=== PATIENT | male | born 1945 | race Caucasian/White ===

== ENCOUNTER → 2017-07-02 12:47 | Outpatient (CLI) | payer MEDICARE, OTHER, SELFPAY ==
--- NOTE | 2017-07-02 13:00 | ECHOCS_ITS ---
Reason For Study: Syncope, Near Syncope Procedure This was a 2D Doppler, Color Flow transthoracic echocardiogram. The exam was of poor technical quality due to body habitus. The study was technically difficult. Contrast injection was performed. Exam performed in department. Left Ventricle Normal LV size. Left ventricular systolic function is normal. The estimated ejection fraction is 65 %. No regional wall motion abnormalities noted. Right Ventricle Normal RV size. Normal systolic function. Atria Normal left atrium. Normal right atrium. No doppler evidence for ASD. Mitral Valve There is no mitral annular calcification. Normal mitral valve. Trivial mitral valve insufficiency. Tricuspid Valve Normal tricuspid valve. Trivial tricuspid valve insufficiency. Right ventricular systolic pressure estimated to be 28 mmHg. Aortic Valve Trisinus/trileaflet aortic valve. Normal aortic valve. Pulmonic Valve The pulmonic valve is not well visualized. Great Vessels Normal sized aortic root. Pericardium/Pleural No pericardial effusion. Medication Definity0.3ml given slow IV push to enhance endocardial definition. MMode/2D Measurements & Calculations LVIDd: 4.6 cm IVSd: 1.1 cm Ao root diam: 3.1 cm LVIDs: 2.7 cm LVPWd: 0.85 cm LA dimension: 4.3 cm RVDd: 3.8 cm FS: 42.7 % LAV(MOD-bp): 44.6 ml LA A4 area: 14.2 cm2 RA A4 area: 11.8 cm2 LAV(MOD-bp) Indexed: 20.9 ml/m2 LAV(MOD-sp2): 62.8 ml LAV(MOD-sp4): 29.7 ml Doppler Measurements & Calculations MV E max ashok: 53.4 cm/sec Lat Peak E' Ashok: 11.4 cm/sec Med Peak E' Ashok: 10.4 cm/sec MV A max ashok: 72.2 cm/sec E/E' lat: 4.7 E/E' med: 5.1 MV E/A: 0.74 Ao V2 max: 129.4 cm/sec LV V1 max: 115.6 cm/sec PA V2 max: 80.2 cm/sec Ao max P.7 mmHg LV V1 max P.3 mmHg Ao V2 mean: 95.2 cm/sec Ao mean P.9 mmHg Ao V2 VTI: 28.1 cm TR max ashok: 251.2 cm/sec TR max P.3 mmHg Interpretation Summary The study was technically difficult. Contrast injection was performed. Left ventricular systolic function is normal. The estimated ejection fraction is 65 %. Trivial mitral valve insufficiency. Trivial tricuspid valve insufficiency. Right ventricular systolic pressure estimated to be 28 mmHg. Ordering Physician: Giles Olguin Referring Physician: Jorge Jensen Chi Performed By: Darling Mcdonnell, DIANNE, RVT
== END ==
PROVIDERS: Family Provider Family Medicine Geriatric Medicine; PCP Family Medicine Geriatric Medicine; Visit Provider Internal Medicine Cardiovascular Disease
DX: R55 Syncope and collapse (principal)
CPT/HCPCS: 93306; Q9957; A4216; C8929

== ENCOUNTER → 2017-10-21 09:53 | Outpatient (CLI) | payer MEDICARE, OTHER, SELFPAY ==
[2017-10-21 12:56] LABS: Absolute Lymphocyte Count 1.49 X10^3/ul (0.83-4.51); Absolute Neutrophil Count 2.3 X10^3/uL (2.0-7.7); Basophil# 0.04 X10^3/uL; Basophil% 0.9 % (0-1); Eosinophil# 0.28 X10^3/uL; Hematocrit 43.8 % (40-54); Hemoglobin 14.8 g/dl (13.0-16.5); Lymphocyte # 1.49 X10^3/ul (4.0); Lymphocyte % 31.7 % (19-41); Mean Corp Hgb Conc 33.8 g/gl (32-36); Mean Corpuscular Hgb 31.3 pg (27.0-32.0); Mean Corpuscular Volume 92.6 fL (80-94); Mean Platelet Vol. 10.1 fl (6.2-12.0); Monocyte# 0.61 X10^3/uL; Neutrophil # 2.27 X10^3/uL (2.7-7.7); Neutrophil % 48.2 % (47-70); Platelet Count 254 K/mm3 (150-450); RBC Distribution Width CV 13.2 % (11.6-14.6); RBC Distribution Width SD 44.5 fl (35.1-43.9); Red Blood Count 4.73 M/mm3 (4.6-6.2); White Blood Count 4.7 K/mm3 (4.4-11.0)
[2017-10-21 13:01] LABS: POSITIVE COUNT NO; POSITIVE DIFFERENTIAL NO; POSITIVE MORPHOLOGY NO
[2017-10-21 13:27] LABS: AST(SGOT) 56 U/L (15-37); Alanine Aminotransfer ALT/SGPT 97 U/L (16-61); Albumin, Serum 3.8 g/dL (3.2-5.0); Alkaline Phosphatase 80 U/L (45-117); Anion Gap 6 (5-15); BUN 13 mg/dL (7-18); BUN/Creat Ratio 16.5 RATIO (10-20); Calcium,Total 8.9 mg/dL (8.5-10.1); Chloride 105 mmol/L (98-107); Creatinine, Serum 0.79 mg/dL (0.70-1.30); EST Glomerular Filtration Rate 102 mL/min (>60); Est Glom Filt Rate - Afr Amer 124 mL/min (>60); Globulin 3.7 g/dL (2.2-4.2); Glucose 92 mg/dL (74-106); Potassium 4.2 mmol/L (3.5-5.1); Protein, Total 7.5 g/dL (6.4-8.2); Sodium Level 137 mmol/L (136-145)
[2017-10-22 09:13] LABS: Vitamin D,25 Hydroxy 39.7 ng/mL (29.95-100.01)
== END ==
PROVIDERS: Family Provider Family Medicine Geriatric Medicine; PCP Family Medicine Geriatric Medicine; Visit Provider Family Medicine Geriatric Medicine
DX: E55.9 Vitamin D deficiency, unspecified (principal); R53.83 Other fatigue; F52.8 Other sexual dysfunction not due to a substance or known physiological condition
CPT/HCPCS: 36415; 80053; 82306; 84403; 84443; 85025

== ENCOUNTER → 2017-11-10 08:22 | Outpatient (CLI) | payer MEDICARE, OTHER, SELFPAY ==
--- NOTE | 2017-11-10 08:22 | DT_ITS ---
This patient was seen during an EMR downtime November 08, 2017 - November 15, 2017. This patient may have a combination of paper and electronic documentation or all paper documentation. All documentation is viewable within the e-chart portion of [facility] for each patient visit.
--- NOTE | 2017-11-10 08:30 | US_ITS ---
STUDY: ABDOMINAL ULTRASOUND - RIGHT UPPER QUADRANT REASON FOR VISIT: Male, 72 years old. ABNL LFTS TECHNIQUE: Ultrasound evaluation of the right upper quadrant was performed with real-time and static okeefe-scale imaging. TECHNICAL QUALITY: Adequate. COMPARISON: None. FINDINGS: Liver: The liver measures 12.9 cm. There is increased echogenicity consistent with fatty infiltration. The bile ducts are within normal limits. There is hepatic color flow. The direction of portal flow is hepatopetal. There is no demonstrated mass lesion. Gallbladder: Normal distended gallbladder. The gallbladder wall measures 2.6 mm. There is a negative sonographic Molina's sign. There is no pericholecystic fluid. There are no gallstones. Common Bile Duct (C.B.D.): The common bile duct measures 2.7 mm. Pancreas: There is nonvisualization of the pancreas. Right Kidney: Normal size of the right kidney. The right kidney measures 12.7 x 4.8 x 5.1 cm. Normal renal cortex. The right cortex measures 2.2 cm. There is no demonstrated renal mass or cyst. There is no right hydronephrosis. US/Abdomen Limited IMPRESSION: Normal right upper quadrant ultrasound examination. Electronically Signed: Archie Mandujano MD at 21:53 EDT , Service support ,
== END ==
PROVIDERS: Family Provider Family Medicine Geriatric Medicine; PCP Family Medicine Geriatric Medicine; Visit Provider Family Medicine Geriatric Medicine
DX: R79.89 Other specified abnormal findings of blood chemistry (principal)
CPT/HCPCS: 76705

== ENCOUNTER → 2017-11-25 09:44 | Outpatient (CLI) | payer MEDICARE, OTHER, SELFPAY ==
[2017-11-25 11:37] LABS: PSA,Total- Diagnostic 2.43 ng/mL (0.0-4.0)
== END ==
PROVIDERS: Family Provider Family Medicine Geriatric Medicine; PCP Family Medicine Geriatric Medicine; Visit Provider Urology
DX: R97.20 Elevated prostate specific antigen [PSA] (principal)
CPT/HCPCS: 36415; 84153

== ENCOUNTER → 2018-04-18 09:21 | Outpatient (CLI) | payer MEDICARE, OTHER, SELFPAY ==
[2018-04-18 09:51] LABS: Absolute Lymphocyte Count 2.14 X10^3/ul (0.83-4.51); Absolute Neutrophil Count 2.2 X10^3/uL (2.0-7.7); Basophil# 0.03 X10^3/uL; Basophil% 0.6 % (0-1); Eosinophil# 0.26 X10^3/uL; Eosinophils% 5.1 % (0-5); Hematocrit 43.7 % (40-54); Hemoglobin 14.8 g/dl (13.0-16.5); Lymphocyte # 2.14 X10^3/ul (4.0); Lymphocyte % 42.1 % (19-41); Mean Corp Hgb Conc 33.9 g/gl (32-36); Mean Corpuscular Volume 94.4 fL (80-94); Mean Platelet Vol. 9.3 fl (6.2-12.0); Monocyte# 0.42 X10^3/uL; Monocyte% 8.3 % (0-10); Neutrophil # 2.23 X10^3/uL (2.7-7.7); Neutrophil % 43.9 % (47-70); Platelet Count 241 K/mm3 (150-450); RBC Distribution Width CV 13.1 % (11.6-14.6); RBC Distribution Width SD 44.7 fl (35.1-43.9); Red Blood Count 4.63 M/mm3 (4.6-6.2); White Blood Count 5.1 K/mm3 (4.4-11.0)
[2018-04-18 10:02] LABS: POSITIVE COUNT NO; POSITIVE DIFFERENTIAL NO; POSITIVE MORPHOLOGY NO
[2018-04-18 10:36] LABS: Vitamin D,25 Hydroxy 37.7 ng/mL (29.95-100.01)
[2018-04-18 10:37] LABS: ALB/GLOB Ratio 0.9 RATIO (0.9-2.4); AST(SGOT) 19 U/L (15-37); Alanine Aminotransfer ALT/SGPT 26 U/L (16-61); Albumin, Serum 3.6 g/dL (3.2-5.0); Alkaline Phosphatase 67 U/L (45-117); Anion Gap 5 (5-15); BUN 11 mg/dL (7-18); BUN/Creat Ratio 13.8 RATIO (10-20); Calcium,Total 8.2 mg/dL (8.5-10.1); Chloride 106 mmol/L (98-107); Cholesterol 244 mg/dL (200); EST Glomerular Filtration Rate 101 mL/min (>60); Est Glom Filt Rate - Afr Amer 122 mL/min (>60); Globulin 3.8 g/dL (2.2-4.2); Glucose 91 mg/dL (74-106); High Density Lipoprotein 65 mg/dL; Potassium 4.1 mmol/L (3.5-5.1); Protein, Total 7.4 g/dL (6.4-8.2); Sodium Level 140 mmol/L (136-145); Thyroid Stim Hormone (TSH) 2.81 uIU/mL (0.358-3.74); Triglycerides 82 mg/dL; Very Low Density Lipoprotein 16 mg/dL (5-40)
== END ==
PROVIDERS: Family Provider Family Medicine Geriatric Medicine; PCP Family Medicine Geriatric Medicine; Referring Provider Family Medicine Geriatric Medicine; Visit Provider Family Medicine Geriatric Medicine
DX: E78.49 Other hyperlipidemia (principal); E55.9 Vitamin D deficiency, unspecified; R53.83 Other fatigue; F52.8 Other sexual dysfunction not due to a substance or known physiological condition
CPT/HCPCS: 80053; 80061; 82306; 84403; 84443; 85025

== ENCOUNTER → 2018-10-24 14:57 | Outpatient (CLI) | payer MEDICARE, OTHER, SELFPAY ==
[2018-06-13 08:36] VITALS: BMI 29.8
[2018-10-24 15:42] LABS: Absolute Lymphocyte Count 1.91 X10^3/ul (0.83-4.51); Absolute Neutrophil Count 3.4 X10^3/uL (2.0-7.7); Basophil# 0.03 X10^3/uL; Basophil% 0.5 % (0-1); Eosinophil# 0.19 X10^3/uL; Eosinophils% 3.1 % (0-5); Hematocrit 41.3 % (40-54); Hemoglobin 14.4 g/dl (13.0-16.5); Lymphocyte # 1.91 X10^3/ul (4.0); Lymphocyte % 31.5 % (19-41); Mean Corp Hgb Conc 34.9 g/gl (32-36); Mean Corpuscular Hgb 31.6 pg (27.0-32.0); Mean Corpuscular Volume 90.8 fL (80-94); Mean Platelet Vol. 9.8 fl (6.2-12.0); Monocyte# 0.58 X10^3/uL; Monocyte% 9.6 % (0-10); Neutrophil # 3.35 X10^3/uL (2.7-7.7); Neutrophil % 55.1 % (47-70); Platelet Count 234 K/mm3 (150-450); RBC Distribution Width CV 13.1 % (11.6-14.6); RBC Distribution Width SD 43.6 fl (35.1-43.9); Red Blood Count 4.55 M/mm3 (4.6-6.2); White Blood Count 6.1 K/mm3 (4.4-11.0)
[2018-10-24 15:43] LABS: POSITIVE COUNT NO; POSITIVE DIFFERENTIAL NO; POSITIVE MORPHOLOGY NO
[2018-10-24 16:08] LABS: Vitamin D,25 Hydroxy 40.6 ng/mL (29.95-100.01)
[2018-10-24 16:17] LABS: AST(SGOT) 21 U/L (15-37); Alanine Aminotransfer ALT/SGPT 30 U/L (16-61); Albumin, Serum 3.6 g/dL (3.2-5.0); Alkaline Phosphatase 64 U/L (45-117); Anion Gap 7 (5-15); BUN 13 mg/dL (7-18); BUN/Creat Ratio 14.6 RATIO (10-20); Calcium,Total 8.5 mg/dL (8.5-10.1); Chloride 106 mmol/L (98-107); Cholesterol 158 mg/dL (200); Creatinine, Serum 0.89 mg/dL (0.70-1.30); EST Glomerular Filtration Rate 89 mL/min (>60); Est Glom Filt Rate - Afr Amer 107 mL/min (>60); Globulin 3.7 g/dL (2.2-4.2); Glucose 88 mg/dL (74-106); High Density Lipoprotein 63 mg/dL; Protein, Total 7.3 g/dL (6.4-8.2); Sodium Level 140 mmol/L (136-145); Thyroid Stim Hormone (TSH) 1.16 uIU/mL (0.358-3.74); Triglycerides 94 mg/dL; Very Low Density Lipoprotein 19 mg/dL (5-40)
== END ==
PROVIDERS: Family Provider Family Medicine Geriatric Medicine; PCP Family Medicine Geriatric Medicine; Referring Provider Family Medicine Geriatric Medicine; Visit Provider Family Medicine Geriatric Medicine
DX: E78.5 Hyperlipidemia, unspecified (principal); E55.9 Vitamin D deficiency, unspecified; R53.83 Other fatigue; F52.8 Other sexual dysfunction not due to a substance or known physiological condition
CPT/HCPCS: 36415; 80053; 80061; 82306; 84403; 84443; 85025

== ENCOUNTER → 2018-12-07 08:30 | Outpatient (CLI) | payer MEDICARE, OTHER, SELFPAY ==
[2018-06-13 08:36] VITALS: BMI 29.8
[2018-12-07 09:39] LABS: PSA,Total - Annual Screen 2.55 ng/mL (0.00-4.00)
== END ==
PROVIDERS: Family Provider Family Medicine Geriatric Medicine; PCP Family Medicine Geriatric Medicine; Referring Provider Urology; Visit Provider Urology
DX: Z12.5 Encounter for screening for malignant neoplasm of prostate (principal)
CPT/HCPCS: 36415; 84153; G0103

== ENCOUNTER → 2019-04-20 08:30 | Outpatient (CLI) | payer MEDICARE, OTHER, SELFPAY ==
[2018-06-13 08:36] VITALS: BMI 29.8
[2019-04-20 08:52] LABS: Absolute Lymphocyte Count 2.07 X10^3/uL (0.83-4.51); Absolute Neutrophil Count 3.1 X10^3/uL (2.0-7.7); Basophil# 0.08 X10^3/uL; Basophil% 1.3 % (0-1); Eosinophil# 0.23 X10^3/uL; Eosinophils% 3.8 % (0-5); Hematocrit 44.9 % (40-54); Hemoglobin 15.4 g/dL (13.0-16.5); Lymphocyte # 2.07 X10^3/ul (4.0); Lymphocyte % 33.9 % (19-41); Mean Corp Hgb Conc 34.3 g/dL (32-36); Mean Corpuscular Hgb 31.7 pg (27.0-32.0); Mean Corpuscular Volume 92.4 fL (80-94); Mean Platelet Vol. 9.5 fl (6.2-12.0); Monocyte# 0.62 X10^3/uL; Monocyte% 10.2 % (0-10); NRBC Flagged by Analyzer 0 % (0-5); Neutrophil # 3.08 X10^3/uL (2.7-7.7); Neutrophil % 50.5 % (47-70); Platelet Count 260 K/mm3 (150-450); RBC Distribution Width CV 12.4 % (11.6-14.6); RBC Distribution Width SD 42.6 fl (35.1-43.9); Red Blood Count 4.86 M/mm3 (4.6-6.2); White Blood Count 6.1 K/mm3 (4.4-11.0)
[2019-04-20 09:28] LABS: Vitamin D,25 Hydroxy 38.5 ng/mL (29.95-100.01)
[2019-04-20 09:33] LABS: ALB/GLOB Ratio 1.1 RATIO (0.9-2.4); AST(SGOT) 25 U/L (15-37); Alanine Aminotransfer ALT/SGPT 32 U/L (16-61); Alkaline Phosphatase 63 U/L (45-117); Anion Gap 8 (5-15); BUN 12 mg/dL (7-18); BUN/Creat Ratio 12.8 RATIO (10-20); Calcium,Total 8.8 mg/dL (8.5-10.1); Chloride 103 mmol/L (98-107); Creatinine, Serum 0.94 mg/dL (0.70-1.30); EST Glomerular Filtration Rate 84 mL/min (>60); Est Glom Filt Rate - Afr Amer 102 mL/min (>60); Globulin 3.7 g/dL (2.2-4.2); Glucose 95 mg/dL (74-106); Potassium 3.8 mmol/L (3.5-5.1); Protein, Total 7.7 g/dL (6.4-8.2); Sodium Level 140 mmol/L (136-145); Thyroid Stim Hormone (TSH) 3.37 uIU/mL (0.358-3.74)
== END ==
PROVIDERS: Family Provider Family Medicine Geriatric Medicine; PCP Family Medicine Geriatric Medicine; Referring Provider Family Medicine Geriatric Medicine; Visit Provider Family Medicine Geriatric Medicine
DX: E55.9 Vitamin D deficiency, unspecified (principal); F52.8 Other sexual dysfunction not due to a substance or known physiological condition; R53.83 Other fatigue
CPT/HCPCS: 36415; 80053; 82306; 84403; 84443; 85025

== ENCOUNTER → 2019-10-19 08:44 | Outpatient (CLI) | payer MEDICARE, OTHER, SELFPAY ==
[2019-09-05 13:12] VITALS: BMI 29.8
[2019-10-19 09:29] LABS: Absolute Lymphocyte Count 1.75 X10^3/uL (0.83-4.51); Absolute Neutrophil Count 3.5 X10^3/uL (2.0-7.7); Basophil# 0.05 X10^3/uL; Basophil% 0.8 % (0-1); Eosinophil# 0.29 X10^3/uL; Eosinophils% 4.7 % (0-5); Hematocrit 39.6 % (40-54); Hemoglobin 13.7 g/dL (13.0-16.5); Lymphocyte # 1.75 X10^3/ul (4.0); Lymphocyte % 28.5 % (19-41); Mean Corp Hgb Conc 34.6 g/dL (32-36); Mean Corpuscular Hgb 31.9 pg (27.0-32.0); Mean Corpuscular Volume 92.3 fL (80-94); Mean Platelet Vol. 9.6 fl (6.2-12.0); Monocyte# 0.53 X10^3/uL; Monocyte% 8.6 % (0-10); NRBC Flagged by Analyzer 0 % (0-5); Neutrophil # 3.49 X10^3/uL (2.7-7.7); Neutrophil % 57.1 % (47-70); Platelet Count 212 K/mm3 (150-450); RBC Distribution Width CV 12.7 % (11.6-14.6); RBC Distribution Width SD 41.9 fl (35.1-43.9); Red Blood Count 4.29 M/mm3 (4.6-6.2); White Blood Count 6.1 K/mm3 (4.4-11.0)
[2019-10-19 10:04] LABS: Vitamin D,25 Hydroxy 41.3 ng/mL
[2019-10-19 10:06] LABS: ALB/GLOB Ratio 1.1 RATIO (0.9-2.4); AST(SGOT) 26 U/L (15-37); Alanine Aminotransfer ALT/SGPT 30 U/L (16-61); Albumin, Serum 3.8 g/dL (3.2-5.0); Alkaline Phosphatase 67 U/L (45-117); Anion Gap 10 (5-15); BUN 15 mg/dL (7-18); BUN/Creat Ratio 16.6 RATIO (10-20); Calcium,Total 8.4 mg/dL (8.5-10.1); Chloride 103 mmol/L (98-107); Cholesterol 161 mg/dL (200); EST Glomerular Filtration Rate 87 mL/min (>60); Est Glom Filt Rate - Afr Amer 106 mL/min (>60); Globulin 3.4 g/dL (2.2-4.2); Glucose 78 mg/dL (74-106); High Density Lipoprotein 71 mg/dL; Potassium 3.6 mmol/L (3.5-5.1); Protein, Total 7.2 g/dL (6.4-8.2); Sodium Level 139 mmol/L (136-145); Thyroid Stim Hormone (TSH) 1.66 uIU/mL (0.358-3.74); Triglycerides 63 mg/dL; Very Low Density Lipoprotein 13 mg/dL (5-40)
== END ==
PROVIDERS: PCP Family Medicine Geriatric Medicine; Referring Provider Family Medicine Geriatric Medicine; Visit Provider Family Medicine Geriatric Medicine
DX: E78.5 Hyperlipidemia, unspecified (principal); E55.9 Vitamin D deficiency, unspecified; R53.83 Other fatigue; F52.8 Other sexual dysfunction not due to a substance or known physiological condition
CPT/HCPCS: 36415; 80053; 80061; 82306; 84403; 84443; 85025

== ENCOUNTER → 2019-12-13 08:01 | Outpatient (CLI) | payer MEDICARE, OTHER, SELFPAY ==
[2019-09-05 13:12] VITALS: BMI 29.8
[2019-12-13 09:42] LABS: PSA,Total - Annual Screen 2.63 ng/mL (0.00-4.00)
== END ==
PROVIDERS: PCP Family Medicine Geriatric Medicine; Referring Provider Urology; Visit Provider Urology
DX: Z12.5 Encounter for screening for malignant neoplasm of prostate (principal)
CPT/HCPCS: 36415; 84153; G0103

== ENCOUNTER → 2020-08-06 08:12 | Outpatient (CLI) | payer MEDICARE, OTHER, SELFPAY ==
[2020-02-07 15:55] VITALS: BMI 26.6
[2020-08-06 09:41] LABS: Absolute Lymphocyte Count 1.83 X10^3/uL (0.83-4.51); Absolute Neutrophil Count 2.6 X10^3/uL (2.0-7.7); Basophil# 0.06 X10^3/uL; Basophil% 1.1 % (0-1); Eosinophil# 0.37 X10^3/uL; Eosinophils% 6.8 % (0-5); Hematocrit 43.3 % (40-54); Lymphocyte # 1.83 X10^3/ul (4.0); Lymphocyte % 33.5 % (19-41); Mean Corp Hgb Conc 32.3 g/dL (32-36); Mean Corpuscular Hgb 30.6 pg (27.0-32.0); Mean Corpuscular Volume 94.7 fL (80-94); Mean Platelet Vol. 9.8 fl (6.2-12.0); Monocyte# 0.56 X10^3/uL; Monocyte% 10.3 % (0-10); NRBC Flagged by Analyzer 0 % (0-5); Neutrophil # 2.63 X10^3/uL (2.7-7.7); Neutrophil % 48.1 % (47-70); Platelet Count 252 K/mm3 (150-450); RBC Distribution Width CV 12.9 % (11.6-14.6); RBC Distribution Width SD 44.7 fl (35.1-43.9); Red Blood Count 4.57 M/mm3 (4.6-6.2); White Blood Count 5.5 K/mm3 (4.4-11.0)
[2020-08-06 10:10] LABS: Vitamin D,25 Hydroxy 36.2 ng/mL
[2020-08-06 10:20] LABS: ALB/GLOB Ratio 1.1 RATIO (0.9-2.4); AST(SGOT) 18 U/L (15-37); Alanine Aminotransfer ALT/SGPT 24 U/L (16-61); Albumin, Serum 3.7 g/dL (3.2-5.0); Alkaline Phosphatase 71 U/L (45-117); Anion Gap 6 (5-15); BUN 16 mg/dL (7-18); Calcium,Total 8.7 mg/dL (8.5-10.1); Chloride 106 mmol/L (98-107); EST Glomerular Filtration Rate 100 mL/min (>60); Est Glom Filt Rate - Afr Amer 121 mL/min (>60); Globulin 3.5 g/dL (2.2-4.2); Glucose 82 mg/dL (74-106); Potassium 4.1 mmol/L (3.5-5.1); Protein, Total 7.2 g/dL (6.4-8.2); Sodium Level 139 mmol/L (136-145); Thyroid Stim Hormone (TSH) 3.45 uIU/mL (0.358-3.74)
[2020-08-07 08:36] LABS: Cholesterol 163 mg/dL (200); High Density Lipoprotein 75 mg/dL; Triglycerides 68 mg/dL; Very Low Density Lipoprotein 14 mg/dL (5-40)
== END ==
PROVIDERS: PCP Family Medicine Geriatric Medicine; Referring Provider Family Medicine Geriatric Medicine; Visit Provider Family Medicine Geriatric Medicine
DX: E78.5 Hyperlipidemia, unspecified (principal); E55.9 Vitamin D deficiency, unspecified; F52.8 Other sexual dysfunction not due to a substance or known physiological condition; R53.83 Other fatigue
CPT/HCPCS: 36415; 80053; 80061; 82306; 84403; 84443; 85025

== ENCOUNTER → 2020-12-09 07:38 | Outpatient (CLI) | payer MEDICARE, OTHER, SELFPAY ==
[2020-11-05 09:33] VITALS: BMI 26.6
== END ==
PROVIDERS: PCP Internal Medicine; Referring Provider Urology; Visit Provider Urology
DX: Z00.00 Encounter for general adult medical examination without abnormal findings (principal)

== ENCOUNTER → 2020-12-09 07:45 | Outpatient (CLI) | payer MEDICARE, OTHER, SELFPAY ==
[2020-11-05 09:33] VITALS: BMI 26.6
[2020-12-09 08:26] LABS: PSA,Total- Diagnostic 2.99 ng/mL (0.0-4.0)
== END ==
LOC: LAB.FUTURE 07:47 → LAB 07:50
PROVIDERS: PCP Internal Medicine; Referring Provider Urology; Visit Provider Urology
DX: R97.20 Elevated prostate specific antigen [PSA] (principal)
CPT/HCPCS: 36415; 84153

== ENCOUNTER → 2021-01-27 08:53 | Outpatient (CLI) | payer MEDICARE, OTHER, SELFPAY ==
[2021-01-27 10:54] LABS: Free T3 2.5 pg/mL (2.18-3.98); T4 Free Direct 0.77 ng/dL (0.76-1.46); Thyroid Stim Hormone (TSH) 4.25 uIU/mL (0.358-3.74)
== END ==
PROVIDERS: PCP Internal Medicine; Referring Provider Internal Medicine; Visit Provider Internal Medicine
DX: E03.9 Hypothyroidism, unspecified (principal); E78.5 Hyperlipidemia, unspecified
CPT/HCPCS: 36415; 84439; 84443; 84481

== ENCOUNTER → 2021-03-26 07:44 | Outpatient (CLI) | payer MEDICARE, OTHER, SELFPAY ==
[2021-03-26 09:59] LABS: Free T3 2.3 pg/mL (2.18-3.98); Thyroid Stim Hormone (TSH) 3.37 uIU/mL (0.358-3.74)
== END ==
PROVIDERS: PCP Internal Medicine; Referring Provider Internal Medicine; Visit Provider Internal Medicine
DX: E03.9 Hypothyroidism, unspecified (principal)
CPT/HCPCS: 36415; 84439; 84443; 84481

== ENCOUNTER → 2021-04-29 07:58 | Outpatient (CLI) | payer MEDICARE, OTHER, SELFPAY ==
[2021-04-29 08:40] LABS: Absolute Lymphocyte Count 2.15 X10^3/uL (0.83-4.51); Absolute Neutrophil Count 2.8 X10^3/uL (2.0-7.7); Basophil# 0.06 X10^3/uL; Eosinophil# 0.31 X10^3/uL; Eosinophils% 5.2 % (0-5); Hematocrit 41.2 % (40-54); Hemoglobin 14.2 g/dL (13.0-16.5); Lymphocyte # 2.15 X10^3/ul (0.83-4.51); Lymphocyte % 36.3 % (19-41); Mean Corp Hgb Conc 34.5 g/dL (32-36); Mean Corpuscular Hgb 32.1 pg (27.0-32.0); Mean Corpuscular Volume 93.2 fL (80-94); Mean Platelet Vol. 9.6 fl (6.2-12.0); Monocyte# 0.59 X10^3/uL; NRBC Flagged by Analyzer 0 % (0-5); Neutrophil % 47.3 % (47-70); Platelet Count 253 K/mm3 (150-450); RBC Distribution Width CV 12.8 % (11.6-14.6); Red Blood Count 4.42 M/mm3 (4.6-6.2); White Blood Count 5.9 K/mm3 (4.4-11.0)
[2021-04-29 09:11] LABS: ALB/GLOB Ratio 0.9 RATIO (0.9-2.4); AST(SGOT) 18 U/L (15-37); Alanine Aminotransfer ALT/SGPT 30 U/L (16-61); Albumin, Serum 3.6 g/dL (3.2-5.0); Alkaline Phosphatase 72 U/L (45-117); Anion Gap 4 (5-15); BUN 17 mg/dL (7-18); BUN/Creat Ratio 19.5 RATIO (10-20); Calcium,Total 8.7 mg/dL (8.5-10.1); Chloride 106 mmol/L (98-107); Cholesterol 153 mg/dL (200); Creatinine, Serum 0.87 mg/dL (0.70-1.30); EST Glomerular Filtration Rate 90 mL/min (>60); Est Glom Filt Rate - Afr Amer 109 mL/min (>60); Globulin 3.8 g/dL (2.2-4.2); Glucose 92 mg/dL (74-106); High Density Lipoprotein 73 mg/dL; Potassium 3.9 mmol/L (3.5-5.1); Protein, Total 7.4 g/dL (6.4-8.2); Sodium Level 140 mmol/L (136-145); Triglycerides 50 mg/dL; Very Low Density Lipoprotein 10 mg/dL (5-40)
== END ==
PROVIDERS: PCP Internal Medicine; Referring Provider Internal Medicine; Visit Provider Internal Medicine
DX: E78.5 Hyperlipidemia, unspecified (principal); K21.9 Gastro-esophageal reflux disease without esophagitis
CPT/HCPCS: 36415; 80053; 80061; 85025

== ENCOUNTER → 2021-11-04 | Outpatient (CLI) | payer MEDICARE, OTHER, SELFPAY ==
[2021-11-04 09:10] LABS: Absolute Lymphocyte Count 2.03 X10^3/uL (0.83-4.51); Absolute Neutrophil Count 2.5 X10^3/uL (2.0-7.7); Basophil# 0.07 X10^3/uL; Basophil% 1.3 % (0-1); Eosinophil# 0.28 X10^3/uL; Eosinophils% 5.2 % (0-5); Hematocrit 41.3 % (40-54); Hemoglobin 13.9 g/dL (13.0-16.5); Lymphocyte # 2.03 X10^3/ul (0.83-4.51); Lymphocyte % 37.8 % (19-41); Mean Corp Hgb Conc 33.7 g/dL (32-36); Mean Corpuscular Hgb 31.9 pg (27.0-32.0); Mean Corpuscular Volume 94.7 fL (80-94); Mean Platelet Vol. 9.5 fl (6.2-12.0); Monocyte# 0.53 X10^3/uL; Monocyte% 9.9 % (0-10); NRBC Flagged by Analyzer 0 % (0-5); Neutrophil # 2.45 X10^3/uL (2.7-7.7); Neutrophil % 45.6 % (47-70); Platelet Count 232 K/mm3 (150-450); RBC Distribution Width CV 13.2 % (11.6-14.6); RBC Distribution Width SD 46.2 fl (35.1-43.9); Red Blood Count 4.36 M/mm3 (4.6-6.2); White Blood Count 5.4 K/mm3 (4.4-11.0)
[2021-11-04 09:58] LABS: ALB/GLOB Ratio 1.1 RATIO (0.9-2.4); AST(SGOT) 18 U/L (15-37); Alanine Aminotransfer ALT/SGPT 28 U/L (16-61); Albumin, Serum 3.5 g/dL (3.2-5.0); Alkaline Phosphatase 66 U/L (45-117); Anion Gap 2 (5-15); BUN 13 mg/dL (7-18); BUN/Creat Ratio 15.6 RATIO (10-20); Calcium,Total 8.7 mg/dL (8.5-10.1); Chloride 109 mmol/L (98-107); Cholesterol 163 mg/dL (200); Creatinine, Serum 0.83 mg/dL (0.70-1.30); EST Glomerular Filtration Rate 95 mL/min (>60); Est Glom Filt Rate - Afr Amer 116 mL/min (>60); Free T3 2.4 pg/mL (2.18-3.98); Globulin 3.3 g/dL (2.2-4.2); Glucose 98 mg/dL (74-106); High Density Lipoprotein 75 mg/dL; Potassium 4.2 mmol/L (3.5-5.1); Protein, Total 6.8 g/dL (6.4-8.2); Sodium Level 142 mmol/L (136-145); T4 Free Direct 0.96 ng/dL (0.76-1.46); Thyroid Stim Hormone (TSH) 3.12 uIU/mL (0.358-3.74); Triglycerides 50 mg/dL; Very Low Density Lipoprotein 10 mg/dL (5-40)
== END | disposition home or self-care (01) ==
LOC: LAB 08:55
PROVIDERS: PCP Internal Medicine; Referring Provider Internal Medicine; Visit Provider Internal Medicine
DX: E78.5 Hyperlipidemia, unspecified (principal); E03.9 Hypothyroidism, unspecified; K21.9 Gastro-esophageal reflux disease without esophagitis
CPT/HCPCS: 36415; 80053; 80061; 84439; 84443; 84481; 85025

== ENCOUNTER → 2022-01-07 | Outpatient (CLI) | payer MEDICARE, OTHER, SELFPAY ==
[2022-01-07 10:14] LABS: PSA,Total- Diagnostic 2.68 ng/mL (0.0-4.0)
== END | disposition home or self-care (01) ==
LOC: LAB 08:35
PROVIDERS: PCP Internal Medicine; Referring Provider Urology; Visit Provider Urology
DX: R97.20 Elevated prostate specific antigen [PSA] (principal)
CPT/HCPCS: 36415; 84153

== ENCOUNTER → 2022-04-06 | Outpatient (CLI) | payer MEDICARE, OTHER, SELFPAY ==
[2022-04-06 10:27] LABS: Basophil# 0.09 X10^3/uL; Basophil% 1.1 % (0-1); Eosinophil# 0.36 X10^3/uL; Eosinophils% 4.3 % (0-5); Hematocrit 42.8 % (40-54); Hemoglobin 14.7 g/dL (13.0-16.5); Lymphocyte % 25.1 % (19-41); Mean Corp Hgb Conc 34.3 g/dL (32-36); Mean Corpuscular Hgb 32.2 pg (27.0-32.0); Mean Corpuscular Volume 93.9 fL (80-94); Mean Platelet Vol. 9.6 fl (6.2-12.0); Monocyte# 0.75 X10^3/uL; NRBC Flagged by Analyzer 0 % (0-5); Neutrophil # 5.04 X10^3/uL (2.7-7.7); Neutrophil % 60.1 % (47-70); Platelet Count 294 K/mm3 (150-450); RBC Distribution Width SD 44.6 fl (35.1-43.9); Red Blood Count 4.56 M/mm3 (4.6-6.2); White Blood Count 8.4 K/mm3 (4.4-11.0)
[2022-04-06 11:00] LABS: ALB/GLOB Ratio 0.9 RATIO (0.9-2.4); AST(SGOT) 17 U/L (15-37); Alanine Aminotransfer ALT/SGPT 24 U/L (16-61); Albumin, Serum 3.5 g/dL (3.2-5.0); Alkaline Phosphatase 78 U/L (45-117); Anion Gap 5 (5-15); BUN 14 mg/dL (7-18); Calcium,Total 8.6 mg/dL (8.5-10.1); Chloride 104 mmol/L (98-107); Cholesterol 152 mg/dL (200); Creatinine, Serum 0.78 mg/dL (0.70-1.30); EST Glomerular Filtration Rate 103 mL/min (>60); Est Glom Filt Rate - Afr Amer 124 mL/min (>60); Free T3 2.2 pg/mL (2.18-3.98); Globulin 3.9 g/dL (2.2-4.2); Glucose 83 mg/dL (74-106); High Density Lipoprotein 65 mg/dL; Potassium 3.9 mmol/L (3.5-5.1); Protein, Total 7.4 g/dL (6.4-8.2); Sodium Level 139 mmol/L (136-145); T4 Free Direct 0.99 ng/dL (0.76-1.46); Thyroid Stim Hormone (TSH) 4.21 uIU/mL (0.358-3.74); Triglycerides 74 mg/dL; Very Low Density Lipoprotein 15 mg/dL (5-40)
== END | disposition home or self-care (01) ==
LOC: LAB 08:59
PROVIDERS: PCP Internal Medicine; Referring Provider Internal Medicine; Visit Provider Internal Medicine
DX: E78.5 Hyperlipidemia, unspecified (principal); E03.9 Hypothyroidism, unspecified; E55.9 Vitamin D deficiency, unspecified; K21.9 Gastro-esophageal reflux disease without esophagitis
CPT/HCPCS: 36415; 80053; 80061; 82306; 84439; 84443; 84481; 85025

== ENCOUNTER → 2022-10-14 | Outpatient (CLI) | payer MEDICARE, OTHER, SELFPAY ==
[2022-10-14 07:39] LABS: Absolute Lymphocyte Count 2.04 X10^3/uL (0.83-4.51); Absolute Neutrophil Count 2.2 X10^3/uL (2.0-7.7); Basophil# 0.06 X10^3/uL; Basophil% 1.2 % (0-1); Eosinophil# 0.36 X10^3/uL; Eosinophils% 6.9 % (0-5); Hematocrit 42.8 % (40-54); Hemoglobin 14.3 g/dL (13.0-16.5); Lymphocyte # 2.04 X10^3/ul (0.83-4.51); Lymphocyte % 39.3 % (19-41); Mean Corp Hgb Conc 33.4 g/dL (32-36); Mean Corpuscular Hgb 31.6 pg (27.0-32.0); Mean Corpuscular Volume 94.7 fL (80-94); Mean Platelet Vol. 9.9 fl (6.2-12.0); Monocyte# 0.56 X10^3/uL; Monocyte% 10.8 % (0-10); NRBC Flagged by Analyzer 0 % (0-5); Neutrophil # 2.16 X10^3/uL (2.7-7.7); Neutrophil % 41.6 % (47-70); Platelet Count 212 K/mm3 (150-450); RBC Distribution Width CV 13.3 % (11.6-14.6); RBC Distribution Width SD 46.4 fl (35.1-43.9); Red Blood Count 4.52 M/mm3 (4.6-6.2); White Blood Count 5.2 K/mm3 (4.4-11.0)
[2022-10-14 08:12] LABS: ALB/GLOB Ratio 1.1 RATIO (0.9-2.4); AST(SGOT) 21 U/L (15-37); Alanine Aminotransfer ALT/SGPT 27 U/L (16-61); Albumin, Serum 3.6 g/dL (3.2-5.0); Alkaline Phosphatase 68 U/L (45-117); Anion Gap 4 (5-15); BUN 12 mg/dL (7-18); BUN/Creat Ratio 14.4 RATIO (10-20); Calcium,Total 8.7 mg/dL (8.5-10.1); Chloride 109 mmol/L (98-107); Cholesterol 156 mg/dL (200); Creatinine, Serum 0.84 mg/dL (0.70-1.30); EST Glomerular Filtration Rate 95 mL/min (>60); Est Glom Filt Rate - Afr Amer 115 mL/min (>60); Free T3 2.4 pg/mL (2.18-3.98); Globulin 3.2 g/dL (2.2-4.2); Glucose 100 mg/dL (74-106); High Density Lipoprotein 75 mg/dL; Potassium 4.2 mmol/L (3.5-5.1); Protein, Total 6.8 g/dL (6.4-8.2); Sodium Level 142 mmol/L (136-145); T4 Free Direct 0.87 ng/dL (0.76-1.46); Thyroid Stim Hormone (TSH) 3.68 uIU/mL (0.358-3.74); Triglycerides 54 mg/dL; Very Low Density Lipoprotein 11 mg/dL (5-40)
== END | disposition home or self-care (01) ==
LOC: LAB 07:10
PROVIDERS: PCP Internal Medicine; Referring Provider Internal Medicine; Visit Provider Internal Medicine
DX: E03.9 Hypothyroidism, unspecified (principal); E78.5 Hyperlipidemia, unspecified; R63.4 Abnormal weight loss; Z13.220 Encounter for screening for lipoid disorders
CPT/HCPCS: 36415; 80053; 80061; 84439; 84443; 84481; 85025

== ENCOUNTER → 2022-10-21 | Outpatient (CLI) | payer MEDICARE, OTHER, SELFPAY ==
--- NOTE | 2022-10-21 08:36 | RAD_ITS ---
STUDY: X-RAY CHEST REASON FOR EXAM: Male, 77 years old. Right upper lung rales. Asbestos exposure. TECHNIQUE: PA and lateral views of the chest. COMPARISON: None. FINDINGS: Lungs are mildly hyperexpanded. There is no focal mass or infiltrate. There is no demonstrated pleural abnormality. Normal size heart. Normal mediastinum and ivan. Normal visualized pulmonary arteries. Normal visualized aortic arch and descending thoracic aorta. There are diffuse degenerative changes of the visualized thoracic spine. There is degenerative osteoarthritis of the bilateral shoulders. There is no demonstrated abnormality of the visualized soft tissue structures of the upper abdomen. RAD/Chest PA and Lateral IMPRESSION: Degenerative changes, as described above. No demonstrated acute cardiopulmonary process. Electronically Signed: Hamzah Jung DO at 20:41 EDT ,
== END | disposition home or self-care (01) ==
LOC: RAD 08:35
PROVIDERS: PCP Internal Medicine; Referring Provider Internal Medicine; Visit Provider Internal Medicine
DX: R09.89 Other specified symptoms and signs involving the circulatory and respiratory systems (principal); Z77.090 Contact with and (suspected) exposure to asbestos
CPT/HCPCS: 71046

== ENCOUNTER → 2022-10-27 | Outpatient (CLI) | payer MEDICARE, OTHER, SELFPAY ==
--- NOTE | 2022-10-27 13:21 | CT_ITS ---
INDICATION: Chest pain/pressure, history of asbestos exposure EXAMINATION: CT CHEST WITHOUT CONTRAST - CT Chest W/O Contrast Injection TECHNIQUE: Helically acquired images were obtained of the chest. A radiation dose optimization technique was used for this scan. IV Contrast dosage and agent: None. COMPARISON: Previous plain films FINDINGS: LUNGS, PLEURA AND LARGE AIRWAYS: No masses, consolidation, or edema. No pleural effusion or thickening. No pneumothorax. Subtle scarring noted in both lung bases. THYROID: No thyroid lesions. HEART AND PERICARDIUM: Heart size is normal. No pericardial effusion. CORONARY ARTERIES: Coronary artery calcification is not seen. VESSELS: Thoracic aorta is not dilated. MEDIASTINUM AND NAKITA: No suspicious mediastinal or hilar adenopathy. Esophagus is unremarkable. No hiatal hernia. No calcified pleural plaques noted. UPPER ABDOMEN: No acute pathology. BONES: Bony structures show degenerative change CT/Chest without Contrast IMPRESSION: No acute pulmonary process. No suspicious pleural plaques or evidence of aggressive pleural lesions No suspicious adenopathy Degenerative bony changes Electronically Signed: Nasir Chappell MD at 15:57 EDT ,
== END | disposition home or self-care (01) ==
LOC: CT 13:20
PROVIDERS: PCP Internal Medicine; Referring Provider Internal Medicine; Visit Provider Internal Medicine
DX: Z77.090 Contact with and (suspected) exposure to asbestos (principal)
CPT/HCPCS: 71250

== ENCOUNTER → 2023-02-25 | Outpatient (CLI) | payer MEDICARE, OTHER, SELFPAY ==
--- NOTE | 2023-02-26 16:07 | STRESSREP ---
Stress Test Report Exercise myocardial perfusion stress test. 77-year-old man with a history of chest pain Stress protocol: Resting EKG demonstrates normal sinus rhythm with a rate of 64 bpm resting blood pressure is 120/74 mmHg. The patient exercised according to the regular Tremaine protocol for a total duration of 9 minutes attaining a maximum heart rate of 150 bpm which was 104% of maximum predicted heart rate; the maximum workload was 10.1 metabolic equivalents. At rest there were no ST or T wave changes noted to suggest ischemia and at peak exercise upsloping ST changes only were noted which did not meet the criteria for ischemia. No clinical angina was noted the test was terminated due to the target heart rate being achieved/fatigue. The peak blood pressure was 162/80 mmHg. Rate-pressure product was 22,500. Myocardial perfusion protocol. 11.5 mCi of technetium 99m sestamibi was injected at rest. The patient exercised according to regular Tremaine protocol for total duration of 9 minutes and at peak exercise 35.2 mCi of technetium 99m sestamibi was injected stress images were obtained stress and rest images were reconstructed in comparing the short axis vertical long and horizontal long axis. Gated images were also obtained. Perfusion SPECT analysis: Review of the stress images demonstrate normal uptake of tracer noted in all areas of the myocardium. The resting images similarly demonstrate normal uptake of tracer noted in all areas of the myocardium. No areas of reversibility are noted to suggest ischemia no previous infarct was noted. Gated SPECT analysis: The gated ejection fraction is 65%. Conclusion: Normal exercise myocardial perfusion stress test at a high workload Preserved ejection fraction.
== END | disposition home or self-care (01) ==
LOC: CVS 06:02
PROVIDERS: PCP Internal Medicine; Referring Provider Internal Medicine Cardiovascular Disease; Visit Provider Internal Medicine Cardiovascular Disease
DX: R07.89 Other chest pain (principal)
CPT/HCPCS: 78452; 93017; A9500

== ENCOUNTER → 2023-03-18 | Outpatient (CLI) | payer MEDICARE, OTHER, SELFPAY ==
[2023-03-18 09:47] LABS: PSA,Total - Annual Screen 3.99 ng/mL (0.00-4.00)
== END | disposition home or self-care (01) ==
LOC: LAB.FUTURE 08:21 → LAB 08:26
PROVIDERS: PCP Internal Medicine; Visit Provider Urology
DX: Z12.5 Encounter for screening for malignant neoplasm of prostate (principal)
CPT/HCPCS: 36415; 84153; G0103

== ENCOUNTER → 2023-04-13 | Outpatient (CLI) | payer MEDICARE, OTHER, SELFPAY ==
[2023-04-13 08:16] LABS: Absolute Lymphocyte Count 2.15 X10^3/uL (0.83-4.51); Absolute Neutrophil Count 2.8 X10^3/uL (2.0-7.7); Basophil# 0.08 X10^3/uL; Basophil% 1.4 % (0-1); Eosinophil# 0.21 X10^3/uL; Eosinophils% 3.7 % (0-5); Hematocrit 43.4 % (40-54); Hemoglobin 14.6 g/dL (13.0-16.5); Lymphocyte # 2.15 X10^3/ul (0.83-4.51); Lymphocyte % 37.9 % (19-41); Mean Corp Hgb Conc 33.6 g/dL (32-36); Mean Corpuscular Hgb 32.1 pg (27.0-32.0); Mean Corpuscular Volume 95.4 fL (80-94); Mean Platelet Vol. 9.6 fl (6.2-12.0); Monocyte# 0.46 X10^3/uL; Monocyte% 8.1 % (0-10); NRBC Flagged by Analyzer 0 % (0-5); Neutrophil # 2.76 X10^3/uL (2.7-7.7); Neutrophil % 48.7 % (47-70); Platelet Count 226 K/mm3 (150-450); RBC Distribution Width SD 45.9 fl (35.1-43.9); Red Blood Count 4.55 M/mm3 (4.6-6.2); White Blood Count 5.7 K/mm3 (4.4-11.0)
[2023-04-13 08:43] LABS: Vitamin D,25 Hydroxy 52.4 ng/mL
[2023-04-13 08:54] LABS: ALB/GLOB Ratio 1.2 RATIO (0.9-2.4); AST(SGOT) 23 U/L (15-37); Alanine Aminotransfer ALT/SGPT 28 U/L (16-61); Albumin, Serum 3.8 g/dL (3.2-5.0); Alkaline Phosphatase 68 U/L (45-117); Anion Gap 1 (5-15); BUN 18 mg/dL (7-18); BUN/Creat Ratio 19.8 RATIO (10-20); Calcium,Total 8.8 mg/dL (8.5-10.1); Chloride 106 mmol/L (98-107); Cholesterol 167 mg/dL (200); Creatinine, Serum 0.91 mg/dL (0.70-1.30); EST Glomerular Filtration Rate 86 mL/min (>60); Est Glom Filt Rate - Afr Amer 104 mL/min (>60); Free T3 2.6 pg/mL (2.18-3.98); Globulin 3.3 g/dL (2.2-4.2); Glucose 96 mg/dL (74-106); High Density Lipoprotein 77 mg/dL; Protein, Total 7.1 g/dL (6.4-8.2); Sodium Level 138 mmol/L (136-145); Thyroid Stim Hormone (TSH) 3.73 uIU/mL (0.358-3.74); Triglycerides 75 mg/dL; Very Low Density Lipoprotein 15 mg/dL (5-40)
== END | disposition home or self-care (01) ==
LOC: LAB 08:02
PROVIDERS: PCP Internal Medicine; Referring Provider Internal Medicine; Visit Provider Internal Medicine
DX: E03.9 Hypothyroidism, unspecified (principal); E78.5 Hyperlipidemia, unspecified; E55.9 Vitamin D deficiency, unspecified
CPT/HCPCS: 36415; 80053; 80061; 82306; 84439; 84443; 84481; 85025

== ENCOUNTER → 2023-05-17 | Outpatient (CLI) | payer MEDICARE, OTHER, SELFPAY ==
--- NOTE | 2023-05-17 11:22 | RAD_ITS ---
STUDY: X-RAY - LEFT ANKLE REASON FOR EXAM: Male, 78 years old. Fall TECHNIQUE: 3 view(s) of the ankle. COMPARISON: None. FINDINGS: Normal visualized distal tibia and fibula. Normal medial and lateral malleoli. Normal tibiotalar articulation and ankle mortise. Normal visualized talus and calcaneus. The visualized subtalar, talonavicular, calcaneocuboid and tarsal articulations are normal. Soft tissue swelling. RAD/Ankle min 3 Views IMPRESSION: Soft tissue swelling. Electronically Signed: Juan Guthrie MD at 11:40 EST ,
== END | disposition home or self-care (01) ==
LOC: MTRAD 11:19
PROVIDERS: PCP Internal Medicine; Referring Provider Physician Assistant; Visit Provider Physician Assistant
DX: Z04.3 Encounter for examination and observation following other accident (principal); W19.XXXA Unspecified fall, initial encounter
CPT/HCPCS: 73610

== ENCOUNTER → 2023-06-01 | Outpatient (CLI) | payer OTHER, SELFPAY ==
--- NOTE | 2023-06-01 07:17 | CT_ITS ---
INDICATION: LUNG SCARRING, ASBESTOS EXPOSURE *COMPARE 10/2022* EXAMINATION: CT CHEST WITHOUT CONTRAST - CT Chest W/O Contrast Injection TECHNIQUE: Helically acquired images were obtained of the chest. A radiation dose optimization technique was used for this scan. IV Contrast dosage and agent: None. RADIATION DOSAGE (If Supplied By Facility): CTDIvol = ( 11.28 ) mGy, DLP = ( 422.93 ) mGycm COMPARISON: Prior study dated: 10/27/2022 FINDINGS: LUNGS, PLEURA AND LARGE AIRWAYS: No masses, consolidation, or edema. No pleural effusion or thickening. 4 mm nodule in the superior segment of the right lower lobe seen on image 72 series 4 new since the previous examination. Mild scarring in the lower lungs unchanged. THYROID: No thyroid lesions. HEART AND PERICARDIUM: Heart size is normal. No pericardial effusion. Possible minimal coronary calcifications. VESSELS: Thoracic aorta is not dilated. MEDIASTINUM AND NAKITA: No mediastinal or hilar adenopathy. Esophagus is unremarkable. No hiatal hernia. UPPER ABDOMEN: No acute pathology. BONES: Degenerative changes of the spine. Increased kyphosis. CT/Chest without Contrast IMPRESSION: 4 mm right lower lobe nodule which although usually requires no further follow-up exam however, since it is new since previous examination, follow-up exam in 3-6 months is recommended. Electronically Signed: Willam Shea MD at 9:27 EST ,
== END | disposition home or self-care (01) ==
PROVIDERS: PCP Internal Medicine
DX: J98.4 Other disorders of lung (principal); Z77.090 Contact with and (suspected) exposure to asbestos
CPT/HCPCS: 71250

== ENCOUNTER → 2023-11-22 | Outpatient (CLI) | payer MEDICARE, OTHER, SELFPAY ==
--- NOTE | 2023-11-22 06:47 | CT_ITS ---
INDICATION: Abnormal findings on diagnostic imaging of other s EXAMINATION: CT CHEST WITHOUT CONTRAST TECHNIQUE: Helically acquired images were obtained of the chest. The protocol utilizes one or more of the following dose reduction techniques: automated exposure control, adjustment of mA and/or kV according to patient size,and/or use of iterative reconstruction technique. IV Contrast dosage and agent: None. RADIATION DOSAGE (If Supplied By Facility): CTDIvol = ( 11.71 ) mGy, DLP = ( 421.23 ) mGycm COMPARISON: Prior study dated: 06/01/2023 FINDINGS: LUNGS, PLEURA AND LARGE AIRWAYS: Bilateral lower lung stranding/scarring unchanged. No focal infiltrate. No pleural effusion or thickening. No pneumothorax. THYROID: No thyroid lesions. HEART AND PERICARDIUM: Heart size is normal. No pericardial effusion. CORONARY ARTERIES: Coronary artery calcification is seen. VESSELS: Thoracic aorta is not dilated. MEDIASTINUM AND NAKITA: No mediastinal or hilar adenopathy. Esophagus is unremarkable. No hiatal hernia. UPPER ABDOMEN: No acute pathology. BONES: Degenerative changes of the spine. CT/Chest without Contrast IMPRESSION: 1. No acute pulmonary infiltrates, adenopathy or pleural effusions. 2. Mild scarring in the lower lungs. Electronically Signed: Willam Shea MD at 9:34 EDT ,
[2023-11-22 09:33] LABS: AST(SGOT) 29 U/L (15-37); Alanine Aminotransfer ALT/SGPT 33 U/L (16-61); Albumin, Serum 3.7 g/dL (3.2-5.0); Alkaline Phosphatase 73 U/L (45-117); Anion Gap 6 (5-15); BUN 20 mg/dL (7-18); BUN/Creat Ratio 21.6 RATIO (10-20); Chloride 107 mmol/L (98-107); Cholesterol 163 mg/dL (200); Creatinine, Serum 0.93 mg/dL (0.70-1.30); EST Glomerular Filtration Rate 84 mL/min (>60); Est Glom Filt Rate - Afr Amer 101 mL/min (>60); Free T3 2.7 pg/mL (2.18-3.98); Globulin 3.7 g/dL (2.2-4.2); Glucose 95 mg/dL (74-106); High Density Lipoprotein 70 mg/dL; Protein, Total 7.4 g/dL (6.4-8.2); Sodium Level 139 mmol/L (136-145); T4 Free Direct 0.85 ng/dL (0.76-1.46); Thyroid Stim Hormone (TSH) 4.29 uIU/mL (0.358-3.74); Triglycerides 70 mg/dL; Very Low Density Lipoprotein 14 mg/dL (5-40)
== END | disposition home or self-care (01) ==
PROVIDERS: PCP Internal Medicine
DX: Z13.220 Encounter for screening for lipoid disorders (principal); R93.89 Abnormal findings on diagnostic imaging of other specified body structures; E78.5 Hyperlipidemia, unspecified; E03.9 Hypothyroidism, unspecified
CPT/HCPCS: 36415; 71250; 80053; 80061; 84439; 84443; 84481

== ENCOUNTER → 2024-01-24 | Outpatient (CLI) | payer MEDICARE, OTHER, SELFPAY ==
[2024-01-24 10:13] LABS: Free T3 2.6 pg/mL (2.18-3.98); T4 Free Direct 0.97 ng/dL (0.76-1.46)
== END | disposition home or self-care (01) ==
PROVIDERS: PCP Internal Medicine; Referring Provider Internal Medicine; Visit Provider Internal Medicine
DX: E03.9 Hypothyroidism, unspecified (principal)
CPT/HCPCS: 36415; 84439; 84443; 84481

== ENCOUNTER → 2024-02-17 | Outpatient (CLI) | payer OTHER, SELFPAY ==
--- NOTE | 2024-02-17 06:41 | MRI_ITS ---
STUDY: MRI RIGHT KNEE REASON FOR EXAM: Male, 78 years old. Knee pain. TECHNIQUE: Standardized fat and water weighted pulse sequences were obtained in all 3 orthogonal planes. COMPARISON: Right knee MRI dated 02/21/2016. FINDINGS: There is free edge blunting of the posterior horn of the medial meniscus (sagittal PD series 3 image 28), compatible with postoperative changes from partial medial meniscectomy and surgical recontouring. However, there is a focal radial tear of the posterior body of the medial meniscus (sagittal PD series 3 image 40; axial T2 series 2 image 18; coronal T2 series 6 image 15). Normal hyaline cartilage of the medial femorotibial compartment. Normal medial femoral condyle and tibial plateau. Normal medial collateral ligamentous complex (MCL). Normal distal semimembranosus, gracilis and semitendinosus tendons. There is a suspected new small horizontal tear of the body of the lateral meniscus (coronal PD series 5 images 14-15). Normal hyaline cartilage of the lateral femorotibial compartment. Normal lateral femoral condyle and tibial plateau. Normal proximal tibiofibular articulation. Normal lateral collateral (fibular) ligament. Normal popliteus tendon. Normal biceps femoris tendon. There is a chronic interstitial sprain of the ACL without focal tear or laxity (sagittal T2 series 4 images 12-13). Normal posterior cruciate ligament (PCL). Normal congruent patellofemoral articulation. Normal hyaline cartilage of the patellofemoral compartment. Normal medial and lateral patellar retinaculum. Normal quadriceps tendon. Normal patellar tendon. Normal Hoffa''s fat pad. There is a small joint effusion. There is no popliteal cyst. There is minimal subcutaneous soft tissue edema along the anteromedial aspect of the knee. There is no acute fracture. MRI/Lower Ext Joint Only (Routine) IMPRESSION: Free edge blunting of the posterior horn of the medial meniscus, compatible with postoperative changes from partial medial meniscectomy and surgical recontouring. Focal radial tear of the posterior body of the medial meniscus. Suspected new small horizontal tear of the body of the lateral meniscus. Chronic interstitial sprain of the ACL without focal tear or laxity. Small joint effusion. Electronically Signed: Chu Rosas MD at 9:46 EDT ,
--- NOTE | 2024-02-17 06:41 | MRI_ITS ---
STUDY: MRI LEFT KNEE REASON FOR EXAM: Male, 78 years old. Knee pain. TECHNIQUE: Standardized fat and water weighted pulse sequences were obtained in all 3 orthogonal planes. COMPARISON: None. FINDINGS: There is a horizontal-oblique undersurface tear of the posterior horn of the medial meniscus (sagittal PD series 3 images 8-13). Normal hyaline cartilage of the medial femorotibial compartment. Normal medial femoral condyle and tibial plateau. Normal medial collateral ligamentous complex (MCL). Normal distal semimembranosus, gracilis and semitendinosus tendons. There is a partial radial tear of the free edge of the posterior horn of the lateral meniscus (sagittal PD series 3 images 30-31). Normal hyaline cartilage of the lateral femorotibial compartment. Normal lateral femoral condyle and tibial plateau. Normal proximal tibiofibular articulation. Normal lateral collateral (fibular) ligament. Normal popliteus tendon. Normal biceps femoris tendon. There is an interstitial sprain of the ACL without focal tear or laxity (sagittal T2 series 4 image 14). Normal posterior cruciate ligament (PCL). 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 There is slight lateral patellar subluxation. Normal medial and lateral patellar retinaculum. Normal quadriceps tendon. Normal patellar tendon. Normal Hoffa''s fat pad. There is mild deep infrapatellar bursitis. There is a small joint effusion. There is no popliteal cyst. There is mild subcutaneous soft tissue edema along the anteromedial and lateral aspects of the knee. MRI/Lower Ext Joint Only (Routine) IMPRESSION: Horizontal-oblique undersurface tear of the posterior horn of the medial meniscus. Partial radial tear of the free edge of the posterior horn of the lateral meniscus. Interstitial sprain of the ACL without focal tear or laxity. Low-grade chondromalacia patellae, with slight lateral patellar subluxation. Mild deep infrapatellar bursitis. Small joint effusion. Mild subcutaneous soft tissue edema along the anteromedial and lateral aspects of the knee. Electronically Signed: Chu Rosas MD at 9:35 EDT ,
== END | disposition home or self-care (01) ==
LOC: MRI 06:20
PROVIDERS: PCP Internal Medicine
DX: M25.561 Pain in right knee (principal); M25.562 Pain in left knee
CPT/HCPCS: 73721

== ENCOUNTER → 2024-04-11 | Outpatient (CLI) | payer MEDICARE, OTHER, SELFPAY ==
[2024-04-11 09:48] LABS: PSA,Total- Diagnostic 3.29 ng/mL (0.0-4.0)
== END | disposition home or self-care (01) ==
LOC: LAB 08:56
PROVIDERS: PCP Internal Medicine; Referring Provider Urology; Visit Provider Urology
DX: R97.20 Elevated prostate specific antigen [PSA] (principal)
CPT/HCPCS: 36415; 84153

== ENCOUNTER → 2024-05-23 | Outpatient (CLI) | payer MEDICARE, OTHER, SELFPAY ==
[2024-05-23 07:57] LABS: Absolute Lymphocyte Count 1.89 X10^3/uL (0.83-4.51); Absolute Neutrophil Count 3.2 X10^3/uL (2.0-7.7); Basophil# 0.07 X10^3/uL; Basophil% 1.1 % (0-1); Eosinophil# 0.49 X10^3/uL; Eosinophils% 7.8 % (0-5); Hematocrit 41.7 % (40-54); Hemoglobin 14.4 g/dL (13.0-16.5); Lymphocyte # 1.89 X10^3/ul (0.83-4.51); Mean Corp Hgb Conc 34.5 g/dL (32-36); Mean Corpuscular Hgb 32.1 pg (27.0-32.0); Mean Corpuscular Volume 93.1 fL (80-94); Mean Platelet Vol. 9.2 fl (6.2-12.0); Monocyte% 9.5 % (0-10); NRBC Flagged by Analyzer 0 % (0-5); Neutrophil # 3.22 X10^3/uL (2.7-7.7); Neutrophil % 51.1 % (47-70); Platelet Count 252 K/mm3 (150-450); RBC Distribution Width CV 12.6 % (11.6-14.6); RBC Distribution Width SD 43.1 fl (35.1-43.9); Red Blood Count 4.48 M/mm3 (4.6-6.2); White Blood Count 6.3 K/mm3 (4.4-11.0)
[2024-05-23 08:37] LABS: AST(SGOT) 20 U/L (15-37); Alanine Aminotransfer ALT/SGPT 28 U/L (16-61); Albumin, Serum 3.6 g/dL (3.2-5.0); Alkaline Phosphatase 74 U/L (45-117); Anion Gap 4 (5-15); BUN 14 mg/dL (7-18); BUN/Creat Ratio 14.1 RATIO (10-20); Calcium,Total 9.1 mg/dL (8.5-10.1); Chloride 106 mmol/L (98-107); Cholesterol 154 mg/dL (200); Creatinine, Serum 0.99 mg/dL (0.70-1.30); EST Glomerular Filtration Rate 78 mL/min (>60); Est Glom Filt Rate - Afr Amer 94 mL/min (>60); Free T3 2.6 pg/mL (2.18-3.98); Globulin 3.7 g/dL (2.2-4.2); Glucose 97 mg/dL (74-106); High Density Lipoprotein 76 mg/dL; Potassium 3.9 mmol/L (3.5-5.1); Protein, Total 7.3 g/dL (6.4-8.2); Sodium Level 139 mmol/L (136-145); T4 Free Direct 1.09 ng/dL (0.76-1.46); Triglycerides 69 mg/dL; Very Low Density Lipoprotein 14 mg/dL (5-40)
[2024-05-23 09:16] LABS: Vitamin D,25 Hydroxy 39.2 ng/mL
== END | disposition home or self-care (01) ==
LOC: LAB 07:29
PROVIDERS: PCP Internal Medicine; Referring Provider Internal Medicine; Visit Provider Internal Medicine
DX: E78.5 Hyperlipidemia, unspecified (principal); K21.9 Gastro-esophageal reflux disease without esophagitis; E03.9 Hypothyroidism, unspecified; E55.9 Vitamin D deficiency, unspecified; Z13.220 Encounter for screening for lipoid disorders
CPT/HCPCS: 36415; 80053; 80061; 82306; 84439; 84443; 84481; 85025

== ENCOUNTER 2024-06-02 08:30 | Outpatient (RCR) | payer MEDICARE, OTHER, SELFPAY ==
--- NOTE | 2024-04-05 09:07 | HP.PTEVAL ---
Patient's Visit Information Visit Information Visit Information: SHANKAR CHOW is a 79 year old M referred to Physical Therapy by Dr. Clarita Vogel MD with a diagnosis of L popliteal strain. Date of Evaluation: 04/05/24 Physical Therapist: Archie Maldonado, PT, ATC Visit Plan Frequency: 2-3x /Week Duration: 4-6 Weeks Plan: L LE strengthening, core stab ex's, balance and proprio, bike (retro), and HEP Subjective Subjective: Pt reports he started to feel L knee pain in December of this year. Pt notes he is an avid walker, and usually walks 6 miles every other day to stay in shape. Pt notes when this pain started, he stopped with his walking in hopes that that would help, but his L knee has only become worse. Pt notes he has had x-rays and an MRI of his L knee which showed he had tears in his meniscus. Pt reports he has stairs at home that he negotiates one step at a time. Pt also notes he has difficulty with car transfers and getting dressed at this time secondary to his knee not wanting to bend much secondary to pain. Pt also notes sleep difficulty at this time secondary to pain. 1/10 pain while sitting here at rest, 8/10 pain at worst (when I bend my leg the wrong way) Pain L knee: Pain Intensity (Out of 10): 1 Pain Intensity Range: 8 Objective Objective: Neuro: B LE sensation is WNL to light touch. B patellar reflex= 1/3 Palpation: Mild swelling noted in L knee joint line. No obvious deformity at this time. Girth at joint line: B knees are 37 cm ROM: R knee 0-5/115 degrees ; L knee 0-10-95 MMT: R knee flex= 37, ext= 66 #F; L knee flex= 34, ext= 40#F Balance/Special Test Scores Lower Extremity Functional Score: 31 Goals Goal 1:: Decrease L knee pain x 50% to aid with restoring pt's ability to go on walks again without limitation Goal Time Frame: 4-6 Weeks Goal 2:: Increase L knee flexion ROM x 10-15 degrees to aid with car transfers. Goal Time Frame: 4-6 Weeks Goal 3:: Increase L knee strength x 25 #F to aid with stair negotiation Goal Time Frame: 4-6 Weeks Goal 4:: I with HEP Goal Time Frame: 4-6 Weeks Rehabilitation Potential Physical Therapy Diagnosis: Pt has L knee pain, weakness, and limited ROM secondary to Degenerative changes in L knee Rehabilitation Potential: Good Anticipated Interventions Patient/Client Instruction: Educate patient on: Condition and Plan of Care For the Purpose of:: To improve self management Therapeutic Exercise to Include: Strength training, Balance training, Flexibilty training, Active ROM and Dynamic Lumbar Stabilization For the Purpose of:: To decrease pain, To increase ROM and To improve muscle performance and motor function Cryotherapy (ice pack, ice massage): Yes For the Purpose of:: To decrease pain Text: Thank you for the opportunity to evaluate your patient. For Medicare and Medicare HMO plans, please review the plan of care and approve it. It will need to be FAXED BACK to us at [phone] for Medicare purposes. For Medicare only, by signing this I certify the plan of care. Please let me know if there are questions or concerns regarding this plan of care. Physician Signature: Date:
--- NOTE | 2024-06-02 09:31 | HP.PTDCSUM ---
Discharge Summary D/C summary: It has been my pleasure to treat SHANKAR CHOW referred by Dr. Clarita Vogel MD, with the diagnosis of L popliteal strain for a total of 25 visit(s). Discharge Date: Please see the following information for a summary of their discharge status. Subjective Subjective: No pain at this time. Pt is ready to continue I Pain L knee: Pain Intensity (Out of 10): 0 Overall Improvement % Improvement: 98 Objective Objective/Function: L knee pain is 0/10 this date Pt is I with HEP and gym routine L knee ROM: 0-5-120 degrees L knee MMT: flex= 40, ext= 60 #F Goals Goal 1:: Decrease L knee pain x 50% to aid with restoring pt's ability to go on walks again without limitation Goal Progress: Goal Met Goal 2:: Increase L knee flexion ROM x 10-15 degrees to aid with car transfers. Goal Progress: Goal Met Goal 3:: Increase L knee strength x 25 #F to aid with stair negotiation Goal Progress: Goal Met Goal 4:: I with HEP Goal Progress: Goal Met Plan Plan: Discharge to HEP D/C Information d/c sentence: If there are questions or concerns regarding this patient's physical therapy, please feel free to call me at [phone]. Thank you for the referral of this patient. Sincerely, Archie Maldonado, PT, ATC Balance/Gait/Functional tests Balance/Special Test Scores Lower Extremity Functional Score: 60 Improvement % Improvement: 98
== END 2024-06-02 13:28 | disposition home or self-care (01) ==
LOC: PT 08:30
PROVIDERS: PCP Internal Medicine; Visit Provider Internal Medicine
DX: M70.52 Other bursitis of knee, left knee (principal)
CPT/HCPCS: 97110; 97161; 97530

== ENCOUNTER → 2024-11-20 | Outpatient (CLI) | payer MEDICARE, OTHER, SELFPAY ==
--- OUTSIDE RECORDS SUMMARY | 2024-11-20 07:27 | XMS RPT_ITS | CCD ---
Author Organization [facility] Care Team Providers Care Worksite Wellness Practitioner Name Role Phone Dr. Clarita Vogel Primary Care Provider Dr. Clarita Vogel Attending Provider [phone] Dr. Clarita Vogel Referring Provider 1([facility]) MOR Do Attending Provider Dr. Alberto Peoples Attending Provider 1([facility])[phone] Dr. Giles Olguin Attending Provider [phone] Dr. Clarita Vogel Primary Care Provider Dr. Clarita Vogel Attending Provider [phone] Dr. Clarita Vogel Primary Care Provider Dr. Alberto Peoples Attending Provider 1([facility])-[phone] Alberto Peoplse Referring Provider [phone] Dr. Alberto Peoples Other Provider Kecia ELECTRIC DRILL OPERATOR, ELECTRIC DRILL OPERATOR-C Joshua Diallo Attending Provider Dr. Clarita Vogel Primary Care Provider Dr. Alberto Peoples Attending Provider [phone] Alberto Peoples Referring Provider 1([facility])-[phone] Dr. Alberto Peoples Other Provider Kecia ELECTRIC DRILL OPERATOR, ELECTRIC DRILL OPERATOR-Mateus Diallo Attending Provider Dr. Clarita Vogel Referring Provider Vik GELLER, ELECTRIC DRILL OPERATOR-C Danielle Attending Provider Dr. Clarita Vogel Primary Care Provider Dr. Clarita Vogel Attending Provider MOR Lay Attending Provider Lela, Clarita Primary Care Unavailable LelaClarita Attending Unavailable BOLTJA, CH1 Referring Unavailable Lela, Clarita Primary Care Unavailable BOLTJA, CH1 Attending Unavailable BOLTJA, CH1 Referring Unavailable Lela, Clarita Primary Care Unavailable BOLTJA, CH1 Attending Unavailable Lela, Clarita Primary Care Unavailable LelaClarita Attending Unavailable Lela, Clarita Referring Unavailable BOLTJA, CH1 Referring Unavailable Lela, Clarita Primary Care Unavailable LelaClarita Attending Unavailable Lela, Clarita Primary Care Unavailable LelaClarita Attending Unavailable Lela, Clarita Referring Unavailable Lucinda, Elton Referring Unavailable Lela, Clarita Primary Care Unavailable Lucinda Elton Attending Unavailable Lela, Clarita Primary Care Unavailable Lela, Clarita Attending Unavailable Lela, Clarita Primary Care Unavailable LelaClarita Attending Unavailable Vik ELECTRIC DRILL OPERATOR, Danielle Attending Unavailable Lela, Clarita Primary Care Unavailable Lela, Clarita Referring Unavailable Vik GELLER, Danielle Attending Unavailable Lela, Clarita Referring Unavailable Lela, Clarita Primary Care Unavailable Lela, Clarita Primary Care Unavailable Clarita Vogel Attending Unavailable Allergies Allergy Classification Reported Allergen(s) Allergy Type Date of Onset Reaction(s) Facility (8 sources) ezetimibe Drug Allergy 1 [facility] (9 sources) Sulfonamides (Antibiotic); Translations: [Sulfa (Sulfonamide Antibiotics)] Propensity to adverse reactions 1 [facility] (1 source) ezetimibe Drug Allergy 5 [facility] Repository Medications Current Medications Medication Drug Class(es) Dates Sig (Normalized) Sig (Original) aspirin 81 mg delayed release oral tablet (8 sources) Platelet Aggregation Inhibitor, Nonsteroidal Anti-inflammatory Drug Start: 06-08-2017 take 81 mg by mouth once daily Aspirin Active 81 MG PO daily June 08, 2017 12:00am finasteride 5 mg oral tablet (8 sources) 5-alpha Reductase Inhibitor Start: 06-08-2017 take 5 mg by mouth once daily Finasteride Active 5 MG PO daily June 08, 2017 12:00am Multivitamin preparation (8 sources) Start: 06-08-2017 take 1 tablet by mouth once daily Multivitamin Active 1 TABLET PO daily June 08, 2017 8:21pm Start: 06-08-2017 take 1 tablet by arya th once daily Multivitamin Active 1 TABLET PO daily June 08, 2017 1:00am Start: 06-08-2017 take 1 tablet by arya th once daily Multivitamin Active 1 TABLET PO daily June 08, 2017 12:00am Completed/Discontinued Medications Medication Drug Class(es) Dates Sig (Normalized) Sig (Original) Antiarthritic Combination No.2 (Glucosamine-Chondro itin) 900 mg tablet (8 sources) Start: 06-08-2017 End: 06-13-2018 take 1 tablet by mouth once daily Antiarthritic Combination No.2 (Glucosamine-Chondr oitin) 900 mg tablet Discontinued 900 MG PO daily June 08, 2017 8:24pm June 13, 2018 9:38am Start: 06-08-2017 End: 06-13-2018 take 1 tablet by mouth once daily Antiarthritic Combination No.2 (Glucosamine-Chondroitin) 900 mg tablet Discontinued 900 MG PO daily June 08, 2017 1:00am June 13, 2018 9:38am Start: 06-08-2017 End: 06-13-2018 take 1 tablet by mouth once daily Antiarthritic Combination No.2 (Glucosamine-Chondroitin) 900 mg tablet Discontinued 900 MG PO daily June 08, 2017 12:00am June 13, 2018 8:38am atorvastatin 40 mg oral tablet (8 sources) HMG-CoA Reductase Inhibitor Start: 06-08-2017 End: 06-13-2018 take 40 mg by mouth once daily Atorvastatin Discontinued 40 MG PO daily June 08, 2017 12:00am June 13, 2018 8:37am cetirizine hydrochloride 10 mg oral tablet (16 sources) Histamine-1 Receptor Antagonist Start: 02-07-2020 End: 11-11-2021 take 10 mg by mouth once daily Cetirizine Discontinued 10 MG PO daily February 07, 2020 2:59pm November 11, 2021 7:08am Start: 06-08-2017 End: 02-07-2020 take 5 mg by mouth once daily Cetirizine Discontinued 5 MG PO daily June 08, 2017 12:00am February 07, 2020 2:59pm cholecalciferol 0.025 mg oral capsule (8 sources) Vitamin D Start: 06-09-2017 End: 06-13-2018 take 1000 [IU] by mouth once Cholecalciferol (Vitamin D3) Discontinued 1000 UNIT PO ONCE June 09, 2017 12:00am June 13, 2018 8:38am fluticasone propionate 0.05 mg/actuat metered dose nasal spray (20 sources) Corticosteroid Start: 06-08-2017 End: 04-08-2023 take 1 spray(s) nasal route once daily Fluticasone Propionate Discontinued 1 SPRAY INTRANASAL DAILY October 21, 2022 7:05am April 08, 2023 8:25am administer into each nostril levothyroxine sodium 0.025 mg oral tablet (20 sources) l-Thyroxine Start: 01-27-2021 End: 07-01-2022 take 25 ug by mouth once daily Levothyroxine Discontinued 25 MCG PO DAILY June 30, 2022 1:02pm July 01, 2022 9:11am Start: 06-08-2017 End: 01-27-2021 take 1 capsule by mouth once daily levothyroxine 25 mcg capsule Discontinued 25 MCG PO daily June 08, 2017 12:00am January 27, 2021 3:38pm pravastatin sodium 40 mg oral tablet (20 sources) HMG-CoA Reductase Inhibitor Start: 06-13-2018 End: 05-24-2023 take 40 mg by mouth once daily Pravastatin Discontinued 40 MG PO DAILY May 07, 2021 8:54am May 04, 2022 3:47pm sildenafil 100 mg oral tablet (20 sources) Phosphodiesterase 5 Inhibitor Start: 06-08-2017 End: 03-30-2023 take 1 tablet by mouth once Sildenafil (Viagra) 100 mg tablet Discontinued 100 MG PO ONCE October 12, 2022 3:05pm March 30, 2023 8:27am Problems Active Problems Problem Classification Problem Date Documented Date Episodic/Chronic Disorders of lipid metabolism (16 sources) Hyperlipidemia; Translations: [Hyperlipidemia, unspecified] Onset: 06-22-2024 Chronic Esophageal disorders (11 sources) Gastroesophageal reflux disease; Translations: [Gastro-esophageal reflux disease without esophagitis] 10-15-2020 Chronic Hyperplasia of prostate (7 sources) Benign prostatic hyperplasia; Translations: [Benign prostatic hyperplasia without lower urinary tract symptoms] 10-21-2022 Chronic Nonspecific chest pain (7 sources) Chest discomfort; Translations: [Other chest pain] 02-03-2023 Episodic Other acquired deformities (7 sources) Mallet finger; Translations: [Mallet finger of left finger(s)] 03-13-2022 Episodic Other acquired deformities (2 sources) Mallet finger of left finger(s); Translations: [Mallet finger] Episodic Other circulatory disease (5 sources) Respiratory crackles; Translations: [Other specified symptoms and signs involving the circulatory and respiratory systems] 10-21-2022 Episodic Other circulatory disease (3 sources) Other specified symptoms and signs involving the circulatory and respiratory systems; Translations: [Abnormal chest sounds] 10-21-2022 Episodic Other connective tissue disease (4 sources) Pain in left arm; Translations: [Pain in left arm] 02-03-2023 Episodic Other male genital disorders (7 sources) Scrotal mass; Translations: [Other specified disorders of the male genital organs] 02-25-2022 Episodic Other male genital disorders (1 source) Other specified disorders of the male genital organs; Translations: [Other specified disorders of male genital organs] Episodic Other non-epithelial cancer of skin (8 sources) History of malignant neoplasm of skin; Translations: [Personal history of other malignant neoplasm of skin] 10-15-2020 Episodic Other nutritional; endocrine; and metabolic disorders (8 sources) Weight loss; Translations: [Abnormal weight loss] 11-05-2020 Episodic Other skin disorders (7 sources) Skin lesion; Translations: [Disorder of the skin and subcutaneous tissue, unspecified] 04-09-2022 Episodic Other skin disorders (1 source) Disorder of the skin and subcutaneous tissue, unspecified; Translations: [Unspecified disorder of skin and subcutaneous tissue] Episodic Other upper respiratory disease (8 sources) Seasonal allergy; Translations: [Other seasonal allergic rhinitis] 10-15-2020 Chronic Residual codes; unclassified (5 sources) H/O: asbestos exposure; Translations: [Contact with and (suspected) exposure to asbestos] 10-21-2022 Episodic Residual codes; unclassified (3 sources) Contact with and (suspected) exposure to asbestos; Translations: [Personal history of contact with and (suspected) exposure to asbestos] 10-21-2022 Episodic Sprains and strains (4 sources) Sprain of ankle; Translations: [Sprain of unspecified ligament of left ankle, initial encounter] 05-17-2023 Episodic Superficial injury; contusion (8 sources) Contusion of hand; Translations: [Contusion of left hand, initial encounter] Episodic Syncope (20 sources) Vasovagal syncope; Translations: [Syncope and collapse] Episodic Thyroid disorders (14 sources) Hypothyroidism; Translations: [Hypothyroidism, unspecified] Onset: 05-29-2024 Chronic Past or Other Problems Problem Classification Problem Date Documented Da te Episodic/Chronic Other connective tissue disease (1 source) Other bursitis of knee, unspecified knee; Translations: [Other bursitis of knee, unspecified knee] Onset: 06-02-2024 Episodic Other non-traumatic joint disorders (1 source) Pain in right knee; Translations: [Pain in right knee] Onset: 03-08-2024 Episodic Other screening for suspected conditions (not mental disorders or infectious disease) (4 sources) Patient encounter status; Translations: [Encounter for screening for malignant neoplasm of colon] Onset: 02-29-2024 04-21-2023 Episodic Results Test Name Value Interpretation Reference Range Facility Cardiology Visit Reporton Cardiology Visit Report [facility] [address] [place] [address] OFFICE VISIT Date of Service: 10/05/24 MR#: [id number] Acct: [id number] Name: SHANKAR CHOW Rep #: [id number] : 1945 Provider: TYLER franco Age/Sex: 79/M Location: [facility] [place], [place].[facility] Status: Signed HPI HPI History of Present Illness Details: This is a 79-year-old white male who presents today for outpatient cardiovascular follow-up visit. He has a history of vasovagal/neurocardi ogenic mediated near syncope/syncope superimposed upon hyperlipidemia. From a cardiac standpoint, the patient is doing well. He denies any palpitations, chest pain, pressure or heaviness. He denies SOB, Orthopnea, and PND. He does not have bleeding issues; no blood in urine, stool or nosebleeds. He denies any decrease in energy level, myalgias, or claudication. He does not have edema, or sudden weight gain. He denies dizziness, lightheadedness, syncopal or near syncopal episodes, and headaches. Intake Vital Signs 10/07/23 08:51 10/05/24 07:42 Height 5 ft 9 in 5 ft 9 in Weight: 186 lb BMI 27.4 BP 122/75 H Blood Pressure Location Lt brachial Position Sitting Respiration 18 Pulse 52 L Pulse Source Monitor Pulse Oximetry (%) 99 Intake Visit Reasons: 1 Y FU Oim Consultant Required: No Is patient in pain?: No Allergies ezetimibe (From Zetia) Adverse Reaction (Intermediate, Verified 10/05/24 10:37) unknown Sulfa (Sulfonamide Antibiotics) Adverse Reaction (Intermediate, Verified 10/05/24 10:37) [email or web address] Medications ???Medication ???Instructions ???Recorded ???Confirmed ???Type aspirin 81 mg tablet,delayed 81 mg PO QDAY 06/08/17 10/05/24 Hi story release finasteride 5 mg tablet 5 mg PO QDAY 06/08/17 10/05/24 His tory multivitamin 1 tab PO QDAY 06/08/17 10/05/24 Hi story levothyroxine 50 mcg tablet 50 mcg PO DAILY #90 tabs 12/02/23 10/05/24 Rx pravastatin 40 mg tablet 40 mg PO DAILY #90 tabs 05/29/24 0 10/05/24 Rx naproxen sodium 220 mg tablet 220 mg PO Q12H PRN 07/03/24 History (Aleve) sildenafil 100 mg tablet (Viagra) 100 mg PO ONCE PRN sexual activit y 09/06/24 10/05/24 Rx #20 tabs Ejection fraction %: 65 Have you fallen in the past year?: No PFSH Medical History Carpal tunnel syndrome of right wrist Popliteal bursitis Encounter for colonoscopy following colon polyp removal Left ankle sprain COVID Weight loss Hypothyroidism History of skin cancer Seasonal allergies GERD (gastroesophageal reflux disease) Vasovagal syncope Syncope Hypothyroidism Hyperlipidemia BPH (benign prostatic hyperplasia) Family History Father CAD (coronary artery disease) Pacemaker Heart valve disease Liver disease Mother CAD (coronary artery disease) Hx of CABG Grandmother Breast cancer Sister Cancer Social History Smoking Status: Former smoker quit date: 06/07/79 Tobacco: How many years used: 18 alcohol intake: current alcohol intake frequency: holidays/special occasions only substance use type: does not use what type of physical activity do you participate in: walking frequency: 3-4 times per week ROS Const Const: Negative for fatigue, weakness, headache(s) or frequent falls Eyes Eyes: Negative for blurry vision ENT ENT: Negative for headache(s), dizziness or Nosebleed/epistaxis Cardio Chest Pain: No Palpitations: No Edema: None Muscle aches with walking: None Resp Respiratory: Negative for SOB with activity, SOB at rest or SOB orthopnea SOB lying down GI GI: Negative nausea, vomiting, heartburn, bright, red blood in stools or black,tarry stools : Negative for hematuria Neuro Neuro: Negative for dizziness, lightheadedness, near syncope, syncope, frequent falls, headache(s), weakness or blurry vision Endo Endo: Negative for fatigue Cardiology Exam Const Appearance: cooperative, healthy appearing, comfortable, no acute distress, well developed and well groomed Nutritional Appearance: average body habitus, well nourished and overweight Head Head: normal to inspection, normocephalic and atraumatic Ears: hearing grossly normal bilaterally Nose: external nose normal Face and Sinus: face symmetric Eyes Eyelids: eyelids normal Conjunctivae: conjunctivae normal Pupils: PERRL EOM: EOM intact bilaterally Neck Neck: normal visual inspection and full ROM Carotids: normal carotid upstroke Chest Chest inspection: normal inspection of the chest, symmetric chest movement and normal respiratory effort Auscultation: Bilateral: Clear to Auscultation Cardio Palpation: normal PMI Rat (more content not included)... Normal [facility] MR/BMS.[place]ina 07-03-2024 MR/BMS.IMCony [facility] [address] [place] [address] OFFICE VISIT Date of Service: 07/03/24 MR#: [id number] Acct: [id number] Name: SHANKAR CHOW Rep #: [id number] : 1945 Provider: Dr. Clarita suarez MD Age/Sex: 79/M Location: [facility] [place] [place] Status: Signed Intake Vital Signs 05/29/24 08:04 07/03/24 08:19 07/03/24 11:12 Height 5 ft 9 in 5 ft 9 in 5 ft 9 in Weight: 186 lb 2 oz 187 lb BMI 27.4 27.6 BP 106/66 143/71 H Blood Pressure Location Lt brachial Lt brachial Position Sitting Sitting Respiration 16 16 Pulse 65 53 L Pulse Source Monitor Monitor Temp 97.8 F 98.4 F Temp Source Temporal Temporal Pulse Oximetry (%) 97 97 Oxygen Delivery Method room air room air Intake Visit Reasons: Rt Hand Pain Chief Complaint: R hand pain Oim Consultant Required: No Accompanied by: Self Is patient in pain?: Yes (R hand) Pain scale (1-10): 1 Allergies ezetimibe (From Zetia) Adverse Reaction (Intermediate, Verified 07/03/24 10:22) unknown Sulfa (Sulfonamide Antibiotics) Adverse Reaction (Intermediate, Verified 07/03/24 10:22) [email or web address] Medications ???Medication ???Instructions ???Recorded ???Confirmed ???Type aspirin 81 mg tablet,delayed 81 mg PO QDAY 06/08/17 07/03/24 History release finasteride 5 mg tablet 5 mg PO QDAY 06/08/17 07/03/24 History multivitamin 1 tab PO QDAY 06/08/17 07/03/24 History sildenafil 100 mg tablet (Viagra) 100 mg PO ONCE PRN sexual activity 09/01/23 07/03/24 Rx #20 tabs levothyroxine 50 mcg tablet 50 mcg PO DAILY #90 tabs 12/02/23 07/03/24 Rx pravastatin 40 mg tablet 40 mg PO DAILY #90 tabs 05/29/24 07/03/24 Rx naproxen sodium 220 mg tablet 220 mg PO Q12H PRN 07/03/24 07/03/24 History (Aleve) Have you fallen in the past year?: No PFSH Medical History (Updated 07/03/24 @ 12:[address] Clarita Vogel MD) Carpal tunnel syndrome of right wrist Popliteal bursitis Encounter for colonoscopy following colon polyp removal Left ankle sprain COVID Weight loss Hypothyroidism History of skin cancer Seasonal allergies GERD (gastroesophageal reflux disease) Vasovagal syncope Syncope Hypothyroidism Hyperlipidemia BPH (benign prostatic hyperplasia) Family History Father CAD (coronary artery disease) Pacemaker Heart valve disease Liver disease Mother CAD (coronary artery disease) Hx of CABG Grandmother Breast cancer Sister Cancer Social History Smoking Status: Former smoker quit date: 06/07/79 Tobacco: How many years used: 18 alcohol intake: current alcohol intake frequency: holidays/special occasions only substance use type: does not use what type of physical activity do you participate in: walking frequency: 3-4 times per week HPI HPI Chief Complaint: R hand pain Details: SHANKAR CHOW, is a 79 M who presents to the office today for an acute care follow-up visit. Over the last approximately 10 to 14 days, he has been having pain in the right hand that radiates somewhat up to the volar aspect of the arm. This initially began basically at nighttime. He would wake with some discomfort, tingling. When we get into the more specifics, it is clearly in the first 3 digits, palmar surface. He describes it as shooting pains, some tingling. He was able to get up, move around and shake it out and go back to bed. Over the last couple of nights it is actually intensified quite a bit more, interrupting sleep. He has been trying to sleep largely on his back, making sure he is not bending his wrist at night. When he woke up this morning still actually had some of the tingling sensation into the morning but gradually has faded. He noted a bit of it when he was using and bending his wrist this morning driving. He has been trying to again sleep on his back. Laying on the left side seems to make it a lot worse he states. Aleve did not help. He has not had longstanding symptoms of numbness tingling, pain but this is more of a acute to subacute presentation. Remotely had wrist fracture right. Also broke some fingers in the right hand remotely. Review of systems per chart. Physical exam. Vital signs on chart. My exam is focused. He has good radial pulse. Skin is warm and dry. No obvious rashes in the forearm or hand or wrist. Tinel and Phalen test perhaps borderline. However no significant worsening of symptoms with either. Percussion over the wrist reproduces some of the discomfort. Otherwise no significant other abnormal findings. Palpation exiting nerve roots in the neck does not reproduce any of his discomfort in any way. He has no other specific pain, numbness or tingling going down the arm. ROS Const Constitutional: No body ache, chills, exces (more content not included)... Normal [facility] PT D/C Summary (1)on 024 PT D/C Summary (1) [facility] [address] [place] [address] / REHABILITATION SERVICES DISCHARGE SUMMARY MR#: [id number] Acct: [id number] Name: SHANKAR CHOW Rep #: [id number] : 1945 79 From: Archie Maldonado PT, ATC Referring Dr.: Dr. Clarita Vogel MD Status: R EG RCR Insurance: MEDICARE PART A B WPS Pretty Padded Room Discharge Summary D/C summary: It has been my pleasure to treat SHANKAR CHOW referred by Dr. Clarita Vogel MD, with the diagnosis of L popliteal strain for a total of 25 visit(s). Discharge Date: Please see the following information for a summary of their discharge status. Subjective Subjective: No pain at this time. Pt is ready to continue I Pain L knee: Pain Intensity (Out of 10): 0 Overall Improvement % Improvement: 98 Objective Objective/Function: L knee pain is 0/10 this date Pt is I with HEP and gym routine L knee ROM: 0-5-120 degrees L knee MMT: flex= 40, ext= 60 #F Goals Goal 1:: Decrease L knee pain x 50% to aid with restoring pt's ability to go on walks again without limitation Goal Progress: Goal Met Goal 2:: Increase L knee flexion ROM x 10-15 degrees to aid with car transfers. Goal Progress: Goal Met Goal 3:: Increase L knee strength x 25 #F to aid with stair negotiation Goal Progress: Goal Met Goal 4:: I with HEP Goal Progress: Goal Met Plan Plan: Discharge to HEP D/C Information d/c sentence: If there are questions or concerns regarding this patient's physical therapy, please feel free to call me at [phone]. Thank you for the referral of this patient. Sincerely, Archie Maldonado, PT, ATC Balance/Gait/Functio nal tests Balance/Special Test Scores Lower Extremity Functional Score: 60 Improvement % Improvement: 98 06/02/24 0931 CC: Dr. Clarita Vogel MD; Clarita Vogel [facility] Signed Normal [facility] MR/BMS.IMBon 05-29-2024 MR/BMS.IMB [facility] [address] [place] [address] OFFICE VISIT Date of Service: 05/29/24 MR#: [id number] Acct: [id number] Name: SHANKAR CHOW Rep #: [id number] : 1945 Provider: Dr. Clarita suarez MD Age/Sex: 79/M Location: [facility] Status: Signed Intake Vital Signs 11/29/23 08:26 03/29/24 09:30 05/29/24 08:04 Height 5 ft 9 in 5 ft 9 in 5 ft 9 in Weight: 186 lb 2 oz BMI 27.4 BP 106/66 Blood Pressure Location Lt brachial Position Sitting Respiration 16 Pulse 65 Pulse Source Monitor Temp 97.8 F Temp Source Temporal Pulse Oximetry (%) 97 Oxygen Delivery Method room air Intake Visit Reasons: 6 mo checkup Chief Complaint: 6 m fu Oim Consultant Required: No Accompanied by: Self Is patient in pain?: Yes (L knee pain) Pain scale (1-10): 1 Allergies ezetimibe (From Zetia) Adverse Reaction (Intermediate, Verified 05/29/24 07:57) unknown Sulfa (Sulfonamide Antibiotics) Adverse Reaction (Intermediate, Verified 05/29/24 07:57) [email or web address] Medications ???Medication ???Instructions ???Recorded ???Confirmed ???Type aspirin 81 mg tablet,delayed 81 mg PO QDAY 06/08/17 05/29/24 History release finasteride 5 mg tablet 5 mg PO QDAY 06/08/17 05/29/24 History multivitamin 1 tab PO QDAY 06/08/17 05/29/24 History sildenafil 100 mg tablet (Viagra) 100 mg PO ONCE PRN sexual activity 09/01/23 05/29/24 Rx #20 tabs levothyroxine 50 mcg tablet 50 mcg PO DAILY #90 tabs 12/02/23 05/29/24 Rx pravastatin 40 mg tablet 40 mg PO DAILY #90 tabs 05/29/24 05/29/24 Rx Have you fallen in the past year?: Yes (05/2024, slipped down the steps) [facility] Medical History Popliteal bursitis Encounter for colonoscopy following colon polyp removal Left ankle sprain COVID Weight loss Hypothyroidism History of skin cancer Seasonal allergies GERD (gastroesophageal reflux disease) Vasovagal syncope Syncope Hypothyroidism Hyperlipidemia BPH (benign prostatic hyperplasia) Family History Father CAD (coronary artery disease) Pacemaker Heart valve disease Liver disease Mother CAD (coronary artery disease) Hx of CABG Grandmother Breast cancer Sister Cancer Social History Smoking Status: Former smoker quit date: 06/07/79 Tobacco: How many years used: 18 alcohol intake: current alcohol intake frequency: holidays/special occasions only substance use type: does not use what type of physical activity do you participate in: walking frequency: 3-4 times per week HPI HPI Chief Complaint: 6 m fu Details: SHANKAR CHOW, is a 79 M who presents to the office today for 6-month follow-up. 79-year-old gentleman who has a history of hyperlipidemia on pravastatin for primary prevention. 40 mg daily. No issues. Needs refill on medication. He has hypothyroidism, levothyroxine 50 mcg daily. Labs are obtained recently, reviewed. Thyroid hormones all normal ranges. BPH on finasteride, following with urology. Likewise Viagra as needed and he also takes baby aspirin and a multivitamin. Overall he seems to be doing well. He has no new issues or concerns. He has been in physical therapy for what seemed to be left popliteal bursitis. Still having a little discomfort with full hyperflexion actively but not passively states. He does have some small undersurface tears, medial and lateral meniscus however I do not think that this is an issue right now. Review of systems per chart. Physical exam. Vital signs on chart. PERRLA. Sclera are clear. TMs are unremarkable with normal light reflexes. Canals are unremarkable. Posterior pharynx is unremarkable. Good dentition. No cervical or supraclavicular lymph nodes enlarged or tender. No clear thyromegaly. No thyroid nodules readily palpable. Lungs are without wheeze, rhonchi, rales. No E/A changes are heard. Heart is regular. Not tachycardic. No clear murmur, rub, or gallop is identified. The abdomen is soft. Bowel sounds are present. Nontender nondistended abdomen. No clear palpable masses in the abdomen. No significant leg edema. Cranial nerve examination 2 through 12 are grossly unremarkable nonlateralizing. Left knee, no obvious joint effusion. No significant tenderness in the left popliteal fossa. No discomfort, with medial and lateral compartment stress with extension. No crepitus in the knee. ROS Const Constitutional: No body ache, chills, excessive sweating, fatigue, fever(s), frequent falls, headache(s), snoring, weakness or change in appetite Eyes Eyes: No blurry vision, change in vision, eye pain or Light sensitivity ENT ENT: No abnormal hearing, ear or mastoid pain, tinnitus, nasal congestion, head (more content not included)... Normal [facility] CBC W/Diff, Automatedon 12- Absolute Lymph 1.89 X10 3/uL Normal 0.83-4.51 [facility] Comment on above: Performed By: #### L 500.4100, L506.0400, L100.0100, L501.08268, L501.9520, L506.1000, L500.4050 ####[facility] [address] [place], [place], [id number] Absolute Neut 3.2 X10 3/uL Normal 2.0-7.7 [facility] Comment on above: Performed By: #### L 500.4100, L506.0400, L100.0100, L501.19681, L501.9520, L506.1000, L500.4050 ####[facility] [address] [place], [address] Basophils/100 WBC (Bld) 1.1 % High 0-[address] [facility] Comment on above: Performed By: #### L 500.4100, L506.0400, L100.0100, L501.34161, L501.9520, L506.1000, L500.4050 ####[facility] [address] [place], [address] Eosinophils/100 WBC (Bld) 7.8 % High 0-5 [facility] Comment on above: Performed By: #### L 500.4100, L506.0400, L100.0100, L501.38048, L501.9520, L506.1000, L500.4050 ####[facility] [address] [place], [address] Erythrocyte distribution width (RBC) [Ratio] 12.6 % Normal 11.6-14.6 [facility] Comment on above: Performed By: #### L 500.4100, L506.0400, L100.0100, L501.15791, L501.9520, L506.1000, L500.4050 ####[facility] [address] [place], [address] Hematocrit (Bld) [Volume fraction] 41.7 % Normal 40-54 [facility] Comment on above: Performed By: #### L 500.4100, L506.0400, L100.0100, L501.42992, L501.9520, L506.1000, L500.4050 ####[facility] [address] [place], [address] Hemoglobin (Bld) [Mass/Vol] 14.4 g/dL Normal 13.0-16.5 [facility] Comment on above: Performed By: #### L 500.4100, L506.0400, L100.0100, L501.86877, L501.9520, L506.1000, L500.4050 ####[facility] [address] [place], [address] IG% 0.500 Normal 0.0-0.9 [facility] Comment on above: Result Comment: IG% - Immature Granulocytes (promyelocytes, myelocytes and metamyelocytes) > 1% indicates that a LEFT SHIFT is Present. Performed By: #### L 500.4100, L506.0400, L100.0100, L501.33918, L501.9520, L506.1000, L500.4050 ####[facility] [address] [place], [address] Lymphocytes/100 WBC (Bld) 30.0 % Normal 19-41 [facility] Comment on above: Performed By: #### L 500.4100, L506.0400, L100.0100, L501.97760, L501.9520, L506.1000, L500.4050 ####[facility] [address] [place], [address] MCH (RBC) [Entitic mass] 32.1 pg High 27.0-32.0 [facility] Comment on above: Performed By: #### L 500.4100, L506.0400, L100.0100, L501.25393, L501.9520, L506.1000, L500.4050 ####[facility] [address] [place], [address] MCHC (RBC) [Mass/Vol] 34.5 g/dL Normal 32-36 [facility] Comment on above: Performed By: #### L 500.4100, L506.0400, L100.0100, L501.63897, L501.9520, L506.1000, L500.4050 ####[facility] [address] [place], [address] MCV (RBC) [Entitic vol] 93.1 fL Normal 80-[address] [facility] Comment on above: Performed By: #### L 500.4100, L506.0400, L100.0100, L501.75834, L501.9520, L506.1000, L500.4050 ####[facility] [address] [place], [address] Monocytes/100 WBC (Bld) 9.5 % Normal 0-[address] [facility] Comment on above: Performed By: #### L 500.4100, L506.0400, L100.0100, L501.50799, L501.9520, L506.1000, L500.4050 ####[facility] [address] [place], [address] Neutrophils/100 WBC (Bld) 51.1 % Normal 47-70 [facility] Comment on above: Performed By: #### L 500.4100, L506.0400, L100.0100, L501.43164, L501.9520, L506.1000, L500.4050 ####[facility] [address] [place], [address] Nucleated RBC (Bld) [#/Vol] 0 10*3/uL Normal 0-5 [facility] Comment on above: Performed By: #### L 500.4100, L506.0400, L100.0100, L501.84408, L501.9520, L506.1000, L500.4050 ####[facility] [address] [place], [address] Platelet mean volume (Bld) [Entitic vol] 9.2 fL Normal 6.2-12.0 [facility] Comment on above: Performed By: #### L 500.4100, L506.0400, L100.0100, L501.69124, L501.9520, L506.1000, L500.4050 ####[facility] [address] [place], [address] Platelets (Bld) [#/Vol] 252 10*3/uL Normal 150-450 [facility] Comment on above: Performed By: #### L 500.4100, L506.0400, L100.0100, L501.97129, L501.9520, L506.1000, L500.4050 ####[facility] [address] [place], [address] RBC (Bld) [#/Vol] 4.48 10*6/uL Low 4.6-6.2 [facility] Comment on above: Performed By: #### L 500.4100, L506.0400, L100.0100, L501.78868, L501.9520, L506.1000, L500.4050 ####[facility] [address] [place], [address] RDW SD 43.1 fl Normal 35.1-43.9 [facility] Comment on above: Performed By: #### L 500.4100, L506.0400, L100.0100, L501.12260, L501.9520, L506.1000, L500.4050 ####[facility] [address] [place], [address] WBC (Bld) [#/Vol] 6.3 10*3/uL Normal 4.4-11.0 [facility] Comment on above: Performed By: #### L 500.4100, L506.0400, L100.0100, L501.27706, L501.9520, L506.1000, L500.4050 ####[facility] [address] [place], [address] Comprehensive Metabolic Prof ncarabella 05-23-2024 Albumin [Mass/Vol] 3.6 g/dL Normal 3.2-5.0 [facility] Comment on above: Performed By: #### L 500.4100, L506.0400, L100.0100, L501.12861, L501.9520, L506.1000, L500.4050 ####[facility] [address] [place], [address] Albumin/Globulin [Mass ratio] 1.0 {ratio} Normal 0.9-2.4 [facility] Comment on above: Performed By: #### L 500.4100, L506.0400, L100.0100, L501.09014, L501.9520, L506.1000, L500.4050 ####[facility] [address] [place], [address] ALK P 74 U/L Normal 45-117 [facility] Comment on above: Performed By: #### L 500.4100, L506.0400, L100.0100, L501.41082, L501.9520, L506.1000, L500.4050 ####[facility] [address] [place], [address] ALT [Catalytic activity/Vol] 28 U/L Normal 16-61 [facility] Comment on above: Performed By: #### L 500.4100, L506.0400, L100.0100, L501.44417, L501.9520, L506.1000, L500.4050 ####[facility] [address] [place], [address] AST [Catalytic activity/Vol] 20 U/L Normal 15-37 [facility] Comment on above: Performed By: #### L 500.4100, L506.0400, L100.0100, L501.22380, L501.9520, L506.1000, L500.4050 ####[facility] [address] [place], [address] Bilirubin [Mass/Vol] 1.10 mg/dL High 0.20-1.[address] [facility] Comment on above: Result Comment: For patients on eltrombopag therapy, use of Dimension [place] TBIL is not recommended. Performed By: #### L 500.4100, L506.0400, L100.0100, L501.31274, L501.9520, L506.1000, L500.4050 ####[facility] [address] [place], [address] BUN/CRE 14.1 RATIO Normal 10-20 [facility] Comment on above: Performed By: #### L 500.4100, L506.0400, L100.0100, L501.39939, L501.9520, L506.1000, L500.4050 ####[facility] [address] [place], [address] CA,Total 9.1 mg/dL Normal 8.5-10.1 [facility] Comment on above: Performed By: #### L 500.4100, L506.0400, L100.0100, L501.49098, L501.9520, L506.1000, L500.4050 ####[facility] [address] [place], [address] Chloride [Moles/Vol] 106 mmol/L Normal 98-[address] [facility] Comment on above: Performed By: #### L 500.4100, L506.0400, L100.0100, L501.12703, L501.9520, L506.1000, L500.4050 ####[facility] [address] [place], [address] CO2 [Moles/Vol] 28.0 mmol/L Normal 21.0-32.0 [facility] Comment on above: Performed By: #### L 500.4100, L506.0400, L100.0100, L501.69352, L501.9520, L506.1000, L500.4050 ####[facility] [address] [place], [place], [phone] Creatinine [Mass/Vol] 0.99 mg/dL Normal 0.70-1.30 [facility] Comment on above: Result Comment: The validity of the calculated GFR GFRAA in patients over 70 years has not been determined. Clinical correlation is essential. Performed By: #### L 500.4100, L506.0400, L100.0100, L501.18802, L501.9520, L506.1000, L500.4050 ####[facility] [address] [place], [place], [phone] EST GFR - AA 94 mL/min Normal >60 [facility] Comment on above: Result Comment: Afri can Greek GFR Calc Performed By: #### L 500.4100, L506.0400, L100.0100, L501.62076, L501.9520, L506.1000, L500.4050 ####[facility] [address] [place], [place], [phone] GAP 4 Low 5-15 [facility] Comment on above: Performed By: #### L 500.4100, L506.0400, L100.0100, L501.97721, L501.9520, L506.1000, L500.4050 ####[facility] [address] [place], [place], [phone] GFR/1.73 sq M.predicted among non-blacks MDRD (S/P/Bld) [Vol rate/Area] 78 mL/min/{1.73_m2} Normal >60 [facility] Comment on above: Result Comment: Non- GFR Calc Performed By: #### L 500.4100, L506.0400, L100.0100, L501.17939, L501.9520, L506.1000, L500.4050 ####[facility] [address] [place], [address] Globulin (S) [Mass/Vol] 3.7 g/dL Normal 2.2-4.2 [facility] Comment on above: Performed By: #### L 500.4100, L506.0400, L100.0100, L501.93119, L501.9520, L506.1000, L500.4050 ####[facility] [address] [place], [address] Glucose [Mass/Vol] 97 mg/dL Normal 74-106 [facility] Comment on above: Performed By: #### L 500.4100, L506.0400, L100.0100, L501.00655, L501.9520, L506.1000, L500.4050 ####[facility] [address] [place], [address] Potassium [Moles/Vol] 3.9 mmol/L Normal 3.5-5.1 [facility] Comment on above: Performed By: #### L 500.4100, L506.0400, L100.0100, L501.23800, L501.9520, L506.1000, L500.4050 ####[facility] [address] [place], [address] Sodium [Moles/Vol] 139 mmol/L Normal 136-145 [facility] Comment on above: Performed By: #### L 500.4100, L506.0400, L100.0100, L501.38459, L501.9520, L506.1000, L500.4050 ####[facility] [address] [place], [address] T PROT 7.3 g/dL Normal 6.4-8.2 [facility] Comment on above: Performed By: #### L 500.4100, L506.0400, L100.0100, L501.62454, L501.9520, L506.1000, L500.4050 ####[facility] [address] [place], [address] Urea nitrogen [Mass/Vol] 14 mg/dL Normal 7-18 [facility] Comment on above: Performed By: #### L 500.4100, L506.0400, L100.0100, L501.62888, L501.9520, L506.1000, L500.4050 ####[facility] [address] [place], [address] Free T3on 05-23-2024 Free T3 [Mass/Vol] 2.6 pg/mL Normal 2.18-3.98 [facility] Comment on above: Performed By: #### L 500.4100, L506.0400, L100.0100, L501.28986, L501.9520, L506.1000, L500.4050 ####[facility] [address] [place], [address] Lipid Profileon 05-23-2024 Cholesterol [Mass/Vol] 154 mg/dL Normal 200 [facility] Comment on above: Result Comment: <200 mg/dL Desirable 200-240 mg/dL Borderline >240 mg/dL High Risk Performed By: #### L 500.4100, L506.0400, L100.0100, L501.14823, L501.9520, L506.1000, L500.4050 ####[facility] [address] [place], [address] Cholesterol in HDL [Mass/Vol] 76 mg/dL Normal [facility] Comment on above: Result Comment: The drugs N-Acetylcysteine and Metamizole may falsely depress this assay. Reference Range HDL <40 mg/dL Low HDL Cholesterol HDL >or= 60 mg/dL High HDL Cholesterol Performed By: #### L 500.4100, L506.0400, L100.0100, L501.49506, L501.9520, L506.1000, L500.4050 ####[facility] [address] [place], [address] Cholesterol in LDL [Mass/Vol] 64 mg/dL Normal 0-130 [facility] Comment on above: Performed By: #### L 500.4100, L506.0400, L100.0100, L501.08366, L501.9520, L506.1000, L500.4050 ####[facility] [address] [place], [address] Cholesterol in VLDL [Mass/Vol] 14 mg/dL Normal 5-40 [facility] Comment on above: Performed By: #### L 500.4100, L506.0400, L100.0100, L501.44826, L501.9520, L506.1000, L500.4050 ####[facility] [address] [place], [address] Triglyceride [Mass/Vol] 69 mg/dL Normal [facility] Comment on above: Result Comment: The drugs N-Acetylcysteine and Metamizole may falsely depress this assay. Serum Triglycerides Reference Interval Normal <150 mg/dL Borderline high 150 - 199 mg/dL High 200 - 499 mg/dL Very High > or = 500 mg/dL Performed By: #### L 500.4100, L506.0400, L100.0100, L501.99564, L501.9520, L506.1000, L500.4050 ####[facility] [address] [place], [address] T4 Free Directon 05-23-2024 T4 FREE DIRECT 1.09 ng/dL Normal 0.76-1.46 [facility] Comment on above: Performed By: #### L 500.4100, L506.0400, L100.0100, L501.27391, L501.9520, L506.1000, L500.4050 ####[facility] [address] [place], [address] Thyroid Stim Hormone (TSH)on 05-23-2024 TSH 2.180 uIU/mL Normal 0.358-3.740 [facility] Comment on above: Performed By: #### L 500.4100, L506.0400, L100.0100, L501.25516, L501.9520, L506.1000, L500.4050 ####[facility] [address] [place], [address] Vitamin D,25 Hydroxyon 05-23 Vitamin D 25-OH 39.2 ng/mL Normal [facility] Comment on above: Result Comment: Xin min D 25(OH) Status Range Deficiency <20 ng/mL (50nmol/L) Insufficiency 20 - 30 ng/mL (50 - 75 nmol/L) Sufficiency 30 - 100 ng/mL (75 - 250 nmol/L) Toxicity >100 ng/mL (>250 nmol/L) Performed By: #### L 500.4100, L506.0400, L100.0100, L501.70375, L501.9520, L506.1000, L500.4050 ####[facility] [address] [place], [address] PSA,Total- Diagnosticon 11-0 PSA, DIAGNOSTIC 3.29 ng/mL Normal 0.0-4.0 [facility] Comment on above: Result Comment: This test was performed using the TPSA assay method for the MetaStat chemistry system. Values obtained with different assay methods cannot be used interchangably. When changing PSA assays in the course of monitoring a patient, additional sequential testing should be carried out to confirm baseline values. Performed By: #### L 501.9940 ####[facility] [address] [place], [id number] Inital Evaluation (1) - PTon 04-05-2024 Inital Evaluation (1) - PT [facility] [address] [place] [address] / REHABILITATION SERVICES INITIAL EVALUATION MR#: [id number] Acct: [id number] Name: SHANKAR CHOW Rep #: [id number] : 1945 79 From: Archie Maldonado PT, ATC Referring Dr.: Dr. Clarita Vogel MD Status: R EG RCR Insurance: MEDICARE PART A B [employer] Patient's Visit Information Visit Information Visit Information: SHANKAR CHOW is a 79 year old M referred to Physical Therapy by Dr. Clarita Vogel MD with a diagnosis of L popliteal strain. Date of Evaluation: 04/05/24 Physical Therapist: Archie Maldonado, PT, ATC Visit Plan Frequency: 2-3x /Week Duration: 4-6 Weeks Plan: L LE strengthening, core stab ex's, balance and proprio, bike (retro), and HEP Subjective Subjective: Pt reports he started to feel L knee pain in December of this year. Pt notes he is an avid walker, and usually walks 6 miles every other day to stay in shape. Pt notes when this pain started, he stopped with his walking in hopes that that would help, but his L knee has only become worse. Pt notes he has had x-rays and an MRI of his L knee which showed he had tears in his meniscus. Pt reports he has stairs at home that he negotiates one step at a time. Pt also notes he has difficulty with car transfers and getting dressed at this time secondary to his knee not wanting to bend much secondary to pain. Pt also notes sleep difficulty at this time secondary to pain. 1/10 pain while sitting here at rest, 8/10 pain at worst (when I bend my leg the wrong way) Pain L knee: Pain Intensity (Out of 10): 1 Pain Intensity Range: 8 Objective Objective: Neuro: B LE sensation is WNL to light touch. B patellar reflex= 1/3 Palpation: Mild swelling noted in L knee joint line. No obvious deformity at this time. Girth at joint line: B knees are 37 cm ROM: R knee 0-5/115 degrees ; L knee 0-10-95 MMT: R knee flex= 37, ext= 66 #F; L knee flex= 34, ext= 40#F Balance/Special Test Scores Lower Extremity Functional Score: 31 Goals Goal 1:: Decrease L knee pain x 50% to aid with restoring pt's ability to go on walks again without limitation Goal Time Frame: 4-6 Weeks Goal 2:: Increase L knee flexion ROM x 10-15 degrees to aid with car transfers. Goal Time Frame: 4-6 Weeks Goal 3:: Increase L knee strength x 25 #F to aid with stair negotiation Goal Time Frame: 4-6 Weeks Goal 4:: I with HEP Goal Time Frame: 4-6 Weeks Rehabilitation Potential Physical Therapy Diagnosis: Pt has L knee pain, weakness, and limited ROM secondary to Degenerative changes in L knee Rehabilitation Potential: Good Anticipated Interventions Patient/Client Instruction: Educate patient on: Condition and Plan of Care For the Purpose of:: To improve self management Therapeutic Exercise to Include: Strength training, Balance training, Flexibilty training, Active ROM and Dynamic Lumbar Stabilization For the Purpose of:: To decrease pain, To increase ROM and To improve muscle performance and motor function Cryotherapy (ice pack, ice massage): Yes For the Purpose of:: To decrease pain Text: Thank you for the opportunity to evaluate your patient. For Medicare and Medicare HMO plans, please review the plan of care and approve it. It will need to be FAXED BACK to us at [phone] for Medicare purposes. For Medicare only, by signing this I certify the plan of care. Please let me know if there are questions or concerns regarding this plan of care. Physician Signature: D ate: 04/05/24 0907 CC: Dr. Clarita Vogel MD [facility] Signed Normal [facility] MR/BMS.[place] 03-29-2024 MR/MOLLY [facility] [address] [place] [address] OFFICE VISIT Date of Service: 03/29/24 MR#: [id number] Acct: [id number] Name: SAHNKAR CHOW Rep #: [id number] : 1945 Provider: Dr. Clarita suarez MD Age/Sex: 79/M Location: [facility] [place] [place] Status: Signed Intake Vital Signs 11/29/23 08:26 03/29/24 09:30 Height 5 ft 9 in 5 ft 9 in Weight: 185 lb 8 oz 188 lb 6 oz BMI 27.3 27.8 BP 162/70 H 164/75 H Blood Pressure Location Lt brachial Lt brachial Position Sitting Sitting Respiration 18 16 Pulse 57 L 61 Pulse Source Monitor Monitor Temp 98.2 F 98.2 F Temp Source Temporal Temporal Pulse Oximetry (%) 97 97 Oxygen Delivery Method room air room air Intake Visit Reasons: Continued Left Knee Pain Chief Complaint: continued L knee pain Oim Consultant Required: No Accompanied by: Self Is patient in pain?: Yes (L knee ) Pain scale (1-10): 5 Allergies ezetimibe (From Zetia) Adverse Reaction (Intermediate, Verified 03/29/24 09:20) unknown Sulfa (Sulfonamide Antibiotics) Adverse Reaction (Intermediate, Verified 03/29/24 09:20) [email or web address] Medications ???Medication ???Instructions ???Recorded ???Confirmed ???Type aspirin 81 mg tablet,delayed 81 mg PO QDAY 06/08/17 03/29/24 History release finasteride 5 mg tablet 5 mg PO QDAY 06/08/17 03/29/24 History multivitamin 1 tab PO QDAY 06/08/17 03/29/24 History pravastatin 40 mg tablet 40 mg PO DAILY #90 tabs 05/24/23 03/29/24 Rx sildenafil 100 mg tablet (Viagra) 100 mg PO ONCE PRN sexual activity 09/01/23 03/29/24 Rx #20 tabs levothyroxine 50 mcg tablet 50 mcg PO DAILY #90 tabs 12/02/23 03/29/24 Rx Have you fallen in the past year?: Yes (05/2023, fell on L ankle) [facility] Medical History (Updated 03/29/24 @ 10:[address] Clarita Vogel MD) Popliteal bursitis Encounter for colonoscopy following colon polyp removal Left ankle sprain COVID Weight loss Hypothyroidism History of skin cancer Seasonal allergies GERD (gastroesophageal reflux disease) Vasovagal syncope Syncope Hypothyroidism Hyperlipidemia BPH (benign prostatic hyperplasia) Family History Father CAD (coronary artery disease) Pacemaker Heart valve disease Liver disease Mother CAD (coronary artery disease) Hx of CABG Grandmother Breast cancer Sister Cancer Social History Smoking Status: Former smoker quit date: 06/07/79 Tobacco: How many years used: 18 alcohol intake: current alcohol intake frequency: holidays/special occasions only substance use type: does not use what type of physical activity do you participate in: walking frequency: 3-4 times per week HPI HPI Chief Complaint: continued L knee pain Details: SHANKAR CHOW, is a 79 M who presents to the office today for an acute care follow-up visit. He still having ongoing left knee discomfort. He describes pain largely posterior knee, and somewhat lateral knee as well. To summarize he has had this over the last number of months through the summer. It is affecting his ability to keep physically active. He enjoys walking for health benefits but this is limited him in that regards. He has been using some as needed Aleve but not frequent. He did not have any acute trauma but he did relate several things that change and he wondered if it could be in any way related. Earlier this year, he stepped from a curb and rolled his ankle on the left side. He did have x-rays of the ankle which were unremarkable and did not have knee pain at that time. That did not start for a number of months, towards the summertime. Secondly was that we did adjust his thyroid medication dose. However this did not correlate either with the onset of symptoms. He did have MRI bilateral knee because of the knee discomfort. These were obtained through [facility] physician who ordered them but done at [facility]. He states he never really did receive any information back from the [place]. I verbally gave him some feedback through my staff as basically the MRIs did not show any major bothersome acute findings such as major tears, ligamentous injuries etc. There is some minor findings as we discussed. There is a horizontal-oblique undersurface tear of the posterior horn of the medial meniscus (sagittal PD series 3 images 8-13). Normal hyaline cartilage of the medial femorotibial compartment. Normal medial femoral condyle and tibial plateau. Normal medial collateral ligamentous complex (MCL). Normal distal semimembranosus, gracilis and semitendinosus tendons. There is a partial radial tear of the free edge of the posterior horn of the lateral meniscus (sagittal PD series 3 images 30-31). Normal hyaline cartilage of the lateral fem (more content not included)... Normal [facility] Lower Ext Joint Only (Routin e)on 02-17-2024 Lower Ext Joint Only (Routine) [facility] Imaging Services [address], [place] [id number] Lower Ext Joint Only (Routine) MR#: [id number] Acct: [id number] Name: SHANKAR CHOW Rep #: [id number] : 1945 78 From: Chu Rosas MD PCP: Dr. Clarita Vogel MD Status: REG CLI Study: Lower Ext Joint Only (Routine) Date of Exam: 0 02/17/24 Exam# [id number] Ordering Dr: PARAG HARTMAN [id number] STUDY: MRI LEFT KNEE REASON FOR EXAM: Male, 78 years old. Knee pain. TECHNIQUE: Standardized fat and water weighted pulse sequences were obtained in all 3 orthogonal planes. COMPARISON: None. FINDINGS: There is a horizontal-oblique undersurface tear of the posterior horn of the medial meniscus (sagittal PD series 3 images 8-13). Normal hyaline cartilage of the medial femorotibial compartment. Normal medial femoral condyle and tibial plateau. Normal medial collateral ligamentous complex (MCL). Normal distal semimembranosus, gracilis and semitendinosus tendons. There is a partial radial tear of the free edge of the posterior horn of the lateral meniscus (sagittal PD series 3 images 30-31). Normal hyaline cartilage of the lateral femorotibial compartment. Normal lateral femoral condyle and tibial plateau. Normal proximal tibiofibular articulation. Normal lateral collateral (fibular) ligament. Normal popliteus tendon. Normal biceps femoris tendon. There is an interstitial sprain of the ACL without focal tear or laxity (sagittal T2 series 4 image 14). Normal posterior cruciate ligament (PCL). 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 There is slight lateral patellar subluxation. Normal medial and lateral patellar retinaculum. Normal quadriceps tendon. Normal patellar tendon. Normal Hoffa''s fat pad. There is mild deep infrapatellar bursitis. There is a small joint effusion. There is no popliteal cyst. There is mild subcutaneous soft tissue edema along the anteromedial and lateral aspects of the knee. MRI/Lower Ext Joint Only (Routine) IMPRESSION: Horizontal-oblique undersurface tear of the posterior horn of the medial meniscus. Partial radial tear of the free edge of the posterior horn of the lateral meniscus. Interstitial sprain of the ACL without focal tear or laxity. Low-grade chondromalacia patellae, with slight lateral patellar subluxation. Mild deep infrapatellar bursitis. Small joint effusion. Mild subcutaneous soft tissue edema along the anteromedial and lateral aspects of the knee. Electronically Signed: Chu Rosas MD at 9:35 EDT Reading Location ID and State: [address] [place] [address] , Service support , CC: Dr. Clarita Vogel MD; [employer] Clerk Plant Maintenance: Signed Normal [facility] Lower Ext Joint Only (Routine) [facility] Imaging Services [address] [place] [address] Lower Ext Joint Only (Routine) MR#: [id number] Acct: [id number] Name: SHANKAR CHOW Rep #: [id number] : 1945 78 From: Chu Rosas MD PCP: Dr. Clarita Vogel MD Status: REG CLI Study: Lower Ext Joint Only (Routine) Date of Exam: 0 02/17/24 Exam# [id number] Ordering Dr: PARAG HARTMAN [id number] STUDY: MRI RIGHT KNEE REASON FOR EXAM: Male, 78 years old. Knee pain. TECHNIQUE: Standardized fat and water weighted pulse sequences were obtained in all 3 orthogonal planes. COMPARISON: Right knee MRI dated 02/21/2016. FINDINGS: There is free edge blunting of the posterior horn of the medial meniscus (sagittal PD series 3 image 28), compatible with postoperative changes from partial medial meniscectomy and surgical recontouring. However, there is a focal radial tear of the posterior body of the medial meniscus (sagittal PD series 3 image 40; axial T2 series 2 image 18; coronal T2 series 6 image 15). Normal hyaline cartilage of the medial femorotibial compartment. Normal medial femoral condyle and tibial plateau. Normal medial collateral ligamentous complex (MCL). Normal distal semimembranosus, gracilis and semitendinosus tendons. There is a suspected new small horizontal tear of the body of the lateral meniscus (coronal PD series 5 images 14-15). Normal hyaline cartilage of the lateral femorotibial compartment. Normal lateral femoral condyle and tibial plateau. Normal proximal tibiofibular articulation. Normal lateral collateral (fibular) ligament. Normal popliteus tendon. Normal biceps femoris tendon. There is a chronic interstitial sprain of the ACL without focal tear or laxity (sagittal T2 series 4 images 12-13). Normal posterior cruciate ligament (PCL). Normal congruent patellofemoral articulation. Normal hyaline cartilage of the patellofemoral compartment. Normal medial and lateral patellar retinaculum. Normal quadriceps tendon. Normal patellar tendon. Normal Hoffa''s fat pad. There is a small joint effusion. There is no popliteal cyst. There is minimal subcutaneous soft tissue edema along the anteromedial aspect of the knee. There is no acute fracture. MRI/Lower Ext Joint Only (Routine) IMPRESSION: Free edge blunting of the posterior horn of the medial meniscus, compatible with postoperative changes from partial medial meniscectomy and surgical recontouring. Focal radial tear of the posterior body of the medial meniscus. Suspected new small horizontal tear of the body of the lateral meniscus. Chronic interstitial sprain of the ACL without focal tear or laxity. Small joint effusion. Electronically Signed: Chu Rosas MD at 9:46 EDT Reading Location ID and State: [facility] / [place] , Service support , CC: Dr. Clarita Vogel MD; PARAG HARTMAN Parts Clerk Plant Maintenance: Signed Normal [facility] Free T3on 01-24-2024 Free T3 [Mass/Vol] 2.6 pg/mL Normal 2.18-3.98 [facility] Comment on above: Performed By: #### L 506.0400, L501.51338, L501.9520 #### [facility] [address] [place], [address] T4 Free Directon 01-24-2024 T4 FREE DIRECT 0.97 ng/dL Normal 0.76-1.46 [facility] Comment on above: Performed By: #### L 506.0400, L501.39057, L501.9520 #### [facility] [address] [place], [address] Thyroid Stim Hormone (TSH)on 01-24-2024 TSH 2.080 uIU/mL Normal 0.358-3.740 [facility] Comment on above: Performed By: #### L 506.0400, L501.90295, L501.9520 #### [facility] [address] [place], [address] MR/BMS.Selina 11-29-2023 MR/CASSIDY.BETTINA [facility] [address] [place] [address]. [address] [place] [address] OFFICE VISIT Date of Service: 11/29/23 MR#: [id number] Acct: [id number] Name: SHANKAR CHOW Rep #: [id number] : 1945 Provider: Dr. Clarita suarez MD Age/Sex: 78/M Location: [facility] [place] [place] Status: Signed Intake Vital Signs 10/07/23 08:51 11/29/23 08:26 Height 5 ft 9 in 5 ft 9 in Weight: 186 lb 185 lb 8 oz BMI 27.4 27.3 BP 134/79 H 162/70 H Blood Pressure Location Lt brachial Lt brachial Position Sitting Sitting Respiration 18 18 Pulse 57 L 57 L Pulse Source Monitor Monitor Temp 98.2 F Temp Source Temporal Pulse Oximetry (%) 99 97 Oxygen Delivery Method room air Intake Visit Reasons: 6 mo checkup Chief Complaint: 6m f/u Oim Consultant Required: No Accompanied by: self Is patient in pain?: No Allergies ezetimibe (From Zetia) Adverse Reaction (Intermediate, Verified 11/29/23 08:24) unknown Sulfa (Sulfonamide Antibiotics) Adverse Reaction (Intermediate, Verified 11/29/23 08:24) uinknown Medications ???Medication ???Instructions ???Recorded ???Confirmed ???Type aspirin 81 mg tablet,delayed 81 mg PO QDAY 06/08/17 11/29/23 History release finasteride 5 mg tablet 5 mg PO QDAY 06/08/17 11/29/23 History multivitamin 1 tab PO QDAY 06/08/17 11/29/23 History pravastatin 40 mg tablet 40 mg PO DAILY #90 tabs 05/24/23 11/29/23 Rx sildenafil 100 mg tablet (Viagra) 100 mg PO ONCE PRN sexual activity 09/01/23 11/29/23 Rx #20 tabs levothyroxine 50 mcg tablet 25 mcg (1/2 x 50 mcg) PO DAILY #90 11/29/23 11/29/23 Rx tabs Have you fallen in the past year?: No PFSH Medical History Encounter for colonoscopy following colon polyp removal Left ankle sprain COVID Weight loss Hypothyroidism History of skin cancer Seasonal allergies GERD (gastroesophageal reflux disease) Vasovagal syncope Syncope Hypothyroidism Hyperlipidemia BPH (benign prostatic hyperplasia) Family History Father CAD (coronary artery disease) Pacemaker Heart valve disease Liver disease Mother CAD (coronary artery disease) Hx of CABG Grandmother Breast cancer Sister Cancer Social History Smoking Status: Former smoker quit date: 06/07/79 Tobacco: How many years used: 18 alcohol intake: current alcohol intake frequency: holidays/special occasions only substance use type: does not use what type of physical activity do you participate in: walking frequency: 3-4 times per week HPI HPI Chief Complaint: 6m f/u Details: SHANKAR CHOW, is a 78 M who presents to the office today for 6-month follow-up. Overall patient is doing well. He does not have any new specific concerning issues. He had a relatively recent CT scan, and follow-up of a right lower lung nodule seen on scan about 6 months earlier. [facility]. I asked [facility] so that [facility] would [facility] his CT scans as he had remote smoke exposure history, but also asbestos exposure in his occupation with the . Scan 6 months ago showed small right lower lobe nodule 4 mm. This was not identified on the most recent scan. Otherwise no changes were seen. He has a history of hyperlipidemia on pravastatin 40 mg daily and is stable. Urinary pattern has been stable. Usually up once or twice a night to urinate. He has been on long-term finasteride. He is on aspirin, and Viagra as needed. He has no new other symptoms. In regards to his right knee, still has some intermittent discomfort but not limiting or hampering him at this point so much. He usually tries to walk every other day so he does not aggravate it but otherwise seemingly is doing okay. Review of systems per chart. Physical exam. Vital signs on chart. PERRLA. Sclera are clear. TMs are unremarkable with normal light reflexes. Canals are unremarkable. No cervical or supraclavicular lymph nodes enlarged or tender. No clear thyromegaly. No thyroid nodules readily palpable. Lungs are without wheeze, rhonchi, rales. No E/A changes are heard. Heart is regular. Not tachycardic. No clear murmur, rub, or gallop is identified. The abdomen is soft. Bowel sounds are present. Nontender nondistended abdomen. No clear palpable masses in the abdomen. No significant leg edema. Cranial nerve examination 2 through 12 are grossly unremarkable nonlateralizing. ROS Const Constitutional: No body ache, chills, excessive sweating, fatigue, fever(s), frequent falls, headache(s), snoring, weakness or change in appetite Eyes Eyes: No blurry vision, change in vision, eye pain or Light sensitivity ENT ENT: No abnormal hearing, ear or mastoid pain, t (more content not included)... Normal [facility] Chest without Contraston Chest without Contrast [facility] Imaging Services [address] [place] [address] Chest without Contrast MR#: [id number] Acct: [id number] Name: SHANKAR CHOW Rep #: [id number] : 1945 M 78 From: Willam Chapman PCP: Dr. Clarita Vogel MD Status: [facility] CL Study: Chest without Contrast Date of Exam: 11/22/23 Exam# [id number] Ordering Dr: PARAG RIOS [id number] INDICATION: Abnormal findings on diagnostic imaging of other s EXAMINATION: CT CHEST WITHOUT CONTRAST TECHNIQUE: Helically acquired images were obtained of the chest. The protocol utilizes one or more of the following dose reduction techniques: automated exposure control, adjustment of mA and/or kV according to patient size,and/or use of iterative reconstruction technique. IV Contrast dosage and agent: None. RADIATION DOSAGE (If Supplied By Facility): CTDIvol = ( 11.71 ) mGy, DLP = ( 421.23 ) mGycm COMPARISON: Prior study dated: 06/01/2023 FINDINGS: LUNGS, PLEURA AND LARGE AIRWAYS: Bilateral lower lung stranding/scarring unchanged. No focal infiltrate. No pleural effusion or thickening. No pneumothorax. THYROID: No thyroid lesions. HEART AND PERICARDIUM: Heart size is normal. No pericardial effusion. CORONARY ARTERIES: Coronary artery calcification is seen. VESSELS: Thoracic aorta is not dilated. MEDIASTINUM AND NAKITA: No mediastinal or hilar adenopathy. Esophagus is unremarkable. No hiatal hernia. UPPER ABDOMEN: No acute pathology. BONES: Degenerative changes of the spine. CT/Chest without Contrast IMPRESSION: 1. No acute pulmonary infiltrates, adenopathy or pleural effusions. 2. Mild scarring in the lower lungs. Electronically Signed: Willam Shea MD at 9:34 EDT , CC: Dr. Clarita Vogel MD; PARAG [employer] Parts Clerk Plant Maintenance: Signed Normal [facility] Comprehensive Metabolic Prof ilon 11-22-2023 Albumin [Mass/Vol] 3.7 g/dL Normal 3.2-5.0 [facility] Comment on above: Performed By: #### L 501.46110, L506.0400, L501.9520, L500.4100, L500.4050 #### [facility] [address] [place], [address] Albumin/Globulin [Mass ratio] 1.0 {ratio} Normal 0.9-2.4 [facility] Comment on above: Performed By: #### L 501.17258, L506.0400, L501.9520, L500.4100, L500.4050 #### [facility] [address] [place], [address] ALK P 73 U/L Normal 45-117 [facility] Comment on above: Performed By: #### L 501.64933, L506.0400, L501.9520, L500.4100, L500.4050 #### [facility] [address] [place], [address] ALT [Catalytic activity/Vol] 33 U/L Normal 16-61 [facility] Comment on above: Performed By: #### L 501.61184, L506.0400, L501.9520, L500.4100, L500.4050 #### [facility] [address] [place], [address] AST [Catalytic activity/Vol] 29 U/L Normal 15-37 [facility] Comment on above: Performed By: #### L 501.99761, L506.0400, L501.9520, L500.4100, L500.4050 #### [facility] [address] [place], [address] Bilirubin [Mass/Vol] 0.70 mg/dL Normal 0.20-1.[address] [facility] Comment on above: Result Comment: For patients on eltrombopag therapy, use of Dimension [place] TBIL is not recommended. Performed By: #### L 501.08331, L506.0400, L501.9520, L500.4100, L500.4050 #### [facility] [address] [place], [address] BUN/CRE 21.6 RATIO High 10-20 [facility] Comment on above: Performed By: #### L 501.88756, L506.0400, L501.9520, L500.4100, L500.4050 #### [facility] [address] [place], [address] CA,Total 9.0 mg/dL Normal 8.5-10.1 [facility] Comment on above: Performed By: #### L 501.73001, L506.0400, L501.9520, L500.4100, L500.4050 #### [facility] [address] [place], [address] Chloride [Moles/Vol] 107 mmol/L Normal 98-[address] [facility] Comment on above: Performed By: #### L 501.85050, L506.0400, L501.9520, L500.4100, L500.4050 #### [facility] [address] [place], [address] CO2 [Moles/Vol] 26.0 mmol/L Normal 21.0-32.0 [facility] Comment on above: Performed By: #### L 501.30414, L506.0400, L501.9520, L500.4100, L500.4050 #### [facility] [address] [place], [address] Creatinine [Mass/Vol] 0.93 mg/dL Normal 0.70-1.30 [facility] Comment on above: Result Comment: The validity of the calculated GFR GFRAA in patients over 70 years has not been determined. Clinical correlation is essential. Performed By: #### L 501.10096, L506.0400, L501.9520, L500.4100, L500.4050 #### [facility] [address] [place], [address] EST GFR - AA 101 mL/min Normal >60 [facility] Comment on above: Result Comment: Afri can Greek GFR Calc Performed By: #### L 501.39220, L506.0400, L501.9520, L500.4100, L500.4050 #### [facility] [address] [place], [address] GAP 6 Normal 5-15 [facility] Comment on above: Performed By: #### L 501.10805, L506.0400, L501.9520, L500.4100, L500.4050 #### [facility] [address] [place], [address] GFR/1.73 sq M.predicted among non-blacks MDRD (S/P/Bld) [Vol rate/Area] 84 mL/min/{1.73_m2} Normal >60 [facility] Comment on above: Result Comment: Non- GFR Calc Performed By: #### L 501.15455, L506.0400, L501.9520, L500.4100, L500.4050 #### [facility] [address] [place], [address] Globulin (S) [Mass/Vol] 3.7 g/dL Normal 2.2-4.2 [facility] Comment on above: Performed By: #### L 501.50784, L506.0400, L501.9520, L500.4100, L500.4050 #### [facility] [address] [place], [address] Glucose [Mass/Vol] 95 mg/dL Normal 74-106 [facility] Comment on above: Performed By: #### L 501.29531, L506.0400, L501.9520, L500.4100, L500.4050 #### [facility] [address] [place], [address] Potassium [Moles/Vol] 4.0 mmol/L Normal 3.5-5.1 [facility] Comment on above: Performed By: #### L 501.11523, L506.0400, L501.9520, L500.4100, L500.4050 #### [facility] [address] [place], [address] Sodium [Moles/Vol] 139 mmol/L Normal 136-145 [facility] Comment on above: Performed By: #### L 501.82488, L506.0400, L501.9520, L500.4100, L500.4050 #### [facility] [address] [place], [address] T PROT 7.4 g/dL Normal 6.4-8.2 [facility] Comment on above: Performed By: #### L 501.76473, L506.0400, L501.9520, L500.4100, L500.4050 #### [facility] [address] [place], [address] Urea nitrogen [Mass/Vol] 20 mg/dL High 7-18 [facility] Comment on above: Performed By: #### L 501.35054, L506.0400, L501.9520, L500.4100, L500.4050 #### [facility] [address] [place], [address] Free T3on 11-22-2023 Free T3 [Mass/Vol] 2.7 pg/mL Normal 2.18-3.98 [facility] Comment on above: Performed By: #### L 501.92708, L506.0400, L501.9520, L500.4100, L500.4050 #### [facility] [address] [place], [address] Lipid Profileon 11-22-2023 Cholesterol [Mass/Vol] 163 mg/dL Normal 200 [facility] Comment on above: Result Comment: <200 mg/dL Desirable 200-240 mg/dL Borderline >240 mg/dL High Risk Performed By: #### L 501.46202, L506.0400, L501.9520, L500.4100, L500.4050 #### [facility] [address] [place], [address] Cholesterol in HDL [Mass/Vol] 70 mg/dL Normal [facility] Comment on above: Result Comment: The drugs N-Acetylcysteine and Metamizole may falsely depress this assay. Reference Range HDL <40 mg/dL Low HDL Cholesterol HDL >or= 60 mg/dL High HDL Cholesterol Performed By: #### L 501.24420, L506.0400, L501.9520, L500.4100, L500.4050 #### [facility] [address] [place], [address] Cholesterol in LDL [Mass/Vol] 79 mg/dL Normal 0-130 [facility] Comment on above: Performed By: #### L 501.40466, L506.0400, L501.9520, L500.4100, L500.4050 #### [facility] [address] [place], [address] Cholesterol in VLDL [Mass/Vol] 14 mg/dL Normal 5-40 [facility] Comment on above: Performed By: #### L 501.81729, L506.0400, L501.9520, L500.4100, L500.4050 #### [facility] [address] [place], [address] Triglyceride [Mass/Vol] 70 mg/dL Normal [facility] Comment on above: Result Comment: The drugs N-Acetylcysteine and Metamizole may falsely depress this assay. Serum Triglycerides Reference Interval Normal <150 mg/dL Borderline high 150 - 199 mg/dL High 200 - 499 mg/dL Very High > or = 500 mg/dL Performed By: #### L 501.74284, L506.0400, L501.9520, L500.4100, L500.4050 #### [facility] [address] [place], [address] T4 Free Directon 11-22-2023 T4 FREE DIRECT 0.85 ng/dL Normal 0.76-1.46 [facility] Comment on above: Performed By: #### L 501.48542, L506.0400, L501.9520, L500.4100, L500.4050 #### [facility] [address] [place], [address] Thyroid Stim Hormone (TSH)on 11-22-2023 TSH 4.29 uIU/mL High 0.358-3.74 [facility] Comment on above: Performed By: #### L 501.84538, L506.0400, L501.9520, L500.4100, L500.4050 #### [facility] [address] [place], [address] Cardiology Visit Reporton Cardiology Visit Report [facility] [address] [place] [address] OFFICE VISIT Date of Service: 10/07/23 MR#: [id number] Acct: [id number] Name: SHANKAR CHOW Rep #: [id number] : 1945 Provider: TYLER franco Age/Sex: 78/M Location: [facility] [place] [place] Status: Signed HPI HPI History of Present Illness Details: This is a 78-year-old white male who presents today for outpatient cardiovascular follow-up visit. He has a history of vasovagal/neurocardi ogenic mediated near syncope/syncope superimposed upon hyperlipidemia. From a cardiac standpoint, the patient is doing well. He denies any palpitations, chest pain, pressure or heaviness. He denies SOB, Orthopnea, and PND. He does not have bleeding issues; no blood in urine, stool or nosebleeds. He denies any decrease in energy level, myalgias, or claudication. He does not have edema, or sudden weight gain. He denies dizziness, lightheadedness, syncopal or near syncopal episodes, and headaches. Intake Vital Signs 04/08/23 09:23 08/25/23 09:23 10/07/23 08:51 Height 5 ft 9 in 5 ft 9 in 5 ft 9 in Weight: 186 lb BMI 27.4 BP 134/79 H Blood Pressure Location Lt brachial Position Sitting Respiration 18 Pulse 57 L Pulse Source Monitor Pulse Oximetry (%) 99 Intake Visit Reasons: 6 M FU Oim Consultant Required: No Is patient in pain?: No Allergies ezetimibe [From Zetia] Adverse Reaction (Intermediate, Verified 10/07/23 09:04) unknown Sulfa (Sulfonamide Antibiotics) Adverse Reaction (Intermediate, Verified 10/07/23 09:04) uinknown Medications aspirin 81 mg tablet,delayed release 81 mg PO QDAY 06/08/17 [History Confirmed 10/07/23] finasteride 5 mg tablet 5 mg PO QDAY 06/08/17 [History Confirmed 10/07/23] multivitamin 1 tab PO QDAY 06/08/17 [History Confirmed 10/07/23] pravastatin 40 mg tablet 40 mg PO DAILY #90 tabs 05/24/23 [Rx Confirmed 10/07/23] levothyroxine 25 mcg tablet 25 mcg PO DAILY #90 tabs 07/15/23 [Rx Confirmed 10/07/23] sildenafil 100 mg tablet (Viagra) 100 mg PO ONCE PRN sexual activity #20 tabs 09/01/23 [Rx Confirmed 10/07/23] PFSH Medical History (Reviewed 10/07/23 @ 09:31 by Danielle Chery ELECTRIC DRILL OPERATOR, ELECTRIC DRILL OPERATOR-C) BPH (benign prostatic hyperplasia) COVID Encounter for colonoscopy following colon polyp removal GERD (gastroesophageal reflux disease) History of skin cancer Hyperlipidemia Hypothyroidism Hypothyroidism Left ankle sprain Seasonal allergies Syncope Vasovagal syncope Weight loss Family History (Reviewed 10/07/23 @ 09:31 by Danielle Chery ELECTRIC DRILL OPERATOR, ELECTRIC DRILL OPERATOR-C) Father CAD (coronary artery disease) Pacemaker Heart valve disease Liver disease Mother CAD (coronary artery disease) Hx of CABG Grandmother Breast cancer Sister Cancer Social History (Reviewed 10/07/23 @ 09:31 by Danielle Chery ELECTRIC DRILL OPERATOR, ELECTRIC DRILL OPERATOR-C) Smoking Status: Former smoker quit date: 06/07/79 Tobacco: How many years used: 18 alcohol intake: current alcohol intake frequency: holidays/special occasions only substance use type: does not use what type of physical activity do you participate in: walking frequency: 3-4 times per week ROS Const Const: Negative for fatigue, weakness, fever(s), headache(s), chills, frequent falls, weight gain or weight loss Eyes Eyes: Negative for blind spots, loss of peripheral vision, transient loss of vision, blurry vision, change in vision, double vision, floaters or tunnel vision ENT ENT: Negative for headache(s), dizziness, Nosebleed/epistaxis, balance problems or neck pain Cardio Chest Pain: No Palpitations: No Edema: None Muscle aches with walking: None Resp Respiratory: Negative for SOB with activity, SOB at rest or SOB orthopnea SOB lying down GI GI: Negative nausea, vomiting, heartburn, bloating, vomiting blood/hematemesis, bright, red blood in stools or black,tarry stools Musc Musc: Negative for muscle aches/ myalgia, muscle weakness, joint pain or balance problems Neuro Neuro: Negative for dizziness, lightheadedness, near syncope, syncope, orthostatic symptoms, frequent falls, headache(s), weakness, blurry vision or double vision Jalil Hematologic/Lymphati c: Negative for easy bleeding or easy bruising Endo Endo: Negative for fatigue Cardiology Exam Const Appearance: cooperative, healthy appearing, comfortable, no acute distress, well developed and well groomed Nutritional Appearance: average body habitus, well nourished and overweight Head Head: normal to inspection, normocephalic and atraumatic Ears: hearing grossly normal bilaterally Nose: external nose normal Face and Sinus: face symmetric Eyes Eyelids: eyelids normal Conjunctivae: conjunctivae normal Pupils: PERRL EOM: EOM intact bilaterally Neck Neck: normal visual inspection and full ROM Carotids: normal carotid upstroke Chest Lary (more content not included)... Normal [facility] Absolute lymphocyte countOrd ered By: Clarita Vogel on 04-13-2023 Lymphocytes Auto (Unsp spec) [#/Vol] 2.15 10*3/uL 0.83-4.51 [facility] Basophil percentageOrdered B y: Clarita Vogel on 04-13-2023 Basophils/100 WBC (Bld) 1.4 % 0-[address] [facility] Bilirubin [Mass/Vol] 0.80 mg/dL 0.20-1.[address] [facility] Comment on above: For patients on eltr ombopag therapy, use of Dimension [place] TBIL is not recommended. Chloride [Moles/Vol] 106 mmol/L 98-[address] [facility] Cholesterol [Mass/Vol] 167 mg/dL <200 [facility] Comment on above: <200 mg/dL Desirable 200-240 mg/dL Borderline >240 mg/dL High Risk Eosinophils/100 WBC (Bld) 3.7 % 0-5 [facility] Glucose [Mass/Vol] 96 mg/dL 74-106 [facility] Neutrophils (Bld) [#/Vol] 2.8 10*3/uL 2.0-7.7 [facility] Neutrophils/100 WBC (Bld) 48.7 % 47-70 [facility] Potassium [Moles/Vol] 4.0 mmol/L 3.5-5.1 [facility] Protein [Mass/Vol] 7.1 g/dL 6.4-8.2 [facility] Sodium [Moles/Vol] 138 mmol/L 136-145 [facility] Triglyceride [Mass/Vol] 75 mg/dL <[address] [facility] Comment on above: The drugs N-Acetylcy steine and Metamizole may falsely depress this assay.Serum Triglycerides Reference Interval Normal <150 mg/dL Borderline high 150 - 199 mg/dL High 200 - 499 mg/dL Very High > or = 500 mg/dL WBC (Bld) [#/Vol] 5.7 10*3/uL 4.4-11.0 [facility] Blood erythrocytes count (nu mber/volume)Ordered By: Clarita Vogel on 04-13-2023 RBC (Bld) [#/Vol] 4.55 10*6/uL 4.6-6.2 [facility] Blood hemoglobin measurement (mass/volume)Ordered By: Clarita Vogel on 04-13-2023 Hemoglobin (Bld) [Mass/Vol] 14.6 g/dL 13.0-16.5 [facility] Blood lymphocytes/100 leukoc ytesOrdered By: Clarita Vogel on 04-13-2023 Lymphocytes/100 WBC (Bld) 37.9 % 19-41 [facility] Blood monocytes/100 leukocyt esOrdered By: Clarita Vogel on 04-13-2023 Monocytes/100 WBC (Bld) 8.1 % 0-[address] [facility] Blood platelet mean volumeOr dered By: Clarita Vogel on 04-13-2023 Platelet mean volume (Bld) [Entitic vol] 9.6 fL 6.2-12.0 [facility] Determination of erythrocyte mean corpuscular volume (MCV)Ordered By: Clarita Vogel on 04-13-2023 MCV (RBC) [Entitic vol] 95.4 fL 80-[address] [facility] Hematocrit Auto (Bld) [Volum e fraction]Ordered By: Clarita Vogel on 04-13-2023 Hematocrit (Bld) [Volume fraction] 43.4 % 40-54 [facility] Laboratory - Chemistry and C hemistry - challengeOrdered By: Clarita Vogel on 04-13-2023 ALP [Catalytic activity/Vol] 68 U/L 45-117 [facility] ALT [Catalytic activity/Vol] 28 U/L 16-61 [facility] CO2 [Moles/Vol] 31.0 mmol/L 21.0-32.0 [facility] Free T4 [Mass/Vol] 0.90 ng/dL 0.76-1.46 [facility] Globulin (S) [Mass/Vol] 3.3 g/dL 2.2-4.[address] [facility] Urea nitrogen/Creatinine [Mass ratio] 19.8 mg/mg 10-20 [facility] Laboratory - Hematology and Cell countsOrdered By: Clarita Vogel on 04-13-2023 Erythrocyte distribution width (RBC) [Entitic vol] 45.9 fL 35.1-43.9 [facility] Erythrocyte distribution width (RBC) [Ratio] 13.0 % 11.6-14.6 [facility] Immature granulocytes/100 WBC (Bld) 0.200 % 0.0-0.9 [facility] Comment on above: IG% - Immature Granu locytes (promyelocytes, myelocytes and metamyelocytes) > 1% indicates that a LEFT SHIFT is Present. MCH (RBC) [Entitic mass] 32.1 pg 27.0-32.0 [facility] Nucleated RBC/100 WBC (Bld) [Ratio] 0 % 0-5 [facility] MCHC Auto (RBC) [Mass/Vol]Or dered By: Clarita Vogel on 04-13-2023 MCHC (RBC) [Mass/Vol] 33.6 g/dL 32-36 [facility] No Panel InformationOrdered By: Clarita Vogel on 04-13-2023 Estimated GFR (MDRD) Amer 104 mL/min >60 [facility] Comment on above: GFR Calc Estimated GFR (MDRD) Non-Af Amer 86 mL/min >60 [facility] Comment on above: Non- GFR Calc Free Triiodothyronine (T3) pg/dL 2.6 pg/mL 2.18-3.98 [facility] Thyroid Stimulating Hormone (TSH) 3.73 uIU/mL 0.358-3.74 [facility] Vitamin D 25-Hydroxy 52.4 ng/mL [facility] Comment on above: Vitamin D 25(OH) Sta tus Range Deficiency <20 ng/mL (50nmol/L) Insufficiency 20 - 30 ng/mL (50 - 75 nmol/L) Sufficiency 30 - 100 ng/mL (75 - 250 nmol/L) Toxicity >100 ng/mL (>250 nmol/L) Platelets bldOrdered By: Arleth Vogel on 04-13-2023 Platelets (Bld) [#/Vol] 226 10*3/uL 150-450 [facility] Serum or plasma albumin sam urement (mass/volume)Ordered By: Clarita Vogel on 04-13-2023 Albumin [Mass/Vol] 3.8 g/dL 3.2-5.0 [facility] Serum or plasma albumin/glob ulin mass ratioOrdered By: Clarita Vogel on 04-13-2023 Albumin/Globulin [Mass ratio] 1.2 {ratio} 0.9-2.4 [facility] Serum or plasma calcium sam urement (mass/volume)Ordered By: Clarita Vogel on 04-13-2023 Calcium [Mass/Vol] 8.8 mg/dL 8.5-10.1 [facility] Serum or plasma cholesterol in HDL measurement (mass/volume)Ordered By: Clarita Vogel on 04-13-2023 Cholesterol in HDL [Mass/Vol] 77 mg/dL >40 [facility] Comment on above: The drugs N-Acetylcy steine and Metamizole may falsely depress this assay. Reference Range HDL <40 mg/dL Low HDL Cholesterol HDL >or= 60 mg/dL High HDL Cholesterol Serum or plasma cholesterol in VLDL measurement (mass/volume)Ordered By: Clarita Vogel on 04-13-2023 Cholesterol in VLDL [Mass/Vol] 15 mg/dL 5-40 [facility] Serum or plasma creatinine m easurement (mass/volume)Ordered By: Clarita Vogel on 04-13-2023 Creatinine [Mass/Vol] 0.91 mg/dL 0.70-1.30 [facility] Comment on above: The validity of the calculated GFR & GFRAA in patients over 70 years has not been determined. Clinical correlation is essential. Serum or plasma low density lipoprotein (LDL) cholesterol measurement (mass/volume)Ordered By: Clarita Vogel on 04-13-2023 Cholesterol in LDL [Mass/Vol] 75 mg/dL 0-130 [facility] Serum or plasma urea nitroge n measurement (mass/volume)Ordered By: Clarita Vogel on 04-13-2023 Urea nitrogen [Mass/Vol] 18 mg/dL 7-18 [facility] Thin prep Papanicolaou smear with manual screeningOrdered By: Clarita Vogel on 04-13-2023 Thin prep Papanicolaou smear with manual screening 23 U/L 15-37 [facility] Thin prep Papanicolaou smear with manual screening 1 5-15 [facility] No Panel InformationOrdered By: Beto Jane on 03-18-2023 Prostate Specific Antigen Screen 3.99 ng/mL 0.00-4.00 [facility] Comment on above: This test was perfor med using the TPSA assay method for the[employer] chemistry system. Values obtained with differentassay methods cannot be used interchangably.When changing PSA assays in the course of monitoring apatient, additional sequential testing should be carriedout to confirm baseline values. Absolute lymphocyte countOrd ered By: Dr. Vogel on 10-14-2022 Lymphocytes Auto (Unsp spec) [#/Vol] 2.04 10*3/uL 0.83-4.51 [facility] Basophil percentageOrdered B y: Dr. Vogel on 10-14-2022 Basophils/100 WBC (Bld) 1.2 % 0-[address] [facility] Bilirubin [Mass/Vol] 0.60 mg/dL 0.20-1.[address] [facility] Comment on above: For patients on eltr ombopag therapy, use of Dimension [place] TBIL is not recommended. Chloride [Moles/Vol] 109 mmol/L 98-[address] [facility] Cholesterol [Mass/Vol] 156 mg/dL <200 [facility] Comment on above: <200 mg/dL Desirable 200-240 mg/dL Borderline >240 mg/dL High Risk Eosinophils/100 WBC (Bld) 6.9 % 0-5 [facility] Glucose [Mass/Vol] 100 mg/dL 74-106 [facility] Comment on above: Fasting Glucose resu lt from 100 to 125 mg/dL suggests IMPAIRED HOMEOSTASIS per A.D.A. criteria. Neutrophils (Bld) [#/Vol] 2.2 10*3/uL 2.0-7.7 [facility] Neutrophils/100 WBC (Bld) 41.6 % 47-70 [facility] Potassium [Moles/Vol] 4.2 mmol/L 3.5-5.1 [facility] Protein [Mass/Vol] 6.8 g/dL 6.4-8.2 [facility] Sodium [Moles/Vol] 142 mmol/L 136-145 [facility] Triglyceride [Mass/Vol] 54 mg/dL <199 [facility] Comment on above: The drugs N-Acetylcy steine and Metamizole may falsely depress this assay.Serum Triglycerides Reference Interval Normal <150 mg/dL Borderline high 150 - 199 mg/dL High 200 - 499 mg/dL Very High > or = 500 mg/dL WBC (Bld) [#/Vol] 5.2 10*3/uL 4.4-11.0 [facility] Blood erythrocytes count (nu mber/volume)Ordered By: Dr. Vogel on 10-14-2022 RBC (Bld) [#/Vol] 4.52 10*6/uL 4.6-6.2 [facility] Blood hemoglobin measurement (mass/volume)Ordered By: Dr. Vogel on 10-14-2022 Hemoglobin (Bld) [Mass/Vol] 14.3 g/dL 13.0-16.5 [facility] Blood lymphocytes/100 leukoc ytesOrdered By: Dr. Vogel on 10-14-2022 Lymphocytes/100 WBC (Bld) 39.3 % 19-41 [facility] Blood monocytes/100 leukocyt esOrdered By: Dr. Vogel on 10-14-2022 Monocytes/100 WBC (Bld) 10.8 % 0-10 [facility] Blood platelet mean volumeOr dered By: Dr. Vogel on 10-14-2022 Platelet mean volume (Bld) [Entitic vol] 9.9 fL 6.2-12.0 [facility] Determination of erythrocyte mean corpuscular volume (MCV)Ordered By: Dr. Vogel on 10-14-2022 MCV (RBC) [Entitic vol] 94.7 fL 80-[address] [facility] Hematocrit Auto (Bld) [Volum e fraction]Ordered By: Dr. Vogel on 10-14-2022 Hematocrit (Bld) [Volume fraction] 42.8 % 40-54 [facility] Laboratory - Chemistry and C hemistry - challengeOrdered By: Dr. Vogel on 10-14-2022 ALP [Catalytic activity/Vol] 68 U/L 45-117 [facility] ALT [Catalytic activity/Vol] 27 U/L 16-61 [facility] CO2 [Moles/Vol] 29.0 mmol/L 21.0-32.0 [facility] Free T4 [Mass/Vol] 0.87 ng/dL 0.76-1.46 [facility] Globulin (S) [Mass/Vol] 3.2 g/dL 2.2-4.[address] [facility] Urea nitrogen/Creatinine [Mass ratio] 14.4 mg/mg 10-20 [facility] Laboratory - Hematology and Cell countsOrdered By: Dr. Vogel on 10-14-2022 Erythrocyte distribution width (RBC) [Entitic vol] 46.4 fL 35.1-43.9 [facility] Erythrocyte distribution width (RBC) [Ratio] 13.3 % 11.6-14.6 [facility] Immature granulocytes/100 WBC (Bld) 0.200 % 0.0-0.9 [facility] Comment on above: IG% - Immature Granu locytes (promyelocytes, myelocytes and metamyelocytes) > 1% indicates that a LEFT SHIFT is Present. MCH (RBC) [Entitic mass] 31.6 pg 27.0-32.0 [facility] Nucleated RBC/100 WBC (Bld) [Ratio] 0 % 0-5 [facility] MCHC Auto (RBC) [Mass/Vol]Or dered By: Dr. Vogel on 10-14-2022 MCHC (RBC) [Mass/Vol] 33.4 g/dL 32-36 [facility] No Panel InformationOrdered By: Dr. Vogel on 10-14-2022 Estimated GFR (MDRD) Amer 115 mL/min >60 [facility] Comment on above: GFR Calc Estimated GFR (MDRD) Non-Af Amer 95 mL/min >60 [facility] Comment on above: Non- GFR Calc Free Triiodothyronine (T3) pg/dL 2.4 pg/mL 2.18-3.98 [facility] Thyroid Stimulating Hormone (TSH) 3.68 uIU/mL 0.358-3.74 [facility] Platelets bldOrdered By: Dr. Vogel on 10-14-2022 Platelets (Bld) [#/Vol] 212 10*3/uL 150-450 [facility] Serum or plasma albumin sam urement (mass/volume)Ordered By: Dr. Vogel on 10-14-2022 Albumin [Mass/Vol] 3.6 g/dL 3.2-5.0 [facility] Serum or plasma albumin/glob ulin mass ratioOrdered By: Dr. Vogel on 10-14-2022 Albumin/Globulin [Mass ratio] 1.1 {ratio} 0.9-2.4 [facility] Serum or plasma calcium sam urement (mass/volume)Ordered By: Dr. Vogel on 10-14-2022 Calcium [Mass/Vol] 8.7 mg/dL 8.5-10.1 [facility] Serum or plasma cholesterol in HDL measurement (mass/volume)Ordered By: Dr. Vogel on 10-14-2022 Cholesterol in HDL [Mass/Vol] 75 mg/dL >40 [facility] Comment on above: The drugs N-Acetylcy steine and Metamizole may falsely depress this assay. Reference Range HDL <40 mg/dL Low HDL Cholesterol HDL >or= 60 mg/dL High HDL Cholesterol Serum or plasma cholesterol in VLDL measurement (mass/volume)Ordered By: Dr. Vogel on 10-14-2022 Cholesterol in VLDL [Mass/Vol] 11 mg/dL 5-40 [facility] Serum or plasma creatinine m easurement (mass/volume)Ordered By: Dr. Vogel on 10-14-2022 Creatinine [Mass/Vol] 0.84 mg/dL 0.70-1.30 [facility] Comment on above: The validity of the calculated GFR & GFRAA in patients over 70 years has not been determined. Clinical correlation is essential. Serum or plasma low density lipoprotein (LDL) cholesterol measurement (mass/volume)Ordered By: Dr. Vogel on 10-14-2022 Cholesterol in LDL [Mass/Vol] 70 mg/dL 0-130 [facility] Serum or plasma urea nitroge n measurement (mass/volume)Ordered By: Dr. Vogel on 10-14-2022 Urea nitrogen [Mass/Vol] 12 mg/dL 7-18 [facility] Thin prep Papanicolaou smear with manual screeningOrdered By: Dr. Vogel on 10-14-2022 Thin prep Papanicolaou smear with manual screening 21 U/L 15-37 [facility] Thin prep Papanicolaou smear with manual screening 4 5-15 [facility] Absolute lymphocyte counton 04-06-2022 Lymphocytes Auto (Unsp spec) [#/Vol] 2.10 10*3/uL 0.83-4.51 [facility] Work Phone: Basophil percentageon 2021 Basophils/100 WBC (Bld) 1.1 % 0-1 [facility] Work Phone: Bilirubin [Mass/Vol] 0.60 mg/dL 0.20-1.[address] [facility] Work Phone: Comment on above: For patients on eltr ombopag therapy, use of Dimension [place] TBIL is not recommended. Chloride [Moles/Vol] 104 mmol/L 98-[address] [facility] Work Phone: Cholesterol [Mass/Vol] 152 mg/dL <200 [facility] Work Phone: Comment on above: <200 mg/dL Desirable 200-240 mg/dL Borderline >240 mg/dL High Risk Eosinophils/100 WBC (Bld) 4.3 % 0-5 [facility] Work Phone: Glucose [Mass/Vol] 83 mg/dL 74-106 [facility] Work Phone: Neutrophils (Bld) [#/Vol] 5.0 10*3/uL 2.0-7.7 [facility] Work Phone: Neutrophils/100 WBC (Bld) 60.1 % 47-70 [facility] Work Phone: Potassium [Moles/Vol] 3.9 mmol/L 3.5-5.1 [facility] Work Phone: Protein [Mass/Vol] 7.4 g/dL 6.4-8.2 [facility] Work Phone: Sodium [Moles/Vol] 139 mmol/L 136-145 [facility] Work Phone: Triglyceride [Mass/Vol] 74 mg/dL <[address] [facility] Work Phone: Comment on above: The drugs N-Acetylcy steine and Metamizole may falsely depress this assay.Serum Triglycerides Reference Interval Normal <150 mg/dL Borderline high 150 - 199 mg/dL High 200 - 499 mg/dL Very High > or = 500 mg/dL WBC (Bld) [#/Vol] 8.4 10*3/uL 4.4-11.0 [facility] Work Phone: Blood erythrocytes count (nu mber/volume)on 04-06-2022 RBC (Bld) [#/Vol] 4.56 10*6/uL 4.6-6.2 [facility] Work Phone: [phone] Blood hemoglobin measurement (mass/volume)on 04-06-2022 Hemoglobin (Bld) [Mass/Vol] 14.7 g/dL 13.0-16.5 [facility] Work Phone: Blood lymphocytes/100 leukoc yteson 04-06-2022 Lymphocytes/100 WBC (Bld) 25.1 % 19-41 [facility] Work Phone: Blood monocytes/100 leukocyt eson 04-06-2022 Monocytes/100 WBC (Bld) 9.0 % 0-[address] [facility] Work Phone: Blood platelet mean volumeon 04-06-2022 Platelet mean volume (Bld) [Entitic vol] 9.6 fL 6.2-12.0 [facility] Work Phone: Determination of erythrocyte mean corpuscular volume (MCV)on 04-06-2022 MCV (RBC) [Entitic vol] 93.9 fL 80-[address] [facility] Work Phone: [phone] Hematocrit Auto (Bld) [Volum e fraction]on 04-06-2022 Hematocrit (Bld) [Volume fraction] 42.8 % 40-54 [facility] Work Phone: Laboratory - Chemistry and C hemistry - challengeon 04-06-2022 ALP [Catalytic activity/Vol] 78 U/L 45-117 [facility] Work Phone: ALT [Catalytic activity/Vol] 24 U/L 16-61 [facility] Work Phone: CO2 [Moles/Vol] 30.0 mmol/L 21.0-32.0 [facility] Work Phone: Free T4 [Mass/Vol] 0.99 ng/dL 0.76-1.46 [facility] Work Phone: Globulin (S) [Mass/Vol] 3.9 g/dL 2.2-4.[address] [facility] Work Phone: Urea nitrogen/Creatinine [Mass ratio] 18.0 mg/mg 10-20 [facility] Work Phone: Laboratory - Hematology and Cell countson 04-06-2022 Erythrocyte distribution width (RBC) [Entitic vol] 44.6 fL 35.1-43.9 [facility] Work Phone: Erythrocyte distribution width (RBC) [Ratio] 13.0 % 11.6-14.6 [facility] Work Phone: Immature granulocytes/100 WBC (Bld) 0.400 % 0.0-0.9 [facility] Work Phone: Comment on above: IG% - Immature Granu locytes (promyelocytes, myelocytes and metamyelocytes) > 1% indicates that a LEFT SHIFT is Present. MCH (RBC) [Entitic mass] 32.2 pg 27.0-32.0 [facility] Work Phone: Nucleated RBC/100 WBC (Bld) [Ratio] 0 % 0-5 [facility] Work Phone: MCHC Auto (RBC) [Mass/Vol]on 04-06-2022 MCHC (RBC) [Mass/Vol] 34.3 g/dL 32-36 [facility] Work Phone: No Panel Informationon 04-06 Estimated GFR (MDRD) Amer 124 mL/min >60 [facility] Work Phone: Comment on above: GFR Calc Estimated GFR (MDRD) Non-Af Amer 103 mL/min >60 [facility] Work Phone: Comment on above: Non- GFR Calc Free Triiodothyronine (T3) pg/dL 2.2 pg/mL 2.18-3.98 [facility] Work Phone: Thyroid Stimulating Hormone (TSH) 4.21 uIU/mL 0.358-3.74 [facility] Work Phone: Vitamin D 25-Hydroxy 45.0 ng/mL [facility] Work Phone: Comment on above: Vitamin D 25(OH) Sta tus Range Deficiency <20 ng/mL (50nmol/L) Insufficiency 20 - 30 ng/mL (50 - 75 nmol/L) Sufficiency 30 - 100 ng/mL (75 - 250 nmol/L) Toxicity >100 ng/mL (>250 nmol/L) Platelets bldon 04-06-2022 Platelets (Bld) [#/Vol] 294 10*3/uL 150-450 [facility] Work Phone: Serum or plasma albumin sam urement (mass/volume)on 04-06-2022 Albumin [Mass/Vol] 3.5 g/dL 3.2-5.0 [facility] Work Phone: Serum or plasma albumin/glob ulin mass ratioon 04-06-2022 Albumin/Globulin [Mass ratio] 0.9 {ratio} 0.9-2.4 [facility] Work Phone: Serum or plasma calcium sam urement (mass/volume)on 04-06-2022 Calcium [Mass/Vol] 8.6 mg/dL 8.5-10.1 [facility] Work Phone: Serum or plasma cholesterol in HDL measurement (mass/volume)on 04-06-2022 Cholesterol in HDL [Mass/Vol] 65 mg/dL >40 [facility] Work Phone: Comment on above: The drugs N-Acetylcy steine and Metamizole may falsely depress this assay. Reference Range HDL <40 mg/dL Low HDL Cholesterol HDL >or= 60 mg/dL High HDL Cholesterol Serum or plasma cholesterol in VLDL measurement (mass/volume)on 04-06-2022 Cholesterol in VLDL [Mass/Vol] 15 mg/dL 5-40 [facility] Work Phone: Serum or plasma creatinine m easurement (mass/volume)on 04-06-2022 Creatinine [Mass/Vol] 0.78 mg/dL 0.70-1.30 [facility] Work Phone: Comment on above: The validity of the calculated GFR & GFRAA in patients over 70 years has not been determined. Clinical correlation is essential. Serum or plasma low density lipoprotein (LDL) cholesterol measurement (mass/volume)on 04-06-2022 Cholesterol in LDL [Mass/Vol] 72 mg/dL 0-130 [facility] Work Phone: Serum or plasma urea nitroge n measurement (mass/volume)on 04-06-2022 Urea nitrogen [Mass/Vol] 14 mg/dL 7-18 [facility] Work Phone: Thin prep Papanicolaou smear with manual screeningon 04-06-2022 Thin prep Papanicolaou smear with manual screening 17 U/L 15-37 [facility] Work Phone: Thin prep Papanicolaou smear with manual screening 5 5-15 [facility] Work Phone: No Panel Informationon 01-07 Prostate Specific Antigen Total 2.68 ng/mL 0.0-4.0 [facility] Work Phone: Comment on above: This test was perfor med using the TPSA assay method for [employer] chemistry system. Values obtained with differentassay methods cannot be used interchangably.When changing PSA assays in the course of monitoring apatient, additional sequential testing should be carriedout to confirm baseline values. Absolute lymphocyte counton 11-04-2021 Lymphocytes Auto (Unsp spec) [#/Vol] 2.03 10*3/uL 0.83-4.51 [facility] Work Phone: Basophil percentageon 2021 Basophils/100 WBC (Bld) 1.3 % 0-[address] [facility] Work Phone: Bilirubin [Mass/Vol] 0.70 mg/dL 0.20-1.[address] [facility] [facility] Work Phone: Comment on above: For patients on eltr ombopag therapy, use of Dimension [place] TBIL is not recommended. Chloride [Moles/Vol] 109 mmol/L 98-[address] [facility] Work Phone: Cholesterol [Mass/Vol] 163 mg/dL <200 [facility] Work Phone: Comment on above: <200 mg/dL Desirable 200-240 mg/dL Borderline >240 mg/dL High Risk Eosinophils/100 WBC (Bld) 5.2 % 0-5 [facility] Work Phone: Glucose [Mass/Vol] 98 mg/dL 74-106 [facility] Work Phone: Neutrophils (Bld) [#/Vol] 2.5 10*3/uL 2.0-7.7 [facility] Work Phone: Neutrophils/100 WBC (Bld) 45.6 % 47-70 [facility] Work Phone: Potassium [Moles/Vol] 4.2 mmol/L 3.5-5.1 [facility]: Protein [Mass/Vol] 6.8 g/dL 6.4-8.2 [facility] Work Phone: Sodium [Moles/Vol] 142 mmol/L 136-145 [facility] Work Phone: Triglyceride [Mass/Vol] 50 mg/dL [facility] Work Phone: Comment on above: The drugs N-Acetylcy steine and Metamizole may falsely depress this assay.Serum Triglycerides Reference Interval Normal <150 mg/dL Borderline high 150 - 199 mg/dL High 200 - 499 mg/dL Very High > or = 500 mg/dL WBC (Bld) [#/Vol] 5.4 10*3/uL 4.4-11.0 [facility] Work Phone: Blood erythrocytes count (nu mber/volume)on 11-04-2021 RBC (Bld) [#/Vol] 4.36 10*6/uL 4.6-6.2 [facility] Work Phone: Blood hemoglobin measurement (mass/volume)on 11-04-2021 Hemoglobin (Bld) [Mass/Vol] 13.9 g/dL 13.0-16.5 [facility] Work Phone: Blood lymphocytes/100 leukoc yteson 11-04-2021 Lymphocytes/100 WBC (Bld) 37.8 % 19-41 [facility] Work Phone: Blood monocytes/100 leukocyt eson 11-04-2021 Monocytes/100 WBC (Bld) 9.9 % 0-[address] [facility] Work Phone: Blood platelet mean volumeon 11-04-2021 Platelet mean volume (Bld) [Entitic vol] 9.5 fL 6.2-12.0 [facility] Work Phone: Determination of erythrocyte mean corpuscular volume (MCV)on 11-04-2021 MCV (RBC) [Entitic vol] 94.7 fL 80-[address] [facility] Work Phone: Hematocrit Auto (Bld) [Volum e fraction]on 11-04-2021 Hematocrit (Bld) [Volume fraction] 41.3 % 40-54 [facility] Work Phone: Laboratory - Chemistry and C hemistry - challengeon 11-04-2021 ALP [Catalytic activity/Vol] 66 U/L 45-117 [facility] Work Phone: ALT [Catalytic activity/Vol] 28 U/L 16-61 [facility] Work Phone: CO2 [Moles/Vol] 31.0 mmol/L 21.0-32.0 [facility] Work Phone: Free T4 [Mass/Vol] 0.96 ng/dL 0.76-1.46 [facility]: Globulin (S) [Mass/Vol] 3.3 g/dL 2.2-4.[address] [facility] Work Phone: Urea nitrogen/Creatinine [Mass ratio] 15.6 mg/mg 10-20 [facility] Work Phone: Laboratory - Hematology and Cell countson 11-04-2021 Erythrocyte distribution width (RBC) [Entitic vol] 46.2 fL 35.1-43.9 [facility] Work Phone: Erythrocyte distribution width (RBC) [Ratio] 13.2 % 11.6-14.6 [facility] Work Phone: [phone] Immature granulocytes/100 WBC (Bld) 0.200 % 0.0-0.9 [facility] Work Phone: Comment on above: IG% - Immature Granu locytes (promyelocytes, myelocytes and metamyelocytes) > 1% indicates that a LEFT SHIFT is Present. MCH (RBC) [Entitic mass] 31.9 pg 27.0-32.0 [facility] Work Phone: Nucleated RBC/100 WBC (Bld) [Ratio] 0 % 0-5 [facility] Work Phone: MCHC Auto (RBC) [Mass/Vol]on 11-04-2021 MCHC (RBC) [Mass/Vol] 33.7 g/dL 32-36 [facility] Work Phone: No Panel Informationon 11-04 Estimated GFR (MDRD) Amer 116 mL/min >60 [facility] Work Phone: Comment on above: GFR Calc Estimated GFR (MDRD) Non-Af Amer 95 mL/min >60 [facility] Work Phone: Comment on above: Non- GFR Calc Free Triiodothyronine (T3) pg/dL 2.4 pg/mL 2.18-3.98 [facility] Work Phone: Thyroid Stimulating Hormone (TSH) 3.12 uIU/mL 0.358-3.74 [facility] Work Phone: Platelets bldon 11-04-2021 Platelets (Bld) [#/Vol] 232 10*3/uL 150-450 [facility] Work Phone: Serum or plasma albumin sam urement (mass/volume)on 11-04-2021 Albumin [Mass/Vol] 3.5 g/dL 3.2-5.0 [facility] Work Phone: Serum or plasma albumin/glob ulin mass ratioon 11-04-2021 Albumin/Globulin [Mass ratio] 1.1 {ratio} 0.9-2.4 [facility] Work Phone: Serum or plasma calcium sam urement (mass/volume)on 11-04-2021 Calcium [Mass/Vol] 8.7 mg/dL 8.5-10.1 [facility] Work Phone: Serum or plasma cholesterol in HDL measurement (mass/volume)on 11-04-2021 Cholesterol in HDL [Mass/Vol] 75 mg/dL [facility] Work Phone: Comment on above: The drugs N-Acetylcy steine and Metamizole may falsely depress this assay. Reference Range HDL <40 mg/dL Low HDL Cholesterol HDL >or= 60 mg/dL High HDL Cholesterol Serum or plasma cholesterol in VLDL measurement (mass/volume)on 11-04-2021 Cholesterol in VLDL [Mass/Vol] 10 mg/dL 5-40 [facility] Work Phone: Serum or plasma creatinine m easurement (mass/volume)on 11-04-2021 Creatinine [Mass/Vol] 0.83 mg/dL 0.70-1.30 [facility] Work Phone: Comment on above: The validity of the calculated GFR & GFRAA in patients over 70 years has not been determined. Clinical correlation is essential. Serum or plasma low density lipoprotein (LDL) cholesterol measurement (mass/volume)on 11-04-2021 Cholesterol in LDL [Mass/Vol] 78 mg/dL 0-130 [facility] Work Phone: Serum or plasma urea nitroge n measurement (mass/volume)on 11-04-2021 Urea nitrogen [Mass/Vol] 13 mg/dL 7-18 [facility] Work Phone: Thin prep Papanicolaou smear with manual screeningon 11-04-2021 Thin prep Papanicolaou smear with manual screening 18 U/L 15-37 [facility] Work Phone: Thin prep Papanicolaou smear with manual screening 2 5-15 [facility] Work Phone: Vital Signs Date Time Vital Sign Value Performing Clinician Faci lity 05-17-2023 11:16-0500 Body temperature 98.2 [degF] Dr. Clarita Vogel Work Phone: [facility] 05-17-2023 11:16-0500 Diastolic blood pressure 86 mm[Hg] Dr. Clarita Vogel Work Phone: [facility] 05-17-2023 11:16-0500 Heart rate 70 /min Dr. Clarita Vogel Work Phone: [facility] 05-17-2023 11:16-0500 Respiratory rate 14 /min Dr. Clarita Vogel Work Phone: [facility] 05-17-2023 11:16-0500 SaO2% (BldA) [Mass fraction] 97 % Dr. Clarita Vogel Work Phone: [facility] 05-17-2023 11:16-0500 Systolic blood pressure 156 mm[Hg] Dr. Clarita Vogel Work Phone: [facility] 04-21-2023 08:50-0500 Body height 175.[address] Clarita Vogel Work Phone: [facility] 04-21-2023 08:50-0500 Body mass index (BMI) [Ratio] 26.7 kg/m2 Dr. Clarita Vogel Work Phone: [facility] 04-21-2023 08:50-0500 Body temperature 97.6 [degF] Dr. Clarita Vogel Work Phone: [facility] 04-21-2023 08:50-0500 Body weight 82.[address] Clarita Vogel Work Phone: [facility] 04-21-2023 08:50-0500 Diastolic blood pressure 78 mm[Hg] Dr. Clarita Vogel Work Phone: [facility] 04-21-2023 08:50-0500 Heart rate 58 /min Dr. Clarita Vogel Work Phone: [facility] 04-21-2023 08:50-0500 Respiratory rate 16 /min Dr. Clarita Vogel Work Phone: [facility] 04-21-2023 08:50-0500 SaO2% (BldA) [Mass fraction] 96 % Dr. Clarita Vogel Work Phone: [facility] 04-21-2023 08:50-0500 Systolic blood pressure 133 mm[Hg] Dr. Clarita Vogel Work Phone: [facility] 04-08-2023 09:23-0400 Body height 175.[address] Clarita Vogel Work Phone: [facility] 04-08-2023 09:23-0400 Body mass index (BMI) [Ratio] 26.6 kg/m2 Dr. Clarita Vogel Work Phone: [facility] 04-08-2023 09:23-0400 Body weight 81.[address] Clarita Vogel Work Phone: [facility] 04-08-2023 09:23-0400 Diastolic blood pressure 77 mm[Hg] Dr. Clarita Vogel Work Phone: [facility] 04-08-2023 09:23-0400 Heart rate 64 /min Dr. Clarita Vogel Work Phone: [facility] 04-08-2023 09:23-0400 Respiratory rate 18 /min Dr. Clarita Vogel Work Phone: [facility] 04-08-2023 09:23-0400 Systolic blood pressure 132 mm[Hg] Dr. Clarita Vogel Work Phone: [facility] 10-21-2022 08:04-0400 Body height 175.[address] Clarita Vogel Work Phone: [facility] 10-21-2022 08:04-0400 Body mass index (BMI) [Ratio] 27.1 kg/m2 Dr. Clarita Vogel Work Phone: [facility] 10-21-2022 08:04-0400 Body temperature 97.5 [degF] Dr. Clarita Vogel Work Phone: [facility] 10-21-2022 08:04-0400 Body weight 83.[address] Clarita Vogel Work Phone: [facility] 10-21-2022 08:04-0400 Diastolic blood pressure 73 mm[Hg] Dr. Clarita Vogel Work Phone: [facility] 10-21-2022 08:04-0400 Heart rate 57 /min Dr. Clarita Vogel Work Phone: [facility] 10-21-2022 08:04-0400 Respiratory rate 16 /min Dr. Clarita Vogel Work Phone: [facility] 10-21-2022 08:04-0400 SaO2% (BldA) [Mass fraction] 96 % Dr. Clarita Vogel Work Phone: [facility] 10-21-2022 08:04-0400 Systolic blood pressure 115 mm[Hg] Dr. Clarita Vogel Work Phone: [facility] 04-09-2022 09:22-0400 Body temperature 96 [degF] Dr. Clarita Vogel Work Phone: [facility] Work Phone: 04-09-2022 09:22-0400 Body weight 81.[address] Clarita Vogel Work Phone: [facility] Work Phone: 04-09-2022 09:22-0400 Diastolic blood pressure 78 mm[Hg] Dr. Clarita Vogel Work Phone: [facility] Work Phone: 04-09-2022 09:22-0400 Heart rate 68 /min Dr. Clarita Vogel Work Phone: [facility] Work Phone: 04-09-2022 09:22-0400 Respiratory rate 18 /min Dr. Clarita Vogel Work Phone: [facility] Work Phone: 04-09-2022 09:22-0400 Systolic blood pressure 134 mm[Hg] Dr. Clarita Vogel Work Phone: [facility] Work Phone: 03-19-2022 10:15-0400 Body height 175.[address] Clarita Vogel Work Phone: [facility] Work Phone: 03-19-2022 10:15-0400 Body mass index (BMI) [Ratio] 26.7 kg/m2 Dr. Clarita Vogel Work Phone: [facility] Work Phone: 03-19-2022 10:15-0400 Body weight 82.[address] Clarita Vogel Work Phone: [facility] Work Phone: 03-19-2022 10:15-0400 Diastolic blood pressure 64 mm[Hg] Dr. Clarita Vogel Work Phone: [facility] Work Phone: 03-19-2022 10:15-0400 Heart rate 68 /min Dr. Clarita Vogel Work Phone: [facility] Work Phone: 03-19-2022 10:15-0400 Respiratory rate 16 /min Dr. Clarita Vogel Work Phone: [facility] Work Phone: 03-19-2022 10:15-0400 Systolic blood pressure 130 mm[Hg] Dr. Clarita Vogel Work Phone: [facility] Work Phone: 03-13-2022 09:32-0400 Body mass index (BMI) [Ratio] 26.9 kg/m2 Dr. Clarita Vogel Work Phone: [facility] Work Phone: 03-13-2022 09:32-0400 Body temperature 98 [degF] Dr. Clarita Vogel Work Phone: [facility] Work Phone: 03-13-2022 09:32-0400 Body weight 82.[address] Clarita Vogel Work Phone: [facility] Work Phone: 03-13-2022 09:32-0400 Diastolic blood pressure 60 mm[Hg] Dr. Clarita Vogel Work Phone: [facility] Work Phone: 03-13-2022 09:32-0400 Heart rate 74 /min Dr. Clarita Vogel Work Phone: [facility] Work Phone: 03-13-2022 09:32-0400 Respiratory rate 15 /min Dr. Clarita Vogel Work Phone: [facility] Work Phone: 03-13-2022 09:32-0400 SaO2% (BldA) [Mass fraction] 98 % Dr. Clarita Vogel Work Phone: [facility] Work Phone: 03-13-2022 09:32-0400 Systolic blood pressure 120 mm[Hg] Dr. Clarita Vogel Work Phone: [facility] Work Phone: 02-24-2022 10:06-0400 Body mass index (BMI) [Ratio] 26.2 kg/m2 Dr. Clarita Vogel Work Phone: [facility] Work Phone: 02-24-2022 10:06-0400 Body temperature 97.9 [degF] Dr. Clarita Vogel Work Phone: [facility] Work Phone: 02-24-2022 10:06-0400 Body weight 82.[address] Clarita Vogel Work Phone: [facility] Work Phone: 02-24-2022 10:06-0400 Diastolic blood pressure 78 mm[Hg] Dr. Clarita Vogel Work Phone: [facility] Work Phone: 02-24-2022 10:06-0400 Heart rate 67 /min Dr. Clarita Vogel Work Phone: [facility] Work Phone: 02-24-2022 10:06-0400 Respiratory rate 16 /min Dr. Clarita Vogel Work Phone: [facility] Work Phone: 02-24-2022 10:06-0400 SaO2% (BldA) [Mass fraction] 98 % Dr. Clarita Vogel Work Phone: [facility] Work Phone: 02-24-2022 10:06-0400 Systolic blood pressure 136 mm[Hg] Dr. Clarita Vogel Work Phone: [facility] Work Phone: Encounters Encounter Date Encounter Type Care Provider Facility Start: 10-05-2024 End: 10-05-2024 ambulatory Danielle Chery NP Facility:[facility] [place] [place] Start: 07-03-2024 End: 07-03-2024 ambulatory Clarita Vogel Facility:[facility] [place] [place] Start: 06-02-2024 End: 06-02-2024 ambulatory CH1 REGGIEJA Facility:[facility] Start: 05-29-2024 End: 05-29-2024 ambulatory Clarita Vogel Facility:[facility] Start: 05-23-2024 End: 05-23-2024 ambulatory Clarita Vogel Facility:[facility] Start: 04-11-2024 End: 04-11-2024 ambulatory Beto Jane Facility:[facility] Start: 03-29-2024 End: 03-29-2024 ambulatory Clarita Vogel Facility:[facility] Start: 02-17-2024 End: 02-17-2024 ambulatory CH1 BOLTJA Facility:[facility] Start: 01-24-2024 End: 01-24-2024 ambulatory Clarita Vogel Facility:[facility] Start: 11-29-2023 End: 11-29-2023 ambulatory Clarita Vogel Facility:[facility] Start: 11-22-2023 End: 11-22-2023 ambulatory JEYSON GALAN Facility:[facility] Start: 10-07-2023 End: 10-07-2023 ambulatory Danielle Chery YIMI Facility:[facility] [place] [place] Start: 06-01-2023 End: 06-01-[address] Clarita Vogel Work Phone: [facility] Work Phone: Start: 06-01-2023 End: 06-01-[address] Clarita Vogel Work Phone: [facility] Work Phone: Start: 05-17-2023 End: 05-17-[address] Clarita Vogel Work Phone: [facility] Work Phone: Start: 05-17-2023 End: 05-17-[address] Clarita Vogel Work Phone: [facility] Work Phone: Start: 04-21-2023 End: 04-21-[address] Clarita Vogel Work Phone: [facility] Work Phone: Start: 04-13-2023 End: 04-13-[address] Clarita Vogel Work Phone: [facility] Work Phone: Start: 04-13-2023 End: 04-13-[address] Clarita Vogel Work Phone: [facility] Work Phone: Start: 04-08-2023 End: 04-08-[address] Clarita Vogel Work Phone: [facility] Work Phone: Start: 03-18-2023 End: 03-18-[address] Clarita Vogel Work Phone: [facility] Work Phone: Start: 03-18-2023 End: 03-18-[address] Clarita Vogel Work Phone: [facility] Work Phone: Start: 03-01-2023 Non-patient / Non-visit Dr. Swati Vogel Work Phone: [facility] Work Phone: Start: 02-26-2023 Non-patient / Non-visit Dr. Swati Vogel Work Phone: [facility] Start: 02-25-2023 End: 02-25-[address] [facility] Start: 02-25-2023 Non-patient / Non-visit Dr. Swati Vogel Work Phone: [facility] Start: 10-27-2022 End: 10-27-[address] Clarita Vogel Work Phone: [facility] Work Phone: Start: 10-27-2022 End: 10-27-[address] Clarita Vogel Work Phone: [facility] Start: 10-21-2022 End: 10-21-[address] Clarita Vogel Work Phone: [facility] Start: 10-14-2022 End: 10-14-2022 ambulatory [facility] Work Phone: Start: 10-14-2022 End: 10-14-2022 Patient encounter procedure [facility] Start: 04-09-2022 End: 04-09-[address] Clarita Vogel Work Phone: [facility] Start: 04-06-2022 End: 04-06-[address] Clarita Vogel Work Phone: [facility] Work Phone: Start: 04-06-2022 End: 04-06-[address] Clarita Vogel Work Phone: [facility] Start: 03-19-2022 End: 03-19-[address] Clarita Vogel Work Phone: [facility] Start: 03-13-2022 End: 03-13-[address] Clarita Vogel Work Phone: [facility] Start: 02-25-2022 End: 02-25-[address] Clarita Vogel Work Phone: [facility] [place] Start: 01-07-2022 End: 01-07-[address] Clarita Vogel Work Phone: [facility] Start: 11-04-2021 End: 11-04-2021 [facility] Procedure Procedure Detail Performing Clinician Start: 06-01-2023 CT of chest without contrast Dr. Clarita Vogel Work Phone: Start: 05-17-[address] Susan Vogel Work Phone: Start: 02-25-2023 Radionuclide imaging of perfusion of myocardium under exercise stress Dr. Clarita Vogel Work Phone: Start: 10-27-2022 CT of chest without contrast Dr. Clarita Vogel Work Phone: Start: 10-21-2022 Plain chest X-ray Dr. Nenita Vogel Work Phone: Start: 03-13-2022 Plain x-ray of hand Dr. Clarita Vogel Work Phone: Plan of Treatment Date Care Activity Detail Author Start: 04-21-2023 Patient referral [facility] Work Phone: Patient referral [facility] Work Phone: T4 free measurement [facility] Work Phone: Thyroid stimulating hormone measurement [facility] Work Phone: Triiodothyronine, fr ee measurement [facility] Work Phone: Immunizations Immunization Date Immunization Notes Care Provider Fa cility 03-01-2021 Covid (Pfizer) [facility] 02-19-2021 influenza, injectabl e, quadrivalent, preservative free Dr. Clarita Vogel Work Phone: [facility] 02-19-2021 influenza, seasonal, injectable [facility] 08-26-2020 Covid (Pfizer) [facility] 08-05-2020 Covid (Pfizer) [facility] 06-07-2018 zoster vaccine recombinant [facility] 04-07-2018 zoster vaccine recombinant [facility] 03-07-2013 pneumococcal conjuga te vaccine, 13 valent [facility] 03-07-2010 pneumococcal polysaccharide vaccine, 23 valent [facility] 01-06-2008 tetanus toxoid, redu meir diphtheria toxoid, and acellular pertussis vaccine, adsorbed [facility] Payers Date Payer Category [employer]ayer [employer] ( and others) [id number] 2023 Self-pay [id number] 2010 Medicare [id number] [address] [place] [address] [id number] Unknown [id number] Unknown [id number] Unknown [id number] Unknown [id number] Unknown [id number] Unknown [id number] Unknown [id number] Unknown [id number] Unknown [id number] Unknown [id number] Unknown [id number] Social History Date Type Detail Facility Start: 05-07-2021 End: 05-17-2023 Tobacco smoking status [facility] Unknown if ever smoked [facility] Start: 1945 Sex Assigned At Male 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 Skin lesion acute Hyperlipidemia chronic [facility] Work Phone: Evaluation note Note Date & Type Note Facility Evaluation note Diagnosis Onset Date GERD (gastroesophageal reflux disease) acute History of asbestos exposure acute Hypothyroidism acute Lung crackles acute [facility] Work Phone: Evaluation note Note Date & Type Note Facility Evaluation note Diagnosis Onset Date Chest discomfort acute Vasovagal syncope acute Hyperlipidemia chronic [facility] Work Phone: Evaluation note Note Date & Type Note Facility Evaluation note Diagnosis Onset Date Chest discomfort acute Vasovagal syncope acute Hyperlipidemia chronic BPH (benign prostatic hyperplasia) acute GERD (gastroesophageal reflux disease) acute History of asbestos exposure acute Hypothyroidism acute Lung crackles acute Hyperlipidemia chronic Left ankle sprain acute [facility] Work Phone: Chief Complaint and Reason for Visit Chief Complaint E ORDERS Chief Complaint NEED LAB ORDER Lump in pelvic area left hand injury XRAY 1 Y FU E ORDERS 6 M FU Reason for Visit Scrotal mass Contusion of left hand, initial encounter Mallet deformity of left little finger Hypothyroidism Vasovagal syncope Hyperlipidemia Hypothyroidism Mallet deformity of left little finger Skin lesion Hyperlipidemia Chief Complaint E ORDERS X 2 DAYS Chief Complaint E ORDERS X 2 DAYS 6 M FU CRACKLES Reason for Visit GERD (gastroesophage al reflux disease) History of asbestos exposure Hypothyroidism Lung crackles Chief Complaint OTHER CHEST PAIN OTHER CHEST PAIN OTHER CHEST PAIN Amb Documentation Chief Complaint OTHER CHEST PAIN OTHER CHEST PAIN OTHER CHEST PAIN Amb Documentation FU PER L.LORSON eorders Reason for Visit Chest discomfort Vasovagal syncope Hyperlipidemia Chief Complaint FU PER L.LORSON eorders 6 M FU LEFT ANKLE PAIN/INJURY EORDER LUNG SCARRING, ASBESTOS EXPOSURE *COMPARE 10/2022* Reason for Visit Chest discomfort Vasovagal syncope Hyperlipidemia BPH (benign prostatic hyperplasia) GERD (gastroesophageal reflux disease) History of asbestos exposure Hypothyroidism Lung crackles Hyperlipidemia Left ankle sprain Chief Complaint OTHER CHEST PAIN OTHER CHEST PAIN OTHER CHEST PAIN Amb Documentation FU PER L.LORSON eorders 6 M FU LEFT ANKLE PAIN/INJURY EORDER Reason for Visit Chest discomfort Vasovagal syncope Hyperlipidemia BPH (benign prostatic hyperplasia) GERD (gastroesophageal reflux disease) History of asbestos exposure Hypothyroidism Lung crackles Hyperlipidemia Left ankle sprain Family History No Family History Records Found Relationship Condition Age at Onset Recorded Date/T alicia father Coronary artery disease Unknown Presence of cardiac pacemaker Unknown Heart valve disease Unknown Disorder of liver Unknown mother Coronary artery disease Unknown History of coronary artery bypass surgery Unknown grandmother Malignant neoplasm of breast Unknown sister Malignant neoplasm Unknown Summary Purpose Advance Directives No Advanced Directives Records Found Additional Source Comments Goals (unrecognized section and content) Goals may be documented in a n alternate sectionGoals may be documented in an alternate sectionGoals may be documented in an alternate sectionGoals may be documented in an alternate sectionGoals may be documented in an alternate sectionGoals may be documented in an alternate sectionGoals may be documented in an alternate sectionGoals may be documented in an alternate section Care Teams (unrecognized sec tion and content) Team Status: Active Member Role Status Dates Dr. Jorge Jensen MD Family Provider Active Dr. Clarita Vogel MD Primary Care Provider Active Team Status: Inactive Member Role Status Dates Dr. Clarita Vogel MD Primary Care Pro vider, Attending Provider, Referring Provider Active Team Status: Inactive Member Role Status Dates Dr. Clarita Vogel MD Primary Care Provider, Attendi ng Provider Active Team Status: Active Member Role Status Dates Dr. Clarita Vogel MD Primary Care Provider Active Dr. Alberto Peoples MD Attending Provider, Referring Provider, Other Provider Active Team Status: Active Member Role Status Dates Dr. Clarita Vogel MD Primary Care Provider Active Joshua Mcdonnell ELECTRIC DRILL OPERATOR, ELECTRIC DRILL OPERATOR-C Attending Provider Active Team Status: Active Member Role Status Dates Dr. Clarita Vogel MD Primary Care Provider Active Dr. Alberto Peoples MD Attending Provider, Referring Pro vider Active Team Status: Inactive Member Role Status Dates Dr. Clarita Vogel MD Primary Care Provider Active Dr. Beto Jane MD Attending Provider Active Team Status: Inactive Member Role Status Dates Dr. Clarita Vogel MD Primary Care Provider Active Dr. Alberto Peoples MD Attending Provider, Referring Pro vider Active Team Status: Inactive Member Role Status Dates Dr. Clarita Vogel MD Primary Care Provider, Referri ng Provider Active Danielle Chery ELECTRIC DRILL OPERATOR, ELECTRIC DRILL OPERATOR-C Attending Provider Active Team Status: Inactive Member Role Status Dates Dr. Clarita Vogel MD Primary Care Provider, Referri ng Provider Active Kevin JUARES, PA Attending Provider Active Team Status: Inactive Member Role Status Dates Dr. Clarita Vogel MD Primary Care Provider Active ROGE TUTTLE Attending Provider, Referring Prov ider Active Team Status: Inactive Member Role Status Dates Dr. Clarita Vogel MD Primary Care Provider Active Kevin JUARES, PA Attending Provider, Referring Pr ovider Active (unrecognized sect ion and content) No Status Records Found INFORMATION SOURCE (unrecogn ized section and content) DATE CREATED AUTHOR 10/05/2024 [facility] FOR RECORDS PERTAINING TO PATIENTS WHO ARE OR HAVE BEEN ENROLLED IN A CHEMICAL DEPENDENCY/SUBSTANCEABUSE PROGRAM, SOME INFORMATION MAY BE OMITTED. This clinical summary was aggregated from multiple sources. Caution should be exercised in using it in the provision of clinical care. This summary normalizes information from multiple sources, and as a consequence, information in this document may materially change the coding, format and clinical context of patient data. In addition, data may be omitted in some cases. CLINICAL DECISIONS SHOULD BE BASED ON THE PRIMARY CLINICAL RECORDS. [facility]. provides no warranty or guarantee of the accuracy or completeness of information in this document.
[2024-11-20 07:55] LABS: Absolute Lymphocyte Count 2.29 X10^3/uL (0.83-4.51); Absolute Neutrophil Count 3.2 X10^3/uL (2.0-7.7); Basophil# 0.07 X10^3/uL; Eosinophil# 0.37 X10^3/uL; Eosinophils% 5.5 % (0-5); Hematocrit 40.3 % (40-54); Hemoglobin 14.3 g/dL (13.0-16.5); Lymphocyte # 2.29 X10^3/ul (0.83-4.51); Lymphocyte % 34.1 % (19-41); Mean Corp Hgb Conc 35.5 g/dL (32-36); Mean Corpuscular Volume 93.1 fL (80-94); Mean Platelet Vol. 9.7 fl (6.2-12.0); Monocyte# 0.74 X10^3/uL; NRBC Flagged by Analyzer 0 % (0-5); Neutrophil # 3.22 X10^3/uL (2.7-7.7); Neutrophil % 48.1 % (47-70); Platelet Count 245 K/mm3 (150-450); RBC Distribution Width CV 13.2 % (11.6-14.6); RBC Distribution Width SD 45.1 fl (35.1-43.9); Red Blood Count 4.33 M/mm3 (4.6-6.2); White Blood Count 6.7 K/mm3 (4.4-11.0)
[2024-11-20 18:13] LABS: ALB/GLOB Ratio 1.5 RATIO (0.9-2.4); AST(SGOT) 23 U/L (<=37); Alanine Aminotransfer ALT/SGPT 18 U/L (<=46); Albumin, Serum 4.2 g/dL (3.4-4.8); Alkaline Phosphatase 70 U/L (40-129); Anion Gap 8 (5-15); BUN 14 mg/dL (4-19); BUN/Creat Ratio 16.2 RATIO (10-20); Calcium,Total 9.2 mg/dL (7.6-11.0); Chloride 105 mmol/L (98-108); Creatinine, Serum 0.84 mg/dL (0.70-1.20); EST Glomerular Filtration Rate 89 (>60); Globulin 2.7 g/dL (2.2-4.2); Glucose 90 mg/dL (70-99); Potassium 3.8 mmol/L (3.3-5.1); Sodium Level 140 mmol/L (133-145)
[2024-11-21 15:54] LABS: Cholesterol 177 mg/dL (<=200); High Density Lipoprotein 72 mg/dL; Low Density Lipoprotein Calc. 88 mg/dL; Total Bilirubin 0.92 mg/dL (0.00-1.30); Triglycerides 84 mg/dL; Very Low Density Lipoprotein 17 mg/dL (5-40); cholesterol:hdl ratio screen 2.45
== END | disposition home or self-care (01) ==
PROVIDERS: PCP Internal Medicine; Referring Provider Internal Medicine; Visit Provider Internal Medicine
DX: E78.5 Hyperlipidemia, unspecified (principal); E03.9 Hypothyroidism, unspecified; Z13.220 Encounter for screening for lipoid disorders
CPT/HCPCS: 36415; 80053; 80061; 84439; 84443; 84481; 85025

== ENCOUNTER 2025-01-15 10:00 | Outpatient (RCR) | payer MEDICARE, OTHER, SELFPAY ==
--- NOTE | 2024-12-25 12:31 | HP.PTEVAL_ITS ---
Patient's Visit Information Visit Information Visit Information: SHANKAR CHOW is a 79 year old M referred to Physical Therapy by Dr. Clarita Vogel MD with a diagnosis of Bicipital tendonitis, right shoulder. Date of Evaluation: 12/25/24 Physical Therapist: Star Alexander PT, Cert MDT, OCS Visit Plan Frequency: 2x /Week Duration: 3 Weeks Plan: Physical therapy interventions Postural ex's ,RTC /SCAPUALR STRENGTHENING ,AND ACTIVITY MODIFICATIONS Subjective Subjective: A 79 year old male presents with right sided bicep pain that started about 3 weeks ago in bicep that progressed up into shoulder. Pt saw on Wednesday and was referred to PT. Pt has not received any imaging. Pt pain was severe up until the last few days where it has reduced but not gone away. Pt pain is present at rest but worse with reaching across body, overhead, and lifting objects. Pt sleeps on his back or left side because laying on the right side makes the pain worse. Pt reports pain was waking him up at night initially, but is sleeping better now that pain has reduced. Pt denies numbness or tingling and no obvious weakness as of now. Occupation: Retired [employer] Hobbies: Host reunions, sail often with 2 kids Pain Right Shoulder: Pain Intensity (Out of 10): 1 Pain Intensity Range: 0 and 7 Objective Objective: Posture: Forward head posture ,Thoracic kyphosis Palpation: Tenderness to palpation on right side proximal bicep tendon insertions UE ROM: WNL AROM shoulder flexion 160 degrees ,160 degrees ,ER 90 ,IR UE MMT: grossly 4+/5 NEURO: inatct Special Tests R Shoulder Empty Can - SS: Negative R Shoulder Neer - Impingement: Positive R Shoulder Hinson Parag - Impingement: Negative R Shoulder O'[place]riens - SLAP/A-C: Negative Balance/Special Test Scores Quick DASH Score: 31.8175 Goals Goal 1:: Patient to decrease pain to improve quality of life and participation in leisure activities. Goal Time Frame: 2-4 Weeks Goal 2:: Patient to improve postural strength to improve pain and prevent further injury of shoulder/bicep. Goal Time Frame: 2-4 Weeks Goal 3:: Patient to improve gross shoulder strength to stabilize the joint and reduce pain for ease with functional activties. Goal Time Frame: 2-4 Weeks Goal 4:: Patient to improve Quick DASH score by 10 points to improve quality of life. Goal Time Frame: 2-4 Weeks Rehabilitation Potential Physical Therapy Diagnosis: Patient presents with signs and symptoms consistent with right sided bicep tendonitis and poor postural strength. Rehabilitation Potential: Good Anticipated Interventions Patient/Client Instruction: Educate patient on: Condition, Plan of Care and Benefits of Fitness Program For the Purpose of:: To reduce risk of recurrence, To improve safety, To foster healthy habits, To improve decision making, To improve self management, To prevent re-injury and To improve tolerance to ADL's Therapeutic Exercise to Include: Strength training, Body mechanics, Postural training, Active ROM and Scapular Strength/Stabilization For the Purpose of:: To decrease pain, To increase ROM, To improve ability to perform ADL's, To increase tolerance to activity/condition/position, To improve performance and independence with ADL's, To improve safety and To prevent re- injury Text: Thank you for the opportunity to evaluate your patient. For Medicare and Medicare HMO plans, please review the plan of care and approve it. It will need to be FAXED BACK to us at [phone] for Medicare purposes. For Medicare only, by signing this I certify the plan of care. Please let me know if there are questions or concerns regarding this plan of care. Physician Signature: Date:
--- NOTE | 2025-01-15 10:19 | HP.PTDCSUM ---
Discharge Summary D/C summary: It has been my pleasure to treat SHANKAR CHOW referred by Dr. Clarita Vogel MD, with the diagnosis of Bicipital tendonitis, right shoulder for a total of 7 visit(s). Discharge Date: 01/15/25 Please see the following information for a summary of their discharge status. Subjective Subjective: Doing well Full ROM ,no pain Able to left -No formal visits witH DR Lee Right Shoulder: Pain Intensity (Out of 10): 1 Overall Improvement % Improvement: 100 Objective Objective/Function: Posture: Forward head posture ,Thoracic kyphosis Palpation: Tenderness to palpation on right side proximal bicep tendon insertions UE ROM: WNL AROM shoulder flexion 160 degrees ,170 degrees ,ER 90 ,IR UE MMT: grossly 4+/5 Goals Goal 1:: Patient to decrease pain to improve quality of life and participation in leisure activities. Goal Progress: Goal Met Goal 2:: Patient to improve postural strength to improve pain and prevent further injury of shoulder/bicep. Goal Progress: Goal Met Goal 3:: Patient to improve gross shoulder strength to stabilize the joint and reduce pain for ease with functional activties. Goal Progress: Goal Met Goal 4:: Patient to improve Quick DASH score by 10 points to improve quality of life. Goal Progress: Goal Met Plan Plan: D/C TO HEP D/C Information Discharge Comments: HEP d/c sentence: If there are questions or concerns regarding this patient's physical therapy, please feel free to call me at [phone]. Thank you for the referral of this patient. Sincerely, Star Alexander, PT, Cert MDT, OCS Balance/Gait/Functional tests Balance/Special Test Scores Quick DASH Score: 2.2725 Improvement % Improvement: 100
== END 2025-01-15 11:02 | disposition home or self-care (01) ==
LOC: PT 10:00
PROVIDERS: PCP Internal Medicine; Referring Provider Internal Medicine; Visit Provider Internal Medicine
DX: M75.21 Bicipital tendinitis, right shoulder (principal)
CPT/HCPCS: 97110; 97161; 97530

== ENCOUNTER 2025-04-18 08:53 | Outpatient (CLI) | payer MEDICARE, OTHER, SELFPAY ==
[2025-04-18 10:51] LABS: PSA,Total- Diagnostic 2.49 ng/mL (0.00-4.00)
== END 2025-04-18 23:59 | disposition home or self-care (01) ==
LOC: LAB 08:56
PROVIDERS: PCP Internal Medicine; Referring Provider Nurse Practitioner; Visit Provider Nurse Practitioner
DX: R97.20 Elevated prostate specific antigen [PSA] (principal)
CPT/HCPCS: 36415; 84153

== ENCOUNTER → 2025-05-15 | Outpatient (CLI) | payer MEDICARE, OTHER, SELFPAY ==
--- OUTSIDE RECORDS SUMMARY | 2025-05-15 06:58 | XMS RPT_ITS | CCD ---
Author Organization [facility] CliniSyla Care Team Providers Care Workplace Trainer And Assessor Name Role Phone Dr. Clarita Vogel Primary Care Provider Dr. Clarita Vogel Attending Provider [phone] Dr. Clarita Vogel Referring Provider 1([facility]) MOR Do Attending Provider Dr. Albetro Peoples Attending Provider 1([facility])[phone] Dr. Giles Olguin Attending Provider [phone] Dr. Clarita Vogel Primary Care Provider Dr. Clarita Vogel Attending Provider [phone] Dr. Clarita Vogel Primary Care Provider Dr. Alberto Peoples Attending Provider [phone]([facility])-[phone] Alberto Peoples Referring Provider [phone] Dr. Alberto Peoples Other Provider Kecia SEED EXPERT, SEED EXPERT-C Joshua Diallo Attending Provider Dr. Clarita Vogel Primary Care Provider Dr. Alberto Peoples Attending Provider [phone] Alberto Peoples Referring Provider [phone] Dr. Alberto Peoples Other Provider Kecia SEED EXPERT, SEED EXPERT-Mateus Diallo Attending Provider Dr. Clarita Vogel Referring Provider Vik GELLER, SEED EXPERT-C Danielle Attending Provider Dr. Clarita Vogel Primary Care Provider Dr. Clarita Vogel Attending Provider Benji JUARES, MOR Becerril Attending Provider Lela NESS, Dr. Otto Primary Care Provider Lela NESS, Dr. Otto Referring Provider Danielle Shultz Attending Provider Lela NESS, Dr. Otto Attending Provider Lela, Clarita Primary Care Unavailable Lela, Clarita Attending Unavailable Lela, Clarita Attending Unavailable Lela, Clarita Primary Care Unavailable Danielle Chery NP Attending Unavailable Lela, Clarita Referring Unavailable Lela, Clarita Primary Care Unavailable Lela, Clarita Attending Unavailable Lela, Clarita Primary Care Unavailable Lela, Clarita Primary Care Unavailable Lela, Clarita Attending Unavailable Lela, Clarita Attending Unavailable PODUGU, RAD Referring Unavailable Lela, Clarita Primary Care Unavailable Lela, Clarita Referring Unavailable Lela, Clarita Primary Care Unavailable Lela, Clarita Attending Unavailable Lela, Clarita Referring Unavailable Lela, Clarita Attending Unavailable Lela, Clarita Primary Care Unavailable Lela, Clarita Primary Care Unavailable [place], Lina Attending Unavailable [place], Lina Referring Unavailable Lela, Clarita Referring Unavailable Lela, Clarita Primary Care Unavailable Lela, Clarita Attending Unavailable Allergies Allergy Classification Reported Allergen(s) Allergy Type Date of Onset Reaction(s) Facility (12 sources) ezetimibe Drug Allergy 1 [facility] (13 sources) Sulfonamides (Antibiotic); Translations: [Sulfa (Sulfonamide Antibiotics)] Propensity to adverse reactions 1 [facility] (1 source) ezetimibe Drug Allergy 5 [facility] Repository Medications Current Medications Medication Drug Class(es) Dates Sig (Normalized) Sig (Original) aspirin 81 mg delayed release oral tablet (12 sources) Platelet Aggregation Inhibitor, Nonsteroidal Anti-inflammatory Drug Start: 06-08-2017 take 1 tablet by mouth once daily Aspirin 81 mg tablet,delayed release (DR/EC) Active 81 mg PO daily June 08, 2017 1:00am finasteride 5 mg oral tablet (12 sources) 5-alpha Reductase Inhibitor Start: 06-08-2017 take 1 tablet by mouth once daily Finasteride 5 mg tablet Active 5 mg PO daily June 08, 2017 1:00am levothyroxine sodium 0.05 mg oral tablet (20 sources) l-Thyroxine Start: 12-02-2023 End: 12-18-2024 take 1 tablet by mouth once daily Levothyroxine 50 mcg tablet Active 50 ug PO DAILY 90 3 December 18, 2024 10:27am Start: 11-29-2023 End: 12-02-2023 Levothyroxine 50 mcg tablet Discontinued 25 ug PO DAILY 90 November 29, 2023 8:54am December 02, 2023 2:45pm Start: 01-27-2021 End: 11-29-2023 take 1 tablet by mouth once daily Levothyroxine 25 mcg tablet Discontinued 25 ug PO DAILY 90 3 July 15, 2023 1:00pm November 29, 2023 8:54am Start: 06-08-2017 End: 01-27-2021 take 1 capsule by mouth once daily Levothyroxine 25 mcg capsule Discontinued 25 ug PO daily 0 June 08, 2017 1:00am January 27, 2021 4:38pm Multivitamin preparation (8 sources) Start: 06-08-2017 take 1 tablet by mouth once daily Multivitamin Active 1 TABLET PO daily June 08, 2017 8:21pm Start: 06-08-2017 take 1 tablet by arya th once daily Multivitamin Active 1 TABLET PO daily June 08, 2017 1:00am Start: 06-08-2017 take 1 tablet by arya th once daily Multivitamin Active 1 TABLET PO daily June 08, 2017 12:00am Multivitamin tablet (4 sources) Start: 06-08-2017 Multivitamin t ablet Active 1 {tbl} PO daily June 08, 2017 1:00am Completed/Discontinued Medications Medication Drug Class(es) Dates Sig (Normalized) Sig (Original) Antiarthritic Combination No.2 (Glucosamine-Chondro itin) 900 mg tablet (12 sources) Start: 06-08-2017 End: 06-13-2018 take 1 tablet by mouth once daily Antiarthritic Combination No.2 (Glucosamine-Chondr oitin) 900 mg tablet Discontinued 900 MG PO daily June 08, 2017 8:24pm June 13, 2018 9:38am Start: 06-08-2017 End: 06-13-2018 take 1 tablet by mouth once daily Antiarthritic Combination No.2 (Glucosamine-Chondroitin) 900 mg tablet Discontinued 900 mg PO daily 0 June 08, 2017 1:00am June 13, 2018 9:38am Start: 06-08-2017 End: 06-13-2018 take 1 tablet by mouth once daily Antiarthritic Combination No.2 (Glucosamine-Chondroitin) 900 mg tablet Discontinued 900 mg PO daily June 08, 2017 1:00am June [...] 2018 8:38am atorvastatin 40 mg oral tablet (12 sources) HMG-CoA Reductase Inhibitor Start: 06-08-2017 End: 06-13-2018 take 1 tablet by mouth once daily Atorvastatin 40 mg tablet Discontinued 40 mg PO daily June 08, 2017 1:00am June 13, 2018 9:37am cetirizine hydrochloride 10 mg oral tablet (20 sources) Histamine-1 Receptor Antagonist Start: 02-07-2020 End: 11-11-2021 take 1 tablet by mouth once daily as needed Cetirizine 10 mg tablet Discontinued 10 mg PO daily as needed February 07, 2020 3:59pm November 11, 2021 8:08am Start: 06-08-2017 End: 02-07-2020 take 5 mg by mouth once daily as needed Cetirizine 10 mg tablet Discontinued 5 mg PO daily as needed June 08, 2017 1:00am February 07, 2020 3:59pm Start: 06-08-2017 End: 02-07-2020 take 5 mg by mouth once daily Cetirizine Discontinued 5 MG PO daily June 08, 2017 12:00am February 07, 2020 2:59pm cholecalciferol 0.025 mg oral capsule (12 sources) Vitamin D Start: 06-09-2017 End: 06-13-2018 take 1 capsule by mouth once Cholecalciferol (Vitamin D3) 1,000 unit capsule Discontinued 1000 U PO ONCE June 09, 2017 1:00am June 13, 2018 9:38am fluticasone propionate 0.05 mg/actuat metered dose nasal spray (20 sources) Corticosteroid Start: 06-08-2017 End: 04-08-2023 Fluticasone Propionate 50 mcg/actuation spray,suspension Discontinued 1 NMA INTRANASAL DAILY as needed October 21, 2022 8:05am April 08, 2023 9:25am administer into each nostril Start: 06-08-2017 End: 04-08-2023 take 1 spray(s) nasal route once daily Fluticasone Propionate Discontinued 1 SPRAY INTRANASAL DAILY October 21, 2022 7:05am April 08, 2023 8:25am administer into each nostril naproxen sodium 220 mg oral tablet (4 sources) Nonsteroidal Anti-inflammatory Drug Start: 07-03-2024 End: 11-27-2024 take 1 tablet by mouth every twelve hours as needed Naproxen Sodium (Aleve) 220 mg tablet Discontinued 220 mg PO Q12H as needed July 03, 2024 1:00am November 27, 2024 8:01am pravastatin sodium 40 mg oral tablet (20 sources) HMG-CoA Reductase Inhibitor Start: 06-13-2018 End: 05-29-2024 take 1 tablet by mouth once daily Pravastatin 40 mg tablet Discontinued 40 mg PO DAILY 90 May 24, 2023 12:35pm May 29, 2024 9:39am sildenafil 100 mg oral tablet (20 sources) Phosphodiesterase 5 Inhibitor Start: 06-08-2017 End: 09-06-2024 take 1 tablet by mouth once as needed Sildenafil (Viagra) 100 mg tablet Discontinued 100 mg PO ONCE as needed for sexual activity 20 September 01, 2023 3:03pm September 06, 2024 12:03pm Problems Active Problems Problem Classification Problem Date Documented Date Episodic/Chronic Disorders of lipid metabolism (20 sources) Hyperlipidemia; Translations: [Hyperlipidemia, unspecified] Onset: 11-23-2024 Chronic Esophageal disorders (17 sources) Gastroesophageal reflux disease; Translations: [Gastro-esophageal reflux disease without esophagitis] 10-15-2020 Chronic Hyperplasia of prostate (13 sources) Benign prostatic hyperplasia; Translations: [Benign prostatic hyperplasia without lower urinary tract symptoms] 10-21-2022 Chronic Nonspecific chest pain (11 sources) Chest discomfort; Translations: [Other chest pain] 02-03-2023 Episodic Other acquired deformities (11 sources) Mallet finger; Translations: [Mallet finger of left finger(s)] 03-13-2022 Episodic Other acquired deformities (2 sources) Mallet finger of left finger(s); Translations: [Mallet finger] Episodic Other circulatory disease (9 sources) Respiratory crackles; Translations: [Other specified symptoms and signs involving the circulatory and respiratory systems] 10-21-2022 Episodic Other circulatory disease (3 sources) Other specified symptoms and signs involving the circulatory and respiratory systems; Translations: [Abnormal chest sounds] 10-21-2022 Episodic Other connective tissue disease (8 sources) Pain in left arm; Translations: [Pain in left arm] 02-03-2023 Episodic Other connective tissue disease (4 sources) Popliteal bursitis; Translations: [Other bursitis of knee, unspecified knee] 03-29-2024 Episodic Other connective tissue disease (4 sources) Biceps tendinitis; Translations: [Bicipital tendinitis, right shoulder] 12-20-2024 Episodic Other lower respiratory disease (4 sources) Nodule of lung; Translations: [Solitary pulmonary nodule] 11-29-2023 Episodic Other male genital disorders (11 sources) Scrotal mass; Translations: [Other specified disorders of the male genital organs] 02-25-2022 Episodic Other male genital disorders (1 source) Other specified disorders of the male genital organs; Translations: [Other specified disorders of male genital organs] Episodic Other nervous system disorders (6 sources) Carpal tunnel syndrome of right wrist; Translations: [Carpal tunnel syndrome, right upper limb] 07-03-2024 Chronic Other non-epithelial cancer of skin (12 sources) History of malignant neoplasm of skin; Translations: [Personal history of other malignant neoplasm of skin] 10-15-2020 Episodic Other non-traumatic joint disorders (4 sources) Pain in right knee; Translations: [Right knee pain] 08-25-2023 Episodic Other nutritional; endocrine; and metabolic disorders (8 sources) Weight loss; Translations: [Abnormal weight loss] 11-05-2020 Episodic Other nutritional; endocrine; and metabolic disorders (4 sources) Weight decreased; Translations: [Abnormal weight loss] 11-05-2020 Episodic Other screening for suspected conditions (not mental disorders or infectious disease) (7 sources) Patient encounter status; Translations: [Encounter for screening for malignant neoplasm of colon] Onset: 04-18-2025 04-21-2023 Episodic Other skin disorders (11 sources) Skin lesion; Translations: [Disorder of the skin and subcutaneous tissue, unspecified] 04-09-2022 Episodic Other skin disorders (1 source) Disorder of the skin and subcutaneous tissue, unspecified; Translations: [Unspecified disorder of skin and subcutaneous tissue] Episodic Other upper respiratory disease (12 sources) Seasonal allergy; Translations: [Other seasonal allergic rhinitis] 10-15-2020 Chronic Residual codes; unclassified (11 sources) H/O: asbestos exposure; Translations: [Contact with and (suspected) exposure to asbestos] 10-21-2022 Episodic Residual codes; unclassified (3 sources) Contact with and (suspected) exposure to asbestos; Translations: [Personal history of contact with and (suspected) exposure to asbestos] 10-21-2022 Episodic Sprains and strains (8 sources) Sprain of ankle; Translations: [Sprain of unspecified ligament of left ankle, initial encounter] 05-17-2023 Episodic Superficial injury; contusion (12 sources) Contusion of hand; Translations: [Contusion of left hand, initial encounter] Episodic Syncope (20 sources) Vasovagal syncope; Translations: [Syncope and collapse] Episodic Thyroid disorders (20 sources) Hypothyroidism; Translations: [Hypothyroidism, unspecified] Onset: 05-29-2024 Chronic Unclassified (2 sources) Biceps tendinitis of right shoulder Unclassified (4 sources) M75.21 - Bicipital tendinitis, right shoulder Past or Other Problems Problem Classification Problem Date Documented Da te Episodic/Chronic Other connective tissue disease (1 source) Bicipital tendinitis, right shoulder; Translations: [Bicipital tendinitis, right shoulder] Onset: 01-15-2025 Episodic Other connective tissue disease (1 source) Other bursitis of knee, unspecified knee; Translations: [Other bursitis of knee, unspecified knee] Onset: 06-02-2024 Episodic Results Test Name Value Interpretation Reference Range Facility PSA,Total- [facility] 04-07 PSA, DIAGNOSTIC 2.49 ng/mL Normal 0.00-4.00 [facility] Comment on above: Result Comment: This test was performed using the [facility] tPSA method. Measured values of a patient??sample can vary depending on the testing procedure used. PSA values determined on patient samples by different testing procedures cannot be used interchangeably. If there is a change in PSA assays while monitoring therapy, sequential testing should be performed to confirm baseline values. Performed By: #### L [phone] #### [facility] [address] [place], [address] PT D/C Summary (1)on 025 PT D/C Summary (1) [facility] [place] [address] / REHABILITATION SERVICES DISCHARGE SUMMARY MR#: [id number] Acct: [id number] Name: SHANKAR CHOW Rep #: [id number] : 1945 79 From: Star Alexander PT, Cert. T, OCS Referring Dr.: Dr. Clarita Vogel MD Status: R EG RCR Insurance: MEDICARE PART A B FOR LIFE Discharge Summary D/C summary: It has been my pleasure to treat SHANKAR CHOW referred by Dr. Clarita Vogel MD, with the diagnosis of Bicipital tendonitis, right shoulder for a total of 7 visit(s). Discharge Date: 01/15/25 Please see the following information for a summary of their discharge status. Subjective Subjective: Doing well Full ROM ,no pain Able to left -No formal visits witH DR Lee Right Shoulder: Pain Intensity (Out of 10): 1 Overall Improvement % Improvement: 100 Objective Objective/Function: Posture: Forward head posture ,Thoracic kyphosis Palpation: Tenderness to palpation on right side proximal bicep tendon insertions UE ROM: WNL AROM shoulder flexion 160 degrees ,170 degrees ,ER 90 ,IR UE MMT: grossly 4+/5 Goals Goal 1:: Patient to decrease pain to improve quality of life and participation in leisure activities. Goal Progress: Goal Met Goal 2:: Patient to improve postural strength to improve pain and prevent further injury of shoulder/bicep. Goal Progress: Goal Met Goal 3:: Patient to improve gross shoulder strength to stabilize the joint and reduce pain for ease with functional activties. Goal Progress: Goal Met Goal 4:: Patient to improve Quick DASH score by 10 points to improve quality of life. Goal Progress: Goal Met Plan Plan: D/C TO HEP D/C Information Discharge Comments: HEP d/c sentence: If there are questions or concerns regarding this patient's physical therapy, please feel free to call me at [phone]. Thank you for the referral of this patient. Sincerely, Star Alexander PT, Cert MDT, OCS Balance/Gait/Functi onal tests Balance/Special Test Scores Quick DASH Score: 2.2725 Improvement % Improvement: 100 01/15/25 1051 CC: Dr. Clarita Vogel MD JLA Signed Normal [facility] Inital Evaluation (1) - PTon 12-25-2024 Inital Evaluation (1) - PT [facility] [address] [place] [address] / REHABILITATION SERVICES INITIAL EVALUATION MR#: [id number] Acct: [id number] Name: SHANKAR CHOW Rep #: [id number] : 1945 79 From: Dominick Galdamez PT. MD Baer, OCS Referring Dr.: Dr. Clarita Vogel MD Status: R EG RCR Insurance: MEDICARE PART A B FOR LIFE Patient's Visit Information Visit Information Visit Information: SHANKAR CHOW is a 79 year old M referred to Physical Therapy by Dr. Clarita Vogel MD with a diagnosis of Bicipital tendonitis, right shoulder. Date of Evaluation: 12/25/24 Physical Therapist: Star Alexander PT, Dominick NESST, OCS Visit Plan Frequency: 2x /Week Duration: 3 Weeks Plan: Physical therapy interventions Postural ex's ,RTC /SCAPUALR STRENGTHENING ,AND ACTIVITY MODIFICATIONS Subjective Subjective: A 79 year old male presents with right sided bicep pain that started about 3 weeks ago in bicep that progressed up into shoulder. Pt saw on Wednesday and was referred to PT. Pt has not received any imaging. Pt pain was severe up until the last few days where it has reduced but not gone away. Pt pain is present at rest but worse with reaching across body, overhead, and lifting objects. Pt sleeps on his back or left side because laying on the right side makes the pain worse. Pt reports pain was waking him up at night initially, but is sleeping better now that pain has reduced. Pt denies numbness or tingling and no obvious weakness as of now. 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 Hobbies: Host reunions, sail often with 2 kids Pain Right Shoulder: Pain Intensity (Out of 10): 1 Pain Intensity Range: 0 and 7 Objective Objective: Posture: Forward head posture ,Thoracic kyphosis Palpation: Tenderness to palpation on right side proximal bicep tendon insertions UE ROM: WNL AROM shoulder flexion 160 degrees ,160 degrees ,ER 90 ,IR UE MMT: grossly 4+/5 NEURO: inatct Special Tests R Shoulder Empty Can - SS: Negative R Shoulder Neer - Impingement: Positive R Shoulder Hinson Parag - Impingement: Negative R Shoulder O'Briens - SLAP/A-C: Negative Balance/Special Test Scores Quick DASH Score: 31.8175 Goals Goal 1:: Patient to decrease pain to improve quality of life and participation in leisure activities. Goal Time Frame: 2-4 Weeks Goal 2:: Patient to improve postural strength to improve pain and prevent further injury of shoulder/bicep. Goal Time Frame: 2-4 Weeks Goal 3:: Patient to improve gross shoulder strength to stabilize the joint and reduce pain for ease with functional activties. Goal Time Frame: 2-4 Weeks Goal 4:: Patient to improve Quick DASH score by 10 points to improve quality of life. Goal Time Frame: 2-4 Weeks Rehabilitation Potential Physical Therapy Diagnosis: Patient presents with signs and symptoms consistent with right sided bicep tendonitis and poor postural strength. Rehabilitation Potential: Good Anticipated Interventions Patient/Client Instruction: Educate patient on: Condition, Plan of Care and Benefits of Fitness Program For the Purpose of:: To reduce risk of recurrence, To improve safety, To foster healthy habits, To improve decision making, To improve self management, To prevent re-injury and To improve tolerance to ADL's Therapeutic Exercise to Include: Strength training, Body mechanics, Postural training, Active ROM and Scapular Strength/Stabilizat ion For the Purpose of:: To decrease pain, To increase ROM, To improve ability to perform ADL's, To increase tolerance to activity/condition/ position, To improve performance and independence with ADL' s, To improve safety and To prevent re-injury Text: Thank you for the opportunity to evaluate your patient. For Medicare and Medicare HMO plans, please review the plan of care and approve it. It will need to be FAXED BACK to us at [phone] for Medicare purposes. For Medicare only, by signing this I certify the plan of care. Please let me know if there are questions or concerns regarding this plan of care. Physician Signature: __Date: 12/25/24 1749 CC: Dr. Clarita Vogel MD CELESTE Signed Normal [facility] MR/BMS.IMBon 12-20-2024 MR/BMS.IMB [facility] [address] [place] [address] OFFICE VISIT Date of Service: 12/20/24 MR#: [id number] Acct: [id number] Name: SHANKAR CHOW Rep #: [id number] : 1945 Provider: Dr. Clarita suarez MD Age/Sex: 79/M Location: [facility] Status: Signed Intake Vital Signs 11/27/24 08:03 12/20/24 10:01 Height 5 ft 9 in 5 ft 9 in Weight: 187 lb 8 oz 189 lb 2 oz BMI 27.6 27.9 BP 101/63 128/78 H Blood Pressure Location Lt brachial Lt brachial Position Sitting Sitting Respiration 16 16 Pulse 63 53 L Pulse Source Monitor Monitor Temp 98.6 F 98.7 F Temp Source Temporal Temporal Pulse Oximetry (%) 96 97 Oxygen Delivery Method room air room air Intake Visit Reasons: RT Bicep/Shoulder Pain Chief Complaint: Right bicep/shoulder pain Substation Superintendent Required: No Accompanied by: Self Is patient in pain?: Yes (Right shoulder/bicep) Pain scale (1-10): 3 Allergies ezetimibe (From Zetia) Adverse Reaction (Intermediate, Verified 12/20/24 09:55) unknown Sulfa (Sulfonamide Antibiotics) Adverse Reaction (Intermediate, Verified 12/20/24 09:55) [email or web address] Medications ???Medication ???Instructions ???Recorded ???Confirmed ???Type aspirin 81 mg tablet,delayed 81 mg PO QDAY 06/08/17 12/20/24 Hi story release finasteride 5 mg tablet 5 mg PO QDAY 06/08/17 12/20/24 His tory multivitamin 1 tab PO QDAY 06/08/17 12/20/24 Hi story pravastatin 40 mg tablet 40 mg PO DAILY #90 tabs 05/29/24 0 12/20/24 Rx sildenafil 100 mg tablet (Viagra) 100 mg PO ONCE PRN sexual activit y 09/06/24 12/20/24 Rx #20 tabs levothyroxine 50 mcg tablet 50 mcg PO DAILY #90 tabs 12/18/24 12/20/24 Rx Have you fallen in the past year?: No PFSH Medical History (Updated 12/20/24 @ 10:[address] Clarita Vogel MD) Bicipital tendinitis, right shoulder Carpal tunnel syndrome of right wrist Popliteal [...] times per week HPI HPI Chief Complaint: Right bicep/shoulder pain Details: SHANKAR CHOW, is a 79 M who presents to the office today for an acute care follow-up visit. 79-year-old gentleman who has had right shoulder discomfort. Initially had some vague discomfort in the right bicep area and then worked its way up to the shoulder. Does not recall any specific injury to this. No abrupt onset of pain. Gradual process. He has not had any situations recently where he was potentially overusing the right shoulder in any way to his recollection. It is bothersome at nighttime so he is trying to lay more on the left side and relaxing the right side. No clicks, locking, popping in the right shoulder. He describes this in the anterior right shoulder. Review of systems per chart. Physical exam. Vital signs on chart. My exam is limited and focused. SHOULDER EVALUATION Inspection -unremarkable right. Venus's test (Supraspinatus) -unremarkable right External rotation (Infrasinatus) -unremarkable right. [place]icello's Lift Off (Subscapularis) -normal strength right, mild anterior discomfort Mcelhattan test (Subscapularis) - Painful drop-arm -negative. Arc - Sulcus sign -negative. Passive painful arc (Neer) - Parag-Hinson - BICEP Speeds test -mild discomfort, right. Yergason's test - SLAP Active-compression (O'Briens sign) -negative right. Crank test - Reproducible tenderness reproduces basically all the discomfort with palpation over the coracoid. ROS Const Constitutional: No body ache, chills, excessive sweating, fatigue, fever(s), frequent falls, headache(s), snoring, weakness or change in appetite Eyes Eyes: No blurry vision, change in vision, eye pain or Light sensitivity ENT ENT: No abnormal hearing, ear or mastoid pain, tinnitus, nasal congestion, headache(s), neck pain or sore throat Resp Respiratory: No cough, shortness of breath, snoring or wheezing Cardio Cardiology: No chest pain at rest, (more content not included)... Normal [facility] MR/BMS.Selina 11-27-2024 MR/BMS.BETTINA [facility] [address] [place] [address] OFFICE VISIT Date of Service: 11/27/24 MR#: [id number] Acct: [id number] Name: SHANKAR CHOW Rep #: [id number] : 1945 Provider: Dr. Clarita suarez MD Age/Sex: 79/M Location: [facility].IM[facility] Status: Signed Intake Vital Signs 05/29/24 08:04 10/05/24 07:42 11/27/24 08:03 Height 5 ft 9 in 5 ft 9 in 5 ft 9 in Weight: 186 lb 187 lb 8 oz BMI 27.4 27.6 BP 122/75 H 101/63 Blood Pressure Location Lt brachial Lt brachial Position Sitting Sitting Respiration 18 16 Pulse 52 L 63 Pulse Source Monitor Monitor Temp 98.6 F Temp Source Temporal Pulse Oximetry (%) 99 96 Oxygen Delivery Method room air Intake Visit Reasons: 6 M FU Chief Complaint: 6 M FU Substation Superintendent Required: No Accompanied by: Self Is patient in pain?: No Allergies ezetimibe (From Zetia) Adverse Reaction (Intermediate, Verified 11/27/24 07:55) unknown Sulfa (Sulfonamide Antibiotics) Adverse Reaction (Intermediate, Verified 11/27/24 07:55) uinknown Medications ???Medication ???Instructions ???Recorded ???Confirmed ???Type aspirin 81 mg tablet,delayed 81 mg PO QDAY 06/08/17 11/27/24 Hi story release finasteride 5 mg tablet 5 mg PO QDAY 06/08/17 11/27/24 His tory multivitamin 1 tab PO QDAY 06/08/17 11/27/24 Hi story levothyroxine 50 mcg tablet 50 mcg PO DAILY #90 tabs 12/02/23 11/27/24 Rx pravastatin 40 mg tablet 40 mg PO DAILY #90 tabs 05/29/24 0 11/27/24 Rx sildenafil 100 mg tablet (Viagra) 100 mg PO ONCE PRN sexual activit y 09/06/24 11/27/24 Rx #20 tabs Have you fallen in the past [...] per week HPI HPI Chief Complaint: 6 M FU Details: SHANKAR CHOW, is a 79 M who presents to the office today for 6-month follow-up. 79-year-old gentleman who has a history of GERD, hyperlipidemia, hypothyroidism. 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 Also follows with the [place]. Generally speaking he has been feeling quite well. He does have some BPH, on finasteride long-term. He is takes aspirin, levothyroxine is 50 mcg daily, pravastatin and as needed sildenafil. Review of systems per chart. Denies chest pain, chest tightness, shortness of breath wheeze cough or congestion. No fever or chills. Appetite is good. He remains very physically active, walking about 4 miles every other day, hopefully going to extend that out to about 5 miles he states. Other activities as well. Tries to eat a good high-quality diet for the most part. Physical exam. Vital signs on chart. Sclera are clear. TMs are unremarkable with normal light reflexes. Canals are unremarkable. Posterior pharynx is unremarkable. Good dentition. No obvious oral mucosal lesions. No cervical or supraclavicular lymph nodes enlarged or tender. No clear thyromegaly. No thyroid nodules readily palpable. Lungs are without wheeze, rhonchi, rales. No E/A changes are heard. Heart is regular. Not tachycardic. No clear murmur, rub, or gallop is identified. The abdomen is soft. Bowel sounds are present. Nontender nondistended abdomen. No significant leg edema. Cranial nerve examination 2 through 12 are grossly unremarkable nonlateralizing. No obvious rashes. No obvious significant skin lesions are identified. ROS Const Constitutional: No body ache, chills, excessive sweating, fatigue, fever(s), frequent falls, headache(s), snoring, weakness or change in appetite Eyes Eyes: No blurry vision, change in vision, eye pain or Light sensitivity ENT ENT: No abnormal hearing, ear or mastoid pain, tinnitus, nasal congestion, headache(s), neck pain or sore throat Resp Respiratory: No cough, shortness of breath, snoring or wheezing Cardio Cardiology: No (more content not included)... Normal [facility] Comprehensive Metabolic Prof ilon 11-21-2024 Bilirubin [Mass/Vol] 0.92 mg/dL Normal 0.00-1.30 [facility] Comment on above: Performed By: #### L 501.37029, L500.4100, L501.9520, L100.0100, L506.0400, L500.4050 ####[facility] [address] [place], [address] Lipid Profileon 11-21-2024 CHOL:HDL 2.45 Normal [facility] Comment on above: Performed By: #### L 501.27385, L500.4100, L501.9520, L100.0100, L506.0400, L500.4050 ####[facility] [address] [place], [address] Cholesterol [Mass/Vol] 177 mg/dL Normal <=200 [facility] Comment on above: Result Comment: Chol esterol level, Desirable <200 mg/dL Borderline high cholesterol 200-239 mg/dL High cholesterol >=240 mg/dL Recommendations of the NCEP Adult Treatment Panel for the following risk-cutoff thresholds for the [place] population. Performed By: #### L 501.23384, L500.4100, L501.9520, L100.0100, L506.0400, L500.4050 ####[facility] [address] [place], [address] Cholesterol in HDL [Mass/Vol] 72 mg/dL Normal [facility] Comment on above: Result Comment: Sofia onal Cholesterol Education Program (NCEP) guidelines: <40 mg/dL: Low HDL-cholesterol (major risk factor for CHD) >= 60 mg/dL: High HDL-cholesterol (negative risk factor for CHD) HDL-cholesterol is affected by a number of factors, e.g. smoking, exercise, hormones, sex and age. Performed By: #### L 501.42388, L500.4100, L501.9520, L100.0100, L506.0400, L500.4050 ####[facility] [address] [place], [address] Cholesterol in LDL [Mass/Vol] 88 mg/dL Normal [facility] Comment on above: Result Comment: Bord qrdxug=835-511 mg/dL Higher Xdpb=664 mg/dL or greater Performed By: #### L 501.40112, L500.4100, L501.9520, L100.0100, L506.0400, L500.4050 ####[facility] [address] [place], [address] Cholesterol in VLDL [Mass/Vol] 17 mg/dL Normal 5-40 [facility] Comment on above: Performed By: #### L 501.04393, L500.4100, L501.9520, L100.0100, L506.0400, L500.4050 ####[facility] [address] [place], [address] Triglyceride [Mass/Vol] 84 mg/dL Normal [facility] Comment on above: Result Comment: The drugs N-Acetylcysteine and Metamizole may falsely depress this assay. Normal range: <150 mg/dL Borderline High: 150-199 mg/dL High: 200-499 mg/dL Very High: >500 mg/dL Performed By: #### L 501.59047, L500.4100, L501.9520, L100.0100, L506.0400, L500.4050 ####[facility] [address] [place], [place], [id number] Absolute lymphocyte countOrd ered By: Clarita Vogel on 11-20-2024 Lymphocytes Auto (Unsp spec) [#/Vol] 2.29 10*3/uL 0.83-4.51 [facility] Absolute neutrophil countOrd ered By: Clarita Vogel on 11-20-2024 Neutrophils (Bld) [#/Vol] 3.2 10*3/uL 2.0-7.7 [facility] Anion gap in Serum or Plasma Ordered By: Clarita Vogel on 11-20-2024 Anion gap [Moles/Vol] 8 mmol/L 5-15 [facility] Automated lymphocyte count a s percentage of total leukocytesOrdered By: Clarita Vogel on 11-20-2024 Lymphocytes/100 WBC Auto (Unsp spec) 34.1 % 19- [facility] BUN/creatinine ratioOrdered By: Clarita Vogel on 11-20-2024 Urea nitrogen/Creatinine [Mass ratio] 16.2 mg/mg 10- [facility] Basophil percentageOrdered B y: Clarita Vogel on 11-20-2024 Basophils/100 WBC (Bld) 1.0 % 0-1 [facility] Bilirubin, totalOrdered By: Clarita Vogel on 11-20-2024 Bilirubin [Mass/Vol] 0.92 mg/dL 0.00-1.30 [facility] CBC W/Diff, Automatedon 11-05 Absolute Lymph 2.29 X10 3/uL Normal 0.83-4.51 [facility] Comment on above: Performed By: #### L 501.33430, L500.4100, L501.9520, L100.0100, L506.0400, L500.4050 ####[facility] [address] [place], [address] Absolute Neut 3.2 X10 3/uL Normal 2.0-7.7 [facility] Comment on above: Performed By: #### L 501.74373, L500.4100, L501.9520, L100.0100, L506.0400, L500.4050 ####[facility] [address] [place], [address] Basophils/100 WBC (Bld) 1.0 % Normal 0-1 [facility] Comment on above: Performed By: #### L 501.69241, L500.4100, L501.9520, L100.0100, L506.0400, L500.4050 ####[facility] [address] [place], [address] Eosinophils/100 WBC (Bld) 5.5 % High 0-5 [facility] Comment on above: Performed By: #### L 501.13991, L500.4100, L501.9520, L100.0100, L506.0400, L500.4050 ####[facility] [address] [place], [address] Erythrocyte distribution width (RBC) [Ratio] 13.2 % Normal 11.6-14.6 [facility] Comment on above: Performed By: #### L 501.41455, L500.4100, L501.9520, L100.0100, L506.0400, L500.4050 ####[facility] [address] [place], [address] Hematocrit (Bld) [Volume fraction] 40.3 % Normal 40-54 [facility] Comment on above: Performed By: #### L 501.40928, L500.4100, L501.9520, L100.0100, L506.0400, L500.4050 ####[facility] [address] [place], [address] Hemoglobin (Bld) [Mass/Vol] 14.3 g/dL Normal 13.0-16.5 [facility] Comment on above: Performed By: #### L 501.30997, L500.4100, L501.9520, L100.0100, L506.0400, L500.4050 ####[facility] [address], [address] IG% 0.300 Normal 0.0-0.9 [facility] Comment on above: Result Comment: IG% - Immature Granulocytes (promyelocytes, myelocytes and metamyelocytes) > 1% indicates that a LEFT SHIFT is Present. Performed By: #### L 501.14498, L500.4100, L501.9520, L100.0100, L506.0400, L500.4050 ####[facility] [address] [place], [address] Lymphocytes/100 WBC (Bld) 34.1 % Normal 19-41 [facility] Comment on above: Performed By: #### L 501.52506, L500.4100, L501.9520, L100.0100, L506.0400, L500.4050 ####[facility] [address] [place], [address] MCH (RBC) [Entitic mass] 33.0 pg High 27.0-32.0 [facility] Comment on above: Performed By: #### L 501.19714, L500.4100, L501.9520, L100.0100, L506.0400, L500.4050 ####[facility] [address] [place], [address] MCHC (RBC) [Mass/Vol] 35.5 g/dL Normal 32-36 [facility] Comment on above: Performed By: #### L 501.93787, L500.4100, L501.9520, L100.0100, L506.0400, L500.4050 ####[facility] [address] [place], [address] MCV (RBC) [Entitic vol] 93.1 fL Normal 80-94 [facility] Comment on above: Performed By: #### L 501.48280, L500.4100, L501.9520, L100.0100, L506.0400, L500.4050 ####[facility] [address] [place], [address] Monocytes/100 WBC (Bld) 11.0 % High 0-10 [facility] Comment on above: Performed By: #### L 501.83068, L500.4100, L501.9520, L100.0100, L506.0400, L500.4050 ####[facility] [address] [place], [address] Neutrophils/100 WBC (Bld) 48.1 % Normal 47-70 [facility] Comment on above: Performed By: #### L 501.58418, L500.4100, L501.9520, L100.0100, L506.0400, L500.4050 ####[facility] [address] [place], [address] Nucleated RBC (Bld) [#/Vol] 0 10*3/uL Normal 0-5 [facility] Comment on above: Performed By: #### L 501.14739, L500.4100, L501.9520, L100.0100, L506.0400, L500.4050 ####[facility] [address] [place], [address] Platelet mean volume (Bld) [Entitic vol] 9.7 fL Normal 6.2-12.0 [facility] Comment on above: Performed By: #### L 501.16408, L500.4100, L501.9520, L100.0100, L506.0400, L500.4050 ####[facility] [address] [place], [address] Platelets (Bld) [#/Vol] 245 10*3/uL Normal 150-450 [facility] Comment on above: Performed By: #### L 501.76826, L500.4100, L501.9520, L100.0100, L506.0400, L500.4050 ####[facility] [address] [place], [address] RBC (Bld) [#/Vol] 4.33 10*6/uL Low 4.6-6.2 [facility] Comment on above: Performed By: #### L 501.66623, L500.4100, L501.9520, L100.0100, L506.0400, L500.4050 ####[facility] [address] [place], [address] RDW SD 45.1 fl High 35.1-43.9 [facility] Comment on above: Performed By: #### L 501.59496, L500.4100, L501.9520, L100.0100, L506.0400, L500.4050 ####[facility] [address] [place], [address] WBC (Bld) [#/Vol] 6.7 10*3/uL Normal 4.4-11.0 [facility] Comment on above: Performed By: #### L 501.52106, L500.4100, L501.9520, L100.0100, L506.0400, L500.4050 ####[facility] [address] [place], [address] Calculated very low density lipoprotein (VLDL) cholesterol measurementOrdered By: Clarita Vogel on 11-20-2024 Calculated very low density lipoprotein (VLDL) cholesterol measurement 17 mg/dL 5-40 [facility] Carbon dioxide, total [Moles /volume] in Central venous bloodOrdered By: Clarita Vogel on 11-20-2024 CO2 [Moles/Vol] 27.0 mmol/L 21.0-32.0 [facility] Chloride assayOrdered By: Swati Vogel on 11-20-2024 Chloride [Moles/Vol] 105 mmol/L 98-108 [facility] Eosinophil percentageOrdered By: Clarita Vogel on 11-20-2024 Eosinophils/100 WBC (Bld) 5.5 % High 0-5 [facility] Erythrocyte distribution wid th ratioOrdered By: Clarita Vogel on 11-20-2024 Erythrocyte distribution width (RBC) [Ratio] 13.2 % 11.6-14.6 [facility] Erythrocyte distribution wid th standard deviationOrdered By: Clarita Vogel on 11-20-2024 Erythrocyte distribution width (RBC) [Ratio] 45.1 fl High 35.1-43.9 [facility] Free T3on 11-20-2024 Free T3 [Mass/Vol] 3.0 pg/mL Normal 2.18-3.98 [facility] Comment on above: Performed By: #### L 501.30181, L500.4100, L501.9520, L100.0100, L506.0400, L500.4050 ####[facility] [address] [place], [place], [id number] Free G0Kjbjjcj By: Clarita garg on 11-20-2024 Free T3 [Mass/Vol] 3.0 pg/mL 2.18-3.98 [facility] Glomerular filtration rate ( GFR) estimation/1.73 sq m using serum, plasma, or whole bOrdered By: Clarita Vogel on 11-20-2024 GFR/1.73 sq M.predicted among non-blacks MDRD (S/P/Bld) [Vol rate/Area] 89 mL/min/{1.73_m2} >60 [facility] Comment on above: mL/min/1.73m2 CKD-EP I Creatinine Equation (2020) Hematocrit Auto (Bld) [Volum e fraction]Ordered By: Clarita Vogel on 11-20-2024 Hematocrit (Bld) [Volume fraction] 40.3 % 40-54 [facility] Hemoglobin measurementOrdere d By: Clarita Vogel on 11-20-2024 Hemoglobin (Bld) [Mass/Vol] 14.3 g/dL 13.0-16.5 [facility] Immature granulocytes/100 WB C Auto (Bld)Ordered By: Clarita Vogel on 11-20-2024 Immature granulocytes/100 WBC (Bld) 0.300 % 0.0-0.9 [facility] Comment on above: IG% - Immature Granu locytes (promyelocytes, myelocytes and metamyelocytes) > 1% indicates that a LEFT SHIFT is Present. LDL calc ser/plasOrdered By: Clarita Vogel on 11-20-2024 Cholesterol in LDL [Mass/Vol] 88 mg/dL [facility] Comment on above: Jjqmepgorz=590-684 m g/dL & Higher Eogc=232 mg/dL or greater Laboratory - Chemistry and C hemistry - challengeOrdered By: Clarita Vogel on 11-20-2024 AST [Catalytic activity/Vol] 23 U/L <38 [facility] MCV (mean corpuscular volume ) determinationOrdered By: Clarita Vogel on 11-20-2024 MCV (RBC) [Entitic vol] 93.1 fL 80-94 [facility] Mean corpuscular hemoglobin (MCH) determinationOrdered By: Clarita Vogel on 11-20-2024 MCH (RBC) [Entitic mass] 33.0 pg High 27.0-32.0 [facility] Mean corpuscular hemoglobin concentration (MCHC) determinationOrdered By: Clarita Vogel on 11-20-2024 MCHC (RBC) [Mass/Vol] 35.5 g/dL 32-36 [facility] Mean platelet volume determi nationOrdered By: Clarita Vogel on 11-20-2024 Platelet mean volume (Bld) [Entitic vol] 9.7 fL 6.2-12.0 [facility] Monocyte percentageOrdered B y: Clarita Vogel on 11-20-2024 Monocytes/100 WBC (Bld) 11.0 % High 0-10 [facility] Neutrophil percentageOrdered By: Clarita Vogel on 11-20-2024 Neutrophils/100 WBC (Bld) 48.1 % 47-70 [facility] Nucleated red blood cell per centageOrdered By: Clarita Vogel on 11-20-2024 Nucleated RBC/100 WBC (Bld) [Ratio] 0 % 0-5 [facility] Platelet countOrdered By: Swati Vogel on 11-20-2024 Platelets (Bld) [#/Vol] 245 10*3/uL 150-450 [facility] Potassium measurement (mass/ volume)Ordered By: Clarita Vogel on 11-20-2024 Potassium (Unsp spec) [Mass/Vol] 3.8 mmol/L 3.3-5.1 [facility] RBC Auto (Bld) [#/Vol]Ordere d By: Clarita Vogel on 11-20-2024 RBC (Bld) [#/Vol] 4.33 10*6/uL Low 4.6-6.2 [facility] Screening total cholesterol/ high density lipoprotein (HDL) cholesterol ratioOrdered By: Clarita Vogel on 11-20-2024 Cholesterol.total/Cholest dagoberto in HDL [Mass ratio] 2.45 {ratio} [facility] Serum creatinine measurement (mass/volume)Ordered By: Clarita Vogel on 11-20-2024 Creatinine [Mass/Vol] 0.84 mg/dL 0.70-1.20 [facility] Serum globulin measurementOr dered By: Clarita Vogel on 11-20-2024 Globulin (S) [Mass/Vol] 2.7 g/dL 2.2-4.2 [facility] Serum glucose measurement (m ass/volume)Ordered By: Clarita Vogel on 11-20-2024 Glucose [Mass/Vol] 90 mg/dL 70-99 [facility] Serum or plasma alanine greenberg otransferase (ALT) measurementOrdered By: Clarita Vogel on 11-20-2024 ALT [Catalytic activity/Vol] 18 U/L <47 [facility] Serum or plasma albumin sam urement (mass/volume)Ordered By: Clarita Vogel on 11-20-2024 Albumin [Mass/Vol] 4.2 g/dL 3.4-4.8 [facility] Serum or plasma albumin/glob ulin mass ratioOrdered By: Clarita Vogel on 11-20-2024 Albumin/Globulin [Mass ratio] 1.5 {ratio} 0.9-2.4 [facility] Serum or plasma alkaline whit sphatase measurementOrdered By: Clarita Vogel on 11-20-2024 ALP [Catalytic activity/Vol] 70 U/L 40-129 [facility] Serum or plasma calcium sam urement (mass/volume)Ordered By: Clarita Vogel on 11-20-2024 Calcium [Mass/Vol] 9.2 mg/dL 7.6-11.0 [facility] Serum or plasma cholesterol in HDL measurement (mass/volume)Ordered By: Clarita Vogel on 11-20-2024 Cholesterol in HDL [Mass/Vol] 72 mg/dL >40 [facility] Comment on above: National Cholesterol Education Program (NCEP) guidelines:<40 mg/dL: Low HDL-cholesterol (major risk factor for CHD)>= 60 mg/dL: High HDL-cholesterol (negative risk factor for CHD)HDL-cholesterol is affected by a number of factors, e.g. smoking, exercise, hormones, sex and age. Serum or plasma cholesterol measurement (mass/volume)Ordered By: Clarita Vogel on 11-20-2024 Cholesterol [Mass/Vol] 177 mg/dL <201 [facility] Comment on above: Cholesterol level, D esirable <200 mg/dLBorderline high cholesterol 200-239 mg/dLHigh cholesterol >=240 mg/dLRecommendations of the NCEP Adult Treatment Panel for the following risk-cutoff thresholds for the [place] population. Serum or plasma urea nitroge n measurement (mass/volume)Ordered By: Clarita Vogel on 11-20-2024 Urea nitrogen [Mass/Vol] 14 mg/dL 4-19 [facility] Sodium levelOrdered By: Nadya Vogel on 11-20-2024 Sodium [Moles/Vol] 140 mmol/L 133-145 [facility] T4 Free Directon 11-20-2024 T4 FREE DIRECT 1.20 ng/dL Normal 0.76-1.46 [facility] Comment on above: Performed By: #### L 501.64377, L500.4100, L501.9520, L100.0100, L506.0400, L500.4050 ####[facility] [address] [place], [place], [address] T4 freeOrdered By: Clarita garg on 11-20-2024 Free T4 [Mass/Vol] 1.20 ng/dL 0.76-1.46 [facility] TSH DL <= 0.005 mIU/L QnOrde red By: Clarita Vogel on 11-20-2024 TSH Qn 3.230 uIU/mL 0.300-4.200 [facility] Thyroid Stim Hormone (TSH)on 11-20-2024 TSH 3.230 uIU/mL Normal 0.300-4.200 [facility] Comment on above: Performed By: #### L 501.77862, L500.4100, L501.9520, L100.0100, L506.0400, L500.4050 ####[facility] [address] [place], [place], [id number] Total proteinOrdered By: Arleth Vogel on 11-20-2024 Protein [Mass/Vol] 7.0 g/dL 5.9-8.4 [facility] Triglycerides measurementOrd ered By: Clarita Vogel on 11-20-2024 Triglyceride [Mass/Vol] 84 mg/dL <199 [facility] Comment on above: The drugs N-Acetylcy steine and Metamizole may falsely depress this assay. Normal range: <150 mg/dLBorderline High: 150-199 mg/dLHigh: 200-499 mg/dLVery High: >500 mg/dL White blood cell (WBC) count Ordered By: Clarita Vogel on 11-20-2024 WBC (Bld) [#/Vol] 6.7 10*3/uL 4.4-11.0 [facility] Cardiology Visit Reporton Cardiology Visit Report [facility] [address] [place] [address] OFFICE VISIT Date of Service: 10/05/24 MR#: [id number] Acct: [id number] Name: SHANKAR CHOW Rep #: [id number] : 1945 Provider: TYLER franco Age/Sex: 79/M Location: [facility] Status: Signed HPI HPI History of Present Illness Details: This is a 79-year-old white male who presents today for outpatient cardiovascular follow-up visit. 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 Normal [facility] MR/BMS.IMBon 07-03-2024 MR/BMS.IMB [facility] [address] [place] [address] OFFICE VISIT Date of Service: 07/03/24 MR#: [id number] Acct: [id number] Name: SHANKAR CHOW Rep #: [id number] : 1945 Provider: Dr. 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 Normal [facility] PT D/C Summary (1)on 024 PT D/C Summary (1) [facility] Physical Therapy [facility] [address] [place] [address] [address] [place] [address] / [facility] DISCHARGE SUMMARY MR#: [id number] Acct: [id number] Name: SHANKAR CHOW Rep #: [id number] : 1945 79 From: Archie Maldonado PT, ATC Referring Dr.: Dr. Clarita Vogel MD Status: R EG RCR Insurance: MEDICARE PART A B [employer] Discharge Summary D/C summary: It has been [...] please feel free to call me at [phone]. Thank you for the referral of this patient. Sincerely, Archie Maldonado, PT, ATC Balance/Gait/Functi onal tests Balance/Special Test Scores Lower Extremity Functional Score: 60 Improvement % Improvement: 98 06/02/24 0931 CC: Dr. Clarita Vogel MD; Clarita Vogel [facility] Signed Normal [facility] MR/BMS.[facility] 05-29-2024 MR/BMS.IMB [facility] [address] [place] [address] OFFICE VISIT Date of Service: 05/29/24 MR#: [id number] Acct: [id number] Name: SHANKAR CHOW Rep #: [id number] : 1945 Provider: Dr. Clarita suarez MD Age/Sex: 79/M Location: [facility] Status: Signed Intake Vital Signs 11/29/23 [...] mo checkup Chief Complaint: 6 m fu Substation Superintendent Required: No Accompanied by: Self Is patient [...] year?: Yes (05/2024, slipped down the steps) PFSH Medical History Popliteal bursitis Encounter for colonoscopy [...] congestion, head (more content not included)... Normal [facility] CBC W/Diff, Automatedon 12-1 Absolute Lymph 1.89 X10 3/uL Normal 0.83-4.51 [facility] Comment on above: Performed By: #### L 500.4050, L500.4100, L506.0400, L100.0100, L501.99696, L501.9520, L506.1000 #### [facility] [address] [place], [address] Absolute Neut 3.2 X10 3/uL Normal 2.0-7.7 [facility] Comment on above: Performed By: #### L 500.4050, L500.4100, L506.0400, L100.0100, L501.72844, L501.9520, L506.1000 #### [facility] [address] [place], [address] Basophils/100 WBC (Bld) 1.1 % High 0-1 [facility] Comment on above: Performed By: #### L 500.4050, L500.4100, L506.0400, L100.0100, L501.71855, L501.9520, L506.1000 #### [facility] [address] [place], [address] Eosinophils/100 WBC (Bld) 7.8 % High 0-5 [facility] Comment on above: Performed By: #### L 500.4050, L500.4100, L506.0400, L100.0100, L501.30560, L501.9520, L506.1000 #### [facility] [address] [place], [address] Erythrocyte distribution width (RBC) [Ratio] 12.6 % Normal 11.6-14.6 [facility] Comment on above: Performed By: #### L 500.4050, L500.4100, L506.0400, L100.0100, L501.21428, L501.9520, L506.1000 #### [facility] [address] [place], [address] Hematocrit (Bld) [Volume fraction] 41.7 % Normal 40-54 [facility] Comment on above: Performed By: #### L 500.4050, L500.4100, L506.0400, L100.0100, L501.60346, L501.9520, L506.1000 #### [facility] [address] [place], [address] Hemoglobin (Bld) [Mass/Vol] 14.4 g/dL Normal 13.0-16.5 [facility] Comment on above: Performed By: #### L 500.4050, L500.4100, L506.0400, L100.0100, L501.59062, L501.9520, L506.1000 #### [facility] [address] [place], [address] IG% 0.500 Normal 0.0-0.9 [facility] Comment on above: Result Comment: IG% - Immature Granulocytes (promyelocytes, myelocytes and metamyelocytes) > 1% indicates that a LEFT SHIFT is Present. Performed By: #### L 500.4050, L500.4100, L506.0400, L100.0100, L501.31966, L501.9520, L506.1000 #### [facility] [address] [place], [address] Lymphocytes/100 WBC (Bld) 30.0 % Normal 19-41 [facility] Comment on above: Performed By: #### L 500.4050, L500.4100, L506.0400, L100.0100, L501.34130, L501.9520, L506.1000 #### [facility] [address] [place], [address] MCH (RBC) [Entitic mass] 32.1 pg High 27.0-32.0 [facility] Comment on above: Performed By: #### L 500.4050, L500.4100, L506.0400, L100.0100, L501.67064, L501.9520, L506.1000 #### [facility] [address] [place], [address] MCHC (RBC) [Mass/Vol] 34.5 g/dL Normal 32-36 [facility] Comment on above: Performed By: #### L 500.4050, L500.4100, L506.0400, L100.0100, L501.81967, L501.9520, L506.1000 #### [facility] [address] [place], [address] MCV (RBC) [Entitic vol] 93.1 fL Normal 80-94 [facility] Comment on above: Performed By: #### L 500.4050, L500.4100, L506.0400, L100.0100, L501.52202, L501.9520, L506.1000 #### [facility] [address] [place], [address] Monocytes/100 WBC (Bld) 9.5 % Normal 0-10 [facility] Comment on above: Performed By: #### L 500.4050, L500.4100, L506.0400, L100.0100, L501.12617, L501.9520, L506.1000 #### [facility] [address] [place], [address] Neutrophils/100 WBC (Bld) 51.1 % Normal 47-70 [facility] Comment on above: Performed By: #### L 500.4050, L500.4100, L506.0400, L100.0100, L501.25820, L501.9520, L506.1000 #### [facility] [address] [place], [address] Nucleated RBC (Bld) [#/Vol] 0 10*3/uL Normal 0-5 [facility] Comment on above: Performed By: #### L 500.4050, L500.4100, L506.0400, L100.0100, L501.79137, L501.9520, L506.1000 #### [facility] [address] [place], [address] Platelet mean volume (Bld) [Entitic vol] 9.2 fL Normal 6.2-12.0 [facility] Comment on above: Performed By: #### L 500.4050, L500.4100, L506.0400, L100.0100, L501.86598, L501.9520, L506.1000 #### [facility] [address] [place], [address] Platelets (Bld) [#/Vol] 252 10*3/uL Normal 150-450 [facility] Comment on above: Performed By: #### L 500.4050, L500.4100, L506.0400, L100.0100, L501.86040, L501.9520, L506.1000 #### [facility] [address] [place], [address] RBC (Bld) [#/Vol] 4.48 10*6/uL Low 4.6-6.2 [facility] Comment on above: Performed By: #### L 500.4050, L500.4100, L506.0400, L100.0100, L501.86780, L501.9520, L506.1000 #### [facility] [address] [place], [address] RDW SD 43.1 fl Normal 35.1-43.9 [facility] Comment on above: Performed By: #### L 500.4050, L500.4100, L506.0400, L100.0100, L501.06276, L501.9520, L506.1000 #### [facility] [address] [place], [address] WBC (Bld) [#/Vol] 6.3 10*3/uL Normal 4.4-11.0 [facility] Comment on above: Performed By: #### L 500.4050, L500.4100, L506.0400, L100.0100, L501.33627, L501.9520, L506.1000 #### [facility] [address] [place], [address] Comprehensive Metabolic Prof [facility] 05-23-2024 Albumin [Mass/Vol] 3.6 g/dL Normal 3.2-5.0 [facility] Comment on above: Performed By: #### L 500.4050, L500.4100, L506.0400, L100.0100, L501.51313, L501.9520, L506.1000 #### [facility] [address] [place], [address] Albumin/Globulin [Mass ratio] 1.0 {ratio} Normal 0.9-2.4 [facility] Comment on above: Performed By: #### L 500.4050, L500.4100, L506.0400, L100.0100, L501.83984, L501.9520, L506.1000 #### [facility] [address] [place], [address] ALK P 74 U/L Normal 45-117 [facility] Comment on above: Performed By: #### L 500.4050, L500.4100, L506.0400, L100.0100, L501.82061, L501.9520, L506.1000 #### [facility] [address] [place], [address] ALT [Catalytic activity/Vol] 28 U/L Normal 16-61 [facility] Comment on above: Performed By: #### L 500.4050, L500.4100, L506.0400, L100.0100, L501.14133, L501.9520, L506.1000 #### [facility] [address] [place], [address] AST [Catalytic activity/Vol] 20 U/L Normal 15-37 [facility] Comment on above: Performed By: #### L 500.4050, L500.4100, L506.0400, L100.0100, L501.68496, L501.9520, L506.1000 #### [facility] [address] [place], [address] Bilirubin [Mass/Vol] 1.10 mg/dL High 0.20-1.00 [facility] Comment on above: Result Comment: For patients on eltrombopag therapy, use of Dim[place] TBIL is not recommended. Performed By: #### L 500.4050, L500.4100, L506.0400, L100.0100, L501.99949, L501.9520, L506.1000 #### [facility] [address] [place], [address] BUN/CRE 14.1 RATIO Normal 10-20 [facility] Comment on above: Performed By: #### L 500.4050, L500.4100, L506.0400, L100.0100, L501.19856, L501.9520, L506.1000 #### [facility] [address] [place], [address] CA,Total 9.1 mg/dL Normal 8.5-10.1 [facility] Comment on above: Performed By: #### L 500.4050, L500.4100, L506.0400, L100.0100, L501.38313, L501.9520, L506.1000 #### [facility] [address] [place], [address] Chloride [Moles/Vol] 106 mmol/L Normal 98-107 [facility] Comment on above: Performed By: #### L 500.4050, L500.4100, L506.0400, L100.0100, L501.99501, L501.9520, L506.1000 #### [facility] [address] [place], [address] CO2 [Moles/Vol] 28.0 mmol/L Normal 21.0-32.0 [facility] Comment on above: Performed By: #### L 500.4050, L500.4100, L506.0400, L100.0100, L501.80718, L501.9520, L506.1000 #### [facility] [address] [place], [address] Creatinine [Mass/Vol] 0.99 mg/dL Normal 0.70-1.30 [facility] Comment on above: Result Comment: The validity of the calculated GFR GFRAA in patients over 70 years has not been determined. Clinical correlation is essential. Performed By: #### L 500.4050, L500.4100, L506.0400, L100.0100, L501.98582, L501.9520, L506.1000 #### [facility] [address] [place], [address] EST GFR - AA 94 mL/min Normal >60 [facility] Comment on above: Result Comment: Afri can [place] GFR Calc Performed By: #### L 500.4050, L500.4100, L506.0400, L100.0100, L501.79300, L501.9520, L506.1000 #### [facility] [address] [place], [address] GAP 4 Low 5-15 [facility] Comment on above: Performed By: #### L 500.4050, L500.4100, L506.0400, L100.0100, L501.80140, L501.9520, L506.1000 #### [facility] [address] [place], [address] GFR/1.73 sq M.predicted among non-blacks MDRD (S/P/Bld) [Vol rate/Area] 78 mL/min/{1.73_m2} Normal >60 [facility] Comment on above: Result Comment: Non- GFR Calc Performed By: #### L 500.4050, L500.4100, L506.0400, L100.0100, L501.35609, L501.9520, L506.1000 #### [facility] [address] [place], [address] Globulin (S) [Mass/Vol] 3.7 g/dL Normal 2.2-4.2 [facility] Comment on above: Performed By: #### L 500.4050, L500.4100, L506.0400, L100.0100, L501.98941, L501.9520, L506.1000 #### [facility] [address] [place], [address] Glucose [Mass/Vol] 97 mg/dL Normal 74-106 [facility] Comment on above: Performed By: #### L 500.4050, L500.4100, L506.0400, L100.0100, L501.11143, L501.9520, L506.1000 #### [facility] [address] [place], [address] Potassium [Moles/Vol] 3.9 mmol/L Normal 3.5-5.1 [facility] Comment on above: Performed By: #### L 500.4050, L500.4100, L506.0400, L100.0100, L501.73897, L501.9520, L506.1000 #### [facility] [address] [place], [address] Sodium [Moles/Vol] 139 mmol/L Normal 136-145 [facility] Comment on above: Performed By: #### L 500.4050, L500.4100, L506.0400, L100.0100, L501.72906, L501.9520, L506.1000 #### [facility] [address] [place], [address] T PROT 7.3 g/dL Normal 6.4-8.2 [facility] Comment on above: Performed By: #### L 500.4050, L500.4100, L506.0400, L100.0100, L501.28192, L501.9520, L506.1000 #### [facility] [address] [place], [address] Urea nitrogen [Mass/Vol] 14 mg/dL Normal 7-18 [facility] Comment on above: Performed By: #### L 500.4050, L500.4100, L506.0400, L100.0100, L501.56319, L501.9520, L506.1000 #### [facility] [address] [place], [address] Free T3on 05-23-2024 Free T3 [Mass/Vol] 2.6 pg/mL Normal 2.18-3.98 [facility] Comment on above: Performed By: #### L 500.4050, L500.4100, L506.0400, L100.0100, L501.54438, L501.9520, L506.1000 #### [facility] [address] [place], [address] Lipid Profileon 05-23-2024 Cholesterol [Mass/Vol] 154 mg/dL Normal 200 [facility] Comment on above: Result Comment: <200 mg/dL Desirable 200-240 mg/dL Borderline >240 mg/dL High Risk Performed By: #### L 500.4050, L500.4100, L506.0400, L100.0100, L501.33829, L501.9520, L506.1000 #### [facility] [address] [place], [address] Cholesterol in HDL [Mass/Vol] 76 mg/dL Normal [facility] Comment on above: Result Comment: The drugs N-Acetylcysteine and Metamizole may falsely depress this assay. Reference Range HDL <40 mg/dL Low HDL Cholesterol HDL >or= 60 mg/dL High HDL Cholesterol Performed By: #### L 500.4050, L500.4100, L506.0400, L100.0100, L501.15756, L501.9520, L506.1000 #### [facility] [address] [place], [address] Cholesterol in LDL [Mass/Vol] 64 mg/dL Normal 0-130 [facility] Comment on above: Performed By: #### L 500.4050, L500.4100, L506.0400, L100.0100, L501.89145, L501.9520, L506.1000 #### [facility] [address] [place], [address] Cholesterol in VLDL [Mass/Vol] 14 mg/dL Normal 5-40 [facility] Comment on above: Performed By: #### L 500.4050, L500.4100, L506.0400, L100.0100, L501.70926, L501.9520, L506.1000 #### [facility] [address] [place], [address] Triglyceride [Mass/Vol] 69 mg/dL Normal [facility] Comment on above: Result Comment: The drugs N-Acetylcysteine and Metamizole may falsely depress this assay. Serum Triglycerides Reference Interval Normal <150 mg/dL Borderline high 150 - 199 mg/dL High 200 - 499 mg/dL Very High > or = 500 mg/dL Performed By: #### L 500.4050, L500.4100, L506.0400, L100.0100, L501.06901, L501.9520, L506.1000 #### [facility] [address] [place], [address] T4 Free Directon 05-23-2024 T4 FREE DIRECT 1.09 ng/dL Normal 0.76-1.46 [facility] Comment on above: Performed By: #### L 500.4050, L500.4100, L506.0400, L100.0100, L501.87301, L501.9520, L506.1000 #### [facility] [address] [place], [address] Thyroid Stim Hormone (TSH)on 05-23-2024 TSH 2.180 uIU/mL Normal 0.358-3.740 [facility] Comment on above: Performed By: #### L 500.4050, L500.4100, L506.0400, L100.0100, L501.67857, L501.9520, L506.1000 #### [facility] [address] [place], [address] Vitamin D,25 Hydroxyon 05-23 Vitamin D 25-OH 39.2 ng/mL Normal [facility] Comment on above: Result Comment: Xin min D 25(OH) Status Range Deficiency <20 ng/mL (50nmol/L) Insufficiency 20 - 30 ng/mL (50 - 75 nmol/L) Sufficiency 30 - 100 ng/mL (75 - 250 nmol/L) Toxicity >100 ng/mL (>250 nmol/L) Performed By: #### L 500.4050, L500.4100, L506.0400, L100.0100, L501.95451, L501.9520, L506.1000 ####[facility] [address] [place], [address] Absolute lymphocyte countOrd ered By: Clarita Vogel on 04-13-2023 Lymphocytes Auto (Unsp spec) [#/Vol] 2.15 10*3/uL 0.83-4.51 [facility] Basophil percentageOrdered B y: Clarita Vogel on 04-13-2023 Basophils/100 WBC (Bld) 1.4 % 0-1 [facility] Bilirubin [Mass/Vol] 0.80 mg/dL 0.20-1.00 [facility] Comment on above: For patients on eltr ombopag therapy, use of Dim[place] TBIL is not recommended. Chloride [Moles/Vol] 106 mmol/L 98-107 [facility] Cholesterol [Mass/Vol] 167 mg/dL <200 [facility] Comment on above: <200 mg/dL Desirable 200-240 mg/dL Borderline >240 mg/dL High Risk Eosinophils/100 WBC (Bld) 3.7 % 0-5 [facility] Glucose [Mass/Vol] 96 mg/dL 74-106 [facility] Neutrophils (Bld) [#/Vol] 2.8 10*3/uL 2.0-7.7 [facility] Neutrophils/100 WBC (Bld) 48.7 % 47-70 [facility] Potassium [Moles/Vol] 4.0 mmol/L 3.5-5.1 [facility] Protein [Mass/Vol] 7.1 g/dL 6.4-8.2 [facility] Sodium [Moles/Vol] 138 mmol/L 136-145 [facility] Triglyceride [Mass/Vol] 75 mg/dL <199 [facility] Comment on above: The drugs N-Acetylcy steine and Metamizole may falsely depress this assay.Serum Triglycerides Reference Interval Normal <150 mg/dL Borderline high 150 - 199 mg/dL High 200 - 499 mg/dL Very High > or = 500 mg/dL WBC (Bld) [#/Vol] 5.7 10*3/uL 4.4-11.0 [facility] Blood erythrocytes count (nu mber/volume)Ordered By: Clarita Vogel on 04-13-2023 RBC (Bld) [#/Vol] 4.55 10*6/uL 4.6-6.2 [facility] Blood hemoglobin measurement (mass/volume)Ordered By: Clarita Vogel on 04-13-2023 Hemoglobin (Bld) [Mass/Vol] 14.6 g/dL 13.0-16.5 [facility] Blood lymphocytes/100 leukoc ytesOrdered By: Clarita Vogel on 04-13-2023 Lymphocytes/100 WBC (Bld) 37.9 % 19-41 [facility] Blood monocytes/100 leukocyt esOrdered By: Clarita Vogel on 04-13-2023 Monocytes/100 WBC (Bld) 8.1 % 0-10 [facility] Blood platelet mean volumeOr dered By: Clarita Vogel on 04-13-2023 Platelet mean volume (Bld) [Entitic vol] 9.6 fL 6.2-12.0 [facility] Determination of erythrocyte mean corpuscular volume (MCV)Ordered By: Clarita Vogel on 04-13-2023 MCV (RBC) [Entitic vol] 95.4 fL 80-94 [facility] Hematocrit Auto (Bld) [Volum e fraction]Ordered By: Clarita Vogel on 04-13-2023 Hematocrit (Bld) [Volume fraction] 43.4 % 40-54 [facility] - Chemistry and C hemistry - challengeOrdered By: Clarita Vogel on 04-13-2023 ALP [Catalytic activity/Vol] 68 U/L 45-117 [facility] ALT [Catalytic activity/Vol] 28 U/L 16-61 [facility] CO2 [Moles/Vol] 31.0 mmol/L 21.0-32.0 [facility] Free T4 [Mass/Vol] 0.90 ng/dL 0.76-1.46 [facility] Globulin (S) [Mass/Vol] 3.3 g/dL 2.2-4.2 [facility] Urea nitrogen/Creatinine [Mass ratio] 19.8 mg/mg 10-20 [facility] - Hematology and Cell countsOrdered By: Clarita Vogel on 04-13-2023 Erythrocyte distribution width (RBC) [Entitic vol] 45.9 fL 35.1-43.9 [facility] Erythrocyte distribution width (RBC) [Ratio] 13.0 % 11.6-14.6 [facility] Immature granulocytes/100 WBC (Bld) 0.200 % 0.0-0.9 [facility] Comment on above: IG% - Immature Granu locytes (promyelocytes, myelocytes and metamyelocytes) > 1% indicates that a LEFT SHIFT is Present. MCH (RBC) [Entitic mass] 32.1 pg 27.0-32.0 [facility] Nucleated RBC/100 WBC (Bld) [Ratio] 0 % 0-5 [facility] MCHC Auto (RBC) [Mass/Vol]Or dered By: Clarita Vogel on 04-13-2023 MCHC (RBC) [Mass/Vol] 33.6 g/dL 32-36 [facility] No Panel InformationOrdered By: Clarita Vogel on 04-13-2023 Estimated GFR (MDRD) Amer 104 mL/min >60 [facility] Comment on above: GFR Calc Estimated GFR (MDRD) Non-Af Amer 86 mL/min >60 [facility] Comment on above: Non- GFR Calc Free Triiodothyronine (T3) pg/dL 2.6 pg/mL 2.18-3.98 [facility] Thyroid Stimulating Hormone (TSH) 3.73 uIU/mL 0.358-3.74 [facility] Vitamin D 25-Hydroxy 52.4 ng/mL [facility] Comment on above: Vitamin D 25(OH) Sta tus Range Deficiency <20 ng/mL (50nmol/L) Insufficiency 20 - 30 ng/mL (50 - 75 nmol/L) Sufficiency 30 - 100 ng/mL (75 - 250 nmol/L) Toxicity >100 ng/mL (>250 nmol/L) Platelets bldOrdered By: Arleth Vogel on 04-13-2023 Platelets (Bld) [#/Vol] 226 10*3/uL 150-450 [facility] Serum or plasma albumin sam urement (mass/volume)Ordered By: Clarita Vogel on 04-13-2023 Albumin [Mass/Vol] 3.8 g/dL 3.2-5.0 [facility] Serum or plasma albumin/glob ulin mass ratioOrdered By: Clarita Vogel on 04-13-2023 Albumin/Globulin [Mass ratio] 1.2 {ratio} 0.9-2.4 [facility] Serum or plasma calcium sam urement (mass/volume)Ordered By: Clarita Vogel on 04-13-2023 Calcium [Mass/Vol] 8.8 mg/dL 8.5-10.1 [facility] Serum or plasma cholesterol in HDL measurement (mass/volume)Ordered By: Clarita Vogel on 04-13-2023 Cholesterol in HDL [Mass/Vol] 77 mg/dL >40 [facility] Comment on above: The drugs N-Acetylcy steine and Metamizole may falsely depress this assay. Reference Range HDL <40 mg/dL Low HDL Cholesterol HDL >or= 60 mg/dL High HDL Cholesterol Serum or plasma cholesterol in VLDL measurement (mass/volume)Ordered By: Clarita Vogel on 04-13-2023 Cholesterol in VLDL [Mass/Vol] 15 mg/dL 5-40 [facility] Serum or plasma creatinine m easurement (mass/volume)Ordered By: Clarita Vogel on 04-13-2023 Creatinine [Mass/Vol] 0.91 mg/dL 0.70-1.30 [facility] Comment on above: The validity of the calculated GFR & GFRAA in patients over 70 years has not been determined. Clinical correlation is essential. Serum or plasma low density lipoprotein (LDL) cholesterol measurement (mass/volume)Ordered By: Clarita Vogel on 04-13-2023 Cholesterol in LDL [Mass/Vol] 75 mg/dL 0-130 [facility] Serum or plasma urea nitroge n measurement (mass/volume)Ordered By: Clarita Vogel on 04-13-2023 Urea nitrogen [Mass/Vol] 18 mg/dL 7-18 [facility] Thin prep Papanicolaou smear with manual screeningOrdered By: Clarita Vogel on 04-13-2023 Thin prep Papanicolaou smear with manual screening 23 U/L 15-37 [facility] Thin prep Papanicolaou smear with manual screening 1 5-15 [facility] No Panel InformationOrdered By: Beto Jane on 03-18-2023 Prostate Specific Antigen Screen 3.99 ng/mL 0.00-4.00 [facility] Comment on above: This test was perfor med using the TPSA assay method for the[facility] HospitalSipwise chemistry system. Values obtained with differentassay methods cannot be used interchangably.When changing PSA assays in the course of monitoring apatient, additional sequential testing should be carriedout to confirm baseline values. Absolute lymphocyte countOrd ered By: Dr. Vogel on 10-14-2022 Lymphocytes Auto (Unsp spec) [#/Vol] 2.04 10*3/uL 0.83-4.51 [facility] Basophil percentageOrdered B y: Dr. Vogel on 10-14-2022 Basophils/100 WBC (Bld) 1.2 % 0-1 [facility] Bilirubin [Mass/Vol] 0.60 mg/dL 0.20-1.00 [facility] Comment on above: For patients on eltr ombopag therapy, use of [employer] TBIL is not recommended. Chloride [Moles/Vol] 109 mmol/L 98-107 [facility] Cholesterol [Mass/Vol] 156 mg/dL <200 [facility] Comment on above: <200 mg/dL Desirable 200-240 mg/dL Borderline >240 mg/dL High Risk Eosinophils/100 WBC (Bld) 6.9 % 0-5 [facility] Glucose [Mass/Vol] 100 mg/dL 74-106 [facility] Comment on above: Fasting Glucose resu lt from 100 to 125 mg/dL suggests IMPAIRED HOMEOSTASIS per A.D.A. criteria. Neutrophils (Bld) [#/Vol] 2.2 10*3/uL 2.0-7.7 [facility] Neutrophils/100 WBC (Bld) 41.6 % 47-70 [facility] Potassium [Moles/Vol] 4.2 mmol/L 3.5-5.1 [facility] Protein [Mass/Vol] 6.8 g/dL 6.4-8.2 [facility] Sodium [Moles/Vol] 142 mmol/L 136-145 [facility] Triglyceride [Mass/Vol] 54 mg/dL <199 [facility] Comment on above: The drugs N-Acetylcy steine and Metamizole may falsely depress this assay.Serum Triglycerides Reference Interval Normal <150 mg/dL Borderline high 150 - 199 mg/dL High 200 - 499 mg/dL Very High > or = 500 mg/dL WBC (Bld) [#/Vol] 5.2 10*3/uL 4.4-11.0 [facility] Blood erythrocytes count (nu mber/volume)Ordered By: Dr. Vogel on 10-14-2022 RBC (Bld) [#/Vol] 4.52 10*6/uL 4.6-6.2 [facility] Blood hemoglobin measurement (mass/volume)Ordered By: Dr. Vogel on 10-14-2022 Hemoglobin (Bld) [Mass/Vol] 14.3 g/dL 13.0-16.5 [facility] Blood lymphocytes/100 leukoc ytesOrdered By: Dr. Vogel on 10-14-2022 Lymphocytes/100 WBC (Bld) 39.3 % 19-41 [facility] Blood monocytes/100 leukocyt esOrdered By: Dr. Vogel on 10-14-2022 Monocytes/100 WBC (Bld) 10.8 % 0-10 [facility] Blood platelet mean volumeOr dered By: Dr. Vogel on 10-14-2022 Platelet mean volume (Bld) [Entitic vol] 9.9 fL 6.2-12.0 [facility] Determination of erythrocyte mean corpuscular volume (MCV)Ordered By: Dr. Vogel on 10-14-2022 MCV (RBC) [Entitic vol] 94.7 fL 80-94 [facility] Hematocrit Auto (Bld) [Volum e fraction]Ordered By: Dr. Vogel on 10-14-2022 Hematocrit (Bld) [Volume fraction] 42.8 % 40-54 [facility] - Chemistry and C hemistry - challengeOrdered By: Dr. Vogel on 10-14-2022 ALP [Catalytic activity/Vol] 68 U/L 45-117 [facility] [place] ALT [Catalytic activity/Vol] 27 U/L 16-61 [facility] [place] CO2 [Moles/Vol] 29.0 mmol/L 21.0-32.0 [facility] [place] Free T4 [Mass/Vol] 0.87 ng/dL 0.76-1.46 [facility] Globulin (S) [Mass/Vol] 3.2 g/dL 2.2-4.2 [facility] Urea nitrogen/Creatinine [Mass ratio] 14.4 mg/mg 10-20 [facility] [place] Laboratory - Hematology and Cell countsOrdered By: Dr. Vogel on 10-14-2022 Erythrocyte distribution width (RBC) [Entitic vol] 46.4 fL 35.1-43.9 [facility] Erythrocyte distribution width (RBC) [Ratio] 13.3 % 11.6-14.6 [facility] [place] Immature granulocytes/100 WBC (Bld) 0.200 % 0.0-0.9 [facility] [place] Comment on above: IG% - Immature Granu locytes (promyelocytes, myelocytes and metamyelocytes) > 1% indicates that a LEFT SHIFT is Present. MCH (RBC) [Entitic mass] 31.6 pg 27.0-32.0 [facility] [place] Nucleated RBC/100 WBC (Bld) [Ratio] 0 % 0-5 [facility] [place] MCHC Auto (RBC) [Mass/Vol]Or dered By: Dr. Vogel on 10-14-2022 MCHC (RBC) [Mass/Vol] 33.4 g/dL 32-36 [facility] No Panel InformationOrdered By: Dr. Vogel on 10-14-2022 Estimated GFR (MDRD) Amer 115 mL/min >60 [facility] [place] Comment on above: GFR Calc Estimated GFR (MDRD) Non-Af Amer 95 mL/min >60 [facility] [place] Comment on above: Non- GFR Calc Free Triiodothyronine (T3) pg/dL 2.4 pg/mL 2.18-3.98 [facility] [place] Thyroid Stimulating Hormone (TSH) 3.68 uIU/mL 0.358-3.74 [facility] [place] Platelets bldOrdered By: Dr. Vogel on 10-14-2022 Platelets (Bld) [#/Vol] 212 10*3/uL 150-450 [facility] [place] Serum or plasma albumin sam urement (mass/volume)Ordered By: Dr. Vogel on 10-14-2022 Albumin [Mass/Vol] 3.6 g/dL 3.2-5.0 [facility] Serum or plasma albumin/glob ulin mass ratioOrdered By: Dr. Vogel on 10-14-2022 Albumin/Globulin [Mass ratio] 1.1 {ratio} 0.9-2.4 [facility] [place] Serum or plasma calcium sam urement (mass/volume)Ordered By: Dr. Vogel on 10-14-2022 Calcium [Mass/Vol] 8.7 mg/dL 8.5-10.1 [facility] Serum or plasma cholesterol in HDL measurement (mass/volume)Ordered By: Dr. Vogel on 10-14-2022 Cholesterol in HDL [Mass/Vol] 75 mg/dL >40 [facility] [place] Comment on above: The drugs N-Acetylcy steine and Metamizole may falsely depress this assay. Reference Range HDL <40 mg/dL Low HDL Cholesterol HDL >or= 60 mg/dL High HDL Cholesterol Serum or plasma cholesterol in VLDL measurement (mass/volume)Ordered By: Dr. Vogel on 10-14-2022 Cholesterol in VLDL [Mass/Vol] 11 mg/dL 5-40 [facility] [place] Serum or plasma creatinine m easurement (mass/volume)Ordered By: Dr. Vogel on 10-14-2022 Creatinine [Mass/Vol] 0.84 mg/dL 0.70-1.30 [facility] Comment on above: The validity of the calculated GFR & GFRAA in patients over 70 years has not been determined. Clinical correlation is essential. Serum or plasma low density lipoprotein (LDL) cholesterol measurement (mass/volume)Ordered By: Dr. Vogel on 10-14-2022 Cholesterol in LDL [Mass/Vol] 70 mg/dL 0-130 [facility] [place] Serum or plasma urea nitroge n measurement (mass/volume)Ordered By: Dr. Vogel on 10-14-2022 Urea nitrogen [Mass/Vol] 12 mg/dL 7-18 [facility] [place] Thin prep Papanicolaou smear with manual screeningOrdered By: Dr. Vogel on 10-14-2022 Thin prep Papanicolaou smear with manual screening 21 U/L 15-37 [facility] [place] Thin prep Papanicolaou smear with manual screening 4 5-15 [facility] [place] Absolute lymphocyte counton 10-31-2022 Lymphocytes Auto (Unsp spec) [#/Vol] 2.10 10*3/uL 0.83-4.51 [facility] [place] Work Phone: [phone] Basophil percentageon 2021 Basophils/100 WBC (Bld) 1.1 % 0-1 [facility] Work Phone: [phone] Bilirubin [Mass/Vol] 0.60 mg/dL 0.20-1.00 [facility] Work Phone: Comment on above: For patients on eltr ombopag therapy, use of [place] TBIL is not recommended. Chloride [Moles/Vol] 104 mmol/L 98-107 [facility] Work Phone: [phone] Cholesterol [Mass/Vol] 152 mg/dL <200 [facility] Work Phone: [phone] Comment on above: <200 mg/dL Desirable 200-240 mg/dL Borderline >240 mg/dL High Risk Eosinophils/100 WBC (Bld) 4.3 % 0-5 [facility] [place] Work Phone: [phone] Glucose [Mass/Vol] 83 mg/dL 74-106 [facility] Work Phone: [phone] Neutrophils (Bld) [#/Vol] 5.0 10*3/uL 2.0-7.7 [facility] [place] Work Phone: [phone] Neutrophils/100 WBC (Bld) 60.1 % 47-70 [facility] [place] Work Phone: [phone] Potassium [Moles/Vol] 3.9 mmol/L 3.5-5.1 [facility] Work Phone: [phone] Protein [Mass/Vol] 7.4 g/dL 6.4-8.2 [facility] Work Phone: [phone] Sodium [Moles/Vol] 139 mmol/L 136-145 [facility] Work Phone: [phone] Triglyceride [Mass/Vol] 74 mg/dL <199 [facility] Work Phone: [phone] Comment on above: The drugs N-Acetylcy steine and Metamizole may falsely depress this assay.Serum Triglycerides Reference Interval Normal <150 mg/dL Borderline high 150 - 199 mg/dL High 200 - 499 mg/dL Very High > or = 500 mg/dL WBC (Bld) [#/Vol] 8.4 10*3/uL 4.4-11.0 [facility] Work Phone: Blood erythrocytes count (nu mber/volume)on 04-06-2022 RBC (Bld) [#/Vol] 4.56 10*6/uL 4.6-6.2 [facility] Work Phone: Blood hemoglobin measurement (mass/volume)on 04-06-2022 Hemoglobin (Bld) [Mass/Vol] 14.7 g/dL 13.0-16.5 [facility] [place] Work Phone: Blood lymphocytes/100 leukoc yteson 04-06-2022 Lymphocytes/100 WBC (Bld) 25.1 % 19-41 [facility] [place] Work Phone: Blood monocytes/100 leukocyt eson 04-06-2022 Monocytes/100 WBC (Bld) 9.0 % 0-10 [facility] Work Phone: Blood platelet mean volumeon 04-06-2022 Platelet mean volume (Bld) [Entitic vol] 9.6 fL 6.2-12.0 [facility] [place] Work Phone: Determination of erythrocyte mean corpuscular volume (MCV)on 04-06-2022 MCV (RBC) [Entitic vol] 93.9 fL 80-94 [facility] Work Phone: Hematocrit Auto (Bld) [Volum e fraction]on 04-06-2022 Hematocrit (Bld) [Volume fraction] 42.8 % 40-54 [facility] [place] Work Phone: Laboratory - Chemistry and C hemistry - challengeon 04-06-2022 ALP [Catalytic activity/Vol] 78 U/L 45-117 [facility] [place] Work Phone: ALT [Catalytic activity/Vol] 24 U/L 16-61 [facility] [place] Work Phone: CO2 [Moles/Vol] 30.0 mmol/L 21.0-32.0 [facility] [place] Work Phone: Free T4 [Mass/Vol] 0.99 ng/dL 0.76-1.46 [facility] Work Phone: Globulin (S) [Mass/Vol] 3.9 g/dL 2.2-4.2 [facility] Work Phone: Urea nitrogen/Creatinine [Mass ratio] 18.0 mg/mg 10-20 [facility] [place] Work Phone: Laboratory - Hematology and Cell countson 04-06-2022 Erythrocyte distribution width (RBC) [Entitic vol] 44.6 fL 35.1-43.9 [facility] Work Phone: Erythrocyte distribution width (RBC) [Ratio] 13.0 % 11.6-14.6 [facility] [place] Work Phone: Immature granulocytes/100 WBC (Bld) 0.400 % 0.0-0.9 [facility] [place] Work Phone: Comment on above: IG% - Immature Granu locytes (promyelocytes, myelocytes and metamyelocytes) > 1% indicates that a LEFT SHIFT is Present. MCH (RBC) [Entitic mass] 32.2 pg 27.0-32.0 [facility] [place] Work Phone: Nucleated RBC/100 WBC (Bld) [Ratio] 0 % 0-5 [facility] [place] Work Phone: MCHC Auto (RBC) [Mass/Vol]on 04-06-2022 MCHC (RBC) [Mass/Vol] 34.3 g/dL 32-36 [facility] Work Phone: No Panel Informationon 04-06 Estimated GFR (MDRD) Amer 124 mL/min >60 [facility] [place] Work Phone: Comment on above: GFR Calc Estimated GFR (MDRD) Non-Af Amer 103 mL/min >60 [facility] [place] Work Phone: Comment on above: Non- GFR Calc Free Triiodothyronine (T3) pg/dL 2.2 pg/mL 2.18-3.98 [facility] [place] Work Phone: Thyroid Stimulating Hormone (TSH) 4.21 uIU/mL 0.358-3.74 [facility] [place] Work Phone: Vitamin D 25-Hydroxy 45.0 ng/mL [facility] Work Phone: Comment on above: Vitamin D 25(OH) Sta tus Range Deficiency <20 ng/mL (50nmol/L) Insufficiency 20 - 30 ng/mL (50 - 75 nmol/L) Sufficiency 30 - 100 ng/mL (75 - 250 nmol/L) Toxicity >100 ng/mL (>250 nmol/L) Platelets bldon 04-06-2022 Platelets (Bld) [#/Vol] 294 10*3/uL 150-450 [facility] [place] Work Phone: Serum or plasma albumin sam urement (mass/volume)on 04-06-2022 Albumin [Mass/Vol] 3.5 g/dL 3.2-5.0 [facility] Work Phone: Serum or plasma albumin/glob ulin mass ratioon 04-06-2022 Albumin/Globulin [Mass ratio] 0.9 {ratio} 0.9-2.4 [facility] [place] Work Phone: Serum or plasma calcium sam urement (mass/volume)on 04-06-2022 Calcium [Mass/Vol] 8.6 mg/dL 8.5-10.1 [facility] Work Phone: Serum or plasma cholesterol in HDL measurement (mass/volume)on 04-06-2022 Cholesterol in HDL [Mass/Vol] 65 mg/dL >40 [facility] [place] Work Phone: Comment on above: The drugs N-Acetylcy steine and Metamizole may falsely depress this assay. Reference Range HDL <40 mg/dL Low HDL Cholesterol HDL >or= 60 mg/dL High HDL Cholesterol Serum or plasma cholesterol in VLDL measurement (mass/volume)on 04-06-2022 Cholesterol in VLDL [Mass/Vol] 15 mg/dL 5-40 [facility] [place] Work Phone: Serum or plasma creatinine m easurement (mass/volume)on 04-06-2022 Creatinine [Mass/Vol] 0.78 mg/dL 0.70-1.30 [facility] Work Phone: Comment on above: The validity of the calculated GFR & GFRAA in patients over 70 years has not been determined. Clinical correlation is essential. Serum or plasma low density lipoprotein (LDL) cholesterol measurement (mass/volume)on 04-06-2022 Cholesterol in LDL [Mass/Vol] 72 mg/dL 0-130 [facility] [place] Work Phone: Serum or plasma urea nitroge n measurement (mass/volume)on 04-06-2022 Urea nitrogen [Mass/Vol] 14 mg/dL 7-18 [facility] [place] Work Phone: Thin prep Papanicolaou smear with manual screeningon 04-06-2022 Thin prep Papanicolaou smear with manual screening 17 U/L 15-37 [facility] [place] Work Phone: Thin prep Papanicolaou smear with manual screening 5 5-15 [facility] [place] Work Phone: No Panel Informationon 01-07 Prostate Specific Antigen Total 2.68 ng/mL 0.0-4.0 [facility] [place] Work Phone: Comment on above: This test was perfor med using the TPSA assay method for the[employer] chemistry system. Values obtained with differentassay methods cannot be used interchangably.When changing PSA assays in the course of monitoring apatient, additional sequential testing should be carriedout to confirm baseline values. Absolute lymphocyte counton 11-04-2021 Lymphocytes Auto (Unsp spec) [#/Vol] 2.03 10*3/uL 0.83-4.51 [facility] [place] Work Phone: Basophil percentageon 2021 Basophils/100 WBC (Bld) 1.3 % 0-1 [facility] Work Phone: Bilirubin [Mass/Vol] 0.70 mg/dL 0.20-1.00 [facility] Work Phone: Comment on above: For patients on eltr ombopag therapy, use of [place] TBIL is not recommended. Chloride [Moles/Vol] 109 mmol/L 98-107 [facility] Work Phone: Cholesterol [Mass/Vol] 163 mg/dL <200 [facility] Work Phone: Comment on above: <200 mg/dL Desirable 200-240 mg/dL Borderline >240 mg/dL High Risk Eosinophils/100 WBC (Bld) 5.2 % 0-5 [facility] [place] Work Phone: Glucose [Mass/Vol] 98 mg/dL 74-106 [facility] Work Phone: Neutrophils (Bld) [#/Vol] 2.5 10*3/uL 2.0-7.7 [facility] [place] Work Phone: Neutrophils/100 WBC (Bld) 45.6 % 47-70 [facility] [place] Work Phone: Potassium [Moles/Vol] 4.2 mmol/L 3.5-5.1 [facility] Work Phone: Protein [Mass/Vol] 6.8 g/dL 6.4-8.2 [facility] Work Phone: Sodium [Moles/Vol] 142 mmol/L 136-145 [facility] Work Phone: Triglyceride [Mass/Vol] 50 mg/dL [facility] Work Phone: Comment on above: The drugs N-Acetylcy steine and Metamizole may falsely depress this assay.Serum Triglycerides Reference Interval Normal <150 mg/dL Borderline high 150 - 199 mg/dL High 200 - 499 mg/dL Very High > or = 500 mg/dL WBC (Bld) [#/Vol] 5.4 10*3/uL 4.4-11.0 [facility] Work Phone: Blood erythrocytes count (nu mber/volume)on 11-04-2021 RBC (Bld) [#/Vol] 4.36 10*6/uL 4.6-6.2 [facility]: Blood hemoglobin measurement (mass/volume)on 11-04-2021 Hemoglobin (Bld) [Mass/Vol] 13.9 g/dL 13.0-16.5 [facility] [place] Work Phone: Blood lymphocytes/100 leukoc yteson 11-04-2021 Lymphocytes/100 WBC (Bld) 37.8 % 19-41 [facility] [place] Work Phone: Blood monocytes/100 leukocyt eson 11-04-2021 Monocytes/100 WBC (Bld) 9.9 % 0-10 [facility] Work Phone: Blood platelet mean volumeon 11-04-2021 Platelet mean volume (Bld) [Entitic vol] 9.5 fL 6.2-12.0 [facility] [place] Work Phone: Determination of erythrocyte mean corpuscular volume (MCV)on 11-04-2021 MCV (RBC) [Entitic vol] 94.7 fL 80-94 [facility] Work Phone: Hematocrit Auto (Bld) [Volum e fraction]on 11-04-2021 Hematocrit (Bld) [Volume fraction] 41.3 % 40-54 [facility] [place] Work Phone: Laboratory - Chemistry and C hemistry - challengeon 11-04-2021 ALP [Catalytic activity/Vol] 66 U/L 45-117 [facility] [place] Work Phone: ALT [Catalytic activity/Vol] 28 U/L 16-61 [facility] [place] Work Phone: CO2 [Moles/Vol] 31.0 mmol/L 21.0-32.0 [facility] [place] Work Phone: Free T4 [Mass/Vol] 0.96 ng/dL 0.76-1.46 [facility] Work Phone: Globulin (S) [Mass/Vol] 3.3 g/dL 2.2-4.2 [facility] Work Phone: Urea nitrogen/Creatinine [Mass ratio] 15.6 mg/mg 10-20 [facility] [place] Work Phone: Laboratory - Hematology and Cell countson 11-04-2021 Erythrocyte distribution width (RBC) [Entitic vol] 46.2 fL 35.1-43.9 [facility] Work Phone: Erythrocyte distribution width (RBC) [Ratio] 13.2 % 11.6-14.6 [facility] [place] Work Phone: Immature granulocytes/100 WBC (Bld) 0.200 % 0.0-0.9 [facility] [place] Work Phone: Comment on above: IG% - Immature Granu locytes (promyelocytes, myelocytes and metamyelocytes) > 1% indicates that a LEFT SHIFT is Present. MCH (RBC) [Entitic mass] 31.9 pg 27.0-32.0 [facility] [place] Work Phone: Nucleated RBC/100 WBC (Bld) [Ratio] 0 % 0-5 [facility] [place] Work Phone: MCHC Auto (RBC) [Mass/Vol]on 11-04-2021 MCHC (RBC) [Mass/Vol] 33.7 g/dL 32-36 [facility] No Panel Informationon 11-04 Estimated GFR (MDRD) Amer 116 mL/min >60 [facility] [place] Work Phone: Comment on above: GFR Calc Estimated GFR (MDRD) Non-Af Amer 95 mL/min >60 [facility] [place] Work Phone: Comment on above: Non- GFR Calc Free Triiodothyronine (T3) pg/dL 2.4 pg/mL 2.18-3.98 [facility] [place] Work Phone: Thyroid Stimulating Hormone (TSH) 3.12 uIU/mL 0.358-3.74 [facility] [place] Work Phone: Platelets bldon 11-04-2021 Platelets (Bld) [#/Vol] 232 10*3/uL 150-450 [facility] [place] Work Phone: Serum or plasma albumin sam urement (mass/volume)on 11-04-2021 Albumin [Mass/Vol] 3.5 g/dL 3.2-5.0 [facility] Work Phone: Serum or plasma albumin/glob ulin mass ratioon 11-04-2021 Albumin/Globulin [Mass ratio] 1.1 {ratio} 0.9-2.4 [facility] [place] Work Phone: Serum or plasma calcium sam urement (mass/volume)on 11-04-2021 Calcium [Mass/Vol] 8.7 mg/dL 8.5-10.1 [facility] Work Phone: Serum or plasma cholesterol in HDL measurement (mass/volume)on 11-04-2021 Cholesterol in HDL [Mass/Vol] 75 mg/dL [facility] [place] Work Phone: Comment on above: The drugs N-Acetylcy steine and Metamizole may falsely depress this assay. Reference Range HDL <40 mg/dL Low HDL Cholesterol HDL >or= 60 mg/dL High HDL Cholesterol Serum or plasma cholesterol in VLDL measurement (mass/volume)on 11-04-2021 Cholesterol in VLDL [Mass/Vol] 10 mg/dL 5-40 [facility] [place] Work Phone: Serum or plasma creatinine m easurement (mass/volume)on 11-04-2021 Creatinine [Mass/Vol] 0.83 mg/dL 0.70-1.30 [facility] Work Phone: Comment on above: The validity of the calculated GFR & GFRAA in patients over 70 years has not been determined. Clinical correlation is essential. Serum or plasma low density lipoprotein (LDL) cholesterol measurement (mass/volume)on 11-04-2021 Cholesterol in LDL [Mass/Vol] 78 mg/dL 0-130 [facility] [place] Work Phone: Serum or plasma urea nitroge n measurement (mass/volume)on 11-04-2021 Urea nitrogen [Mass/Vol] 13 mg/dL 7-18 [facility] [place] Work Phone: Thin prep Papanicolaou smear with manual screeningon 11-04-2021 Thin prep Papanicolaou smear with manual screening 18 U/L 15-37 [facility] [place] Work Phone: Thin prep Papanicolaou smear with manual screening 2 5-15 [facility] [place] Work Phone: Vital Signs Date Time Vital Sign Value Performing Clinician Faci lity 12-20-2024 10:01-0400 Body height 175.[address] Clarita Vogel MD Work Phone: [facility] [place] 12-20-2024 10:01-0400 Body mass index (BMI) [Ratio] 27.9 kg/m2 Dr. Clarita Vogel MD Work Phone: [facility] [place] 12-20-2024 10:01-0400 Body temperature 98.7 [degF] Dr. Clarita Vogel MD Work Phone: [facility] [place] 12-20-2024 10:01-0400 Body weight 85.[address] Clarita Vogel MD Work Phone: [facility] [place] 12-20-2024 10:01-0400 Diastolic blood pressure 78 mm[Hg] Dr. Clarita oVgel MD Work Phone: [facility] [place] 12-20-2024 10:01-0400 Heart rate 53 /min Dr. Clarita Vogel MD Work Phone: [facility] [place] 12-20-2024 10:01-0400 Respiratory rate 16 /min Dr. Clarita Vogel MD Work Phone: [facility] [place] 12-20-2024 10:01-0400 SaO2% (BldA) [Mass fraction] 97 % Dr. Clarita Vogel MD Work Phone: [facility] [place] 12-20-2024 10:01-0400 Systolic blood pressure 128 mm[Hg] Dr. Clarita Vogel MD Work Phone: [facility] [place] 11-27-2024 08:03-0400 Body height 175.[address] Clarita Vogel MD Work Phone: [facility] [place] 11-27-2024 08:03-0400 Body mass index (BMI) [Ratio] 27.6 kg/m2 Dr. Clarita Vogel MD Work Phone: [facility] [place] 11-27-2024 08:03-0400 Body temperature 98.6 [degF] Dr. Clarita Vogel MD Work Phone: [facility] [place] 11-27-2024 08:03-0400 Body weight 85.[address] Clarita Vogel MD Work Phone: [facility] [place] 11-27-2024 08:03-0400 Diastolic blood pressure 63 mm[Hg] Dr. Clarita Vogel MD Work Phone: [facility] [place] 11-27-2024 08:03-0400 Heart rate 63 /min Dr. Clarita Vogel MD Work Phone: [facility] [place] 11-27-2024 08:03-0400 Respiratory rate 16 /min Dr. Clarita Vogel MD Work Phone: [facility] [place] 11-27-2024 08:03-0400 SaO2% (BldA) [Mass fraction] 96 % Dr. Clarita Vogel MD Work Phone: [facility] [place] 11-27-2024 08:03-0400 Systolic blood pressure 101 mm[Hg] Dr. Clarita Vogel MD Work Phone: [facility] [place] 10-05-2024 07:42-0400 Body mass index (BMI) [Ratio] 27.4 kg/m2 Dr. Clarita Vogel MD Work Phone: [facility] [place] 10-05-2024 07:42-0400 Body weight 84.[address] Clarita Vogel MD Work Phone: [facility] [place] 10-05-2024 07:42-0400 Diastolic blood pressure 75 mm[Hg] Dr. Clarita Vogel MD Work Phone: [facility] [place] 10-05-2024 07:42-0400 Heart rate 52 /min Dr. Clarita Vogel MD Work Phone: [facility] [place] 10-05-2024 07:42-0400 Respiratory rate 18 /min Dr. Clarita Vogel MD Work Phone: [facility] [place] 10-05-2024 07:42-0400 SaO2% (BldA) [Mass fraction] 99 % Dr. Clarita Vogel MD Work Phone: [facility] [place] 10-05-2024 07:42-0400 Systolic blood pressure 122 mm[Hg] Dr. Clarita Vogel MD Work Phone: [facility] [place] 05-17-2023 11:16-0500 Body temperature 98.2 [degF] Dr. Clarita Vogel Work Phone: [facility] [place] 05-17-2023 11:16-0500 Diastolic blood pressure 86 mm[Hg] Dr. Clarita Vogel Work Phone: [facility] [place] 05-17-2023 11:16-0500 Heart rate 70 /min Dr. Clarita Vogel Work Phone: [facility] 05-17-2023 11:16-0500 Respiratory rate 14 /min Dr. Clarita Vogel Work Phone: [facility] 05-17-2023 11:16-0500 SaO2% (BldA) [Mass fraction] 97 % Dr. Clarita Vogel Work Phone: [facility] [place] 05-17-2023 11:16-0500 Systolic blood pressure 156 mm[Hg] Dr. Clarita Vogel Work Phone: [facility] 04-21-2023 08:50-0500 Body height 175.[address] Clarita Vogel Work Phone: [facility] [place] 04-21-2023 08:50-0500 Body mass index (BMI) [Ratio] 26.7 kg/m2 Dr. Clarita Vogel Work Phone: [facility] [place] 04-21-2023 08:50-0500 Body temperature 97.6 [degF] Dr. Clarita Vogel Work Phone: [facility] 04-21-2023 08:50-0500 Body weight 82.[address] Clarita Vogel Work Phone: [facility] 04-21-2023 08:50-0500 Diastolic blood pressure 78 mm[Hg] Dr. Clarita Vogel Work Phone: [facility] 04-21-2023 08:50-0500 Heart rate 58 /min Dr. Clarita Vogel Work Phone: [facility] [place] 04-21-2023 08:50-0500 Respiratory rate 16 /min Dr. Clarita Vogel Work Phone: [facility] 04-21-2023 08:50-0500 SaO2% (BldA) [Mass fraction] 96 % Dr. Clarita Vogel Work Phone: [facility] [place] 04-21-2023 08:50-0500 Systolic blood pressure 133 mm[Hg] Dr. Clarita Vogel Work Phone: [facility] [place] 04-08-2023 09:23-0400 Body height 175.[address] Clarita Vogel Work Phone: [facility] 04-08-2023 09:23-0400 Body mass index (BMI) [Ratio] 26.6 kg/m2 Dr. Clarita Vogel Work Phone: [facility] [place] 04-08-2023 09:23-0400 Body weight 81.[address] Clarita Vogel Work Phone: [facility] 04-08-2023 09:23-0400 Diastolic blood pressure 77 mm[Hg] Dr. Clarita Vogel Work Phone: [facility] 04-08-2023 09:23-0400 Heart rate 64 /min Dr. Clarita Vogel Work Phone: [facility] 04-08-2023 09:23-0400 Respiratory rate 18 /min Dr. Clarita Vogel Work Phone: [facility] 04-08-2023 09:23-0400 Systolic blood pressure 132 mm[Hg] Dr. Clarita Vogel Work Phone: [facility] 10-21-2022 08:04-0400 Body height 175.[address] Clarita Vogel Work Phone: [facility] 10-21-2022 08:04-0400 Body mass index (BMI) [Ratio] 27.1 kg/m2 Dr. Clarita Vogel Work Phone: [facility] 10-21-2022 08:04-0400 Body temperature 97.5 [degF] Dr. Clarita Vogel Work Phone: [facility] 10-21-2022 08:04-0400 Body weight 83.[address] Clarita Vogel Work Phone: [facility] 10-21-2022 08:04-0400 Diastolic blood pressure 73 mm[Hg] Dr. Clarita Vogel Work Phone: [facility] 10-21-2022 08:04-0400 Heart rate 57 /min Dr. Clarita Vogel Work Phone: [facility] 10-21-2022 08:04-0400 Respiratory rate 16 /min Dr. Clarita Vogel Work Phone: [facility] 10-21-2022 08:04-0400 SaO2% (BldA) [Mass fraction] 96 % Dr. Clarita Vogel Work Phone: [facility] 10-21-2022 08:04-0400 Systolic blood pressure 115 mm[Hg] Dr. Clarita Vogel Work Phone: [facility] 04-09-2022 09:22-0400 Body temperature 96 [degF] Dr. Clarita Vogel Work Phone: [facility] Work Phone: 04-09-2022 09:22-0400 Body weight 81.[address] Clarita Vogel Work Phone: [facility] Work Phone: 04-09-2022 09:22-0400 Diastolic blood pressure 78 mm[Hg] Dr. Clarita Vogel Work Phone: [facility] Work Phone: 04-09-2022 09:22-0400 Heart rate 68 /min Dr. Clarita Vogel Work Phone: [facility] Work Phone: 04-09-2022 09:22-0400 Respiratory rate 18 /min Dr. Clarita Vogel Work Phone: [facility] Work Phone: 04-09-2022 09:22-0400 Systolic blood pressure 134 mm[Hg] Dr. Clarita Voegl Work Phone: [facility] Work Phone: 03-19-2022 10:15-0400 Body height 175.[address] Clarita Vogel Work Phone: [facility] Work Phone: 03-19-2022 10:15-0400 Body mass index (BMI) [Ratio] 26.7 kg/m2 Dr. Clarita Vogel Work Phone: [facility] Work Phone: 03-19-2022 10:15-0400 Body weight 82.[address] Clarita Vogel Work Phone: [facility] Work Phone: 03-19-2022 10:15-0400 Diastolic blood pressure 64 mm[Hg] Dr. Clarita Vogel Work Phone: [facility] Work Phone: 03-19-2022 10:15-0400 Heart rate 68 /min Dr. Clarita Vogel Work Phone: [facility] Work Phone: 03-19-2022 10:15-0400 Respiratory rate 16 /min Dr. Clarita Vogel Work Phone: [facility] Work Phone: 03-19-2022 10:15-0400 Systolic blood pressure 130 mm[Hg] Dr. Clarita Vogel Work Phone: [facility] Work Phone: 03-13-2022 09:32-0400 Body mass index (BMI) [Ratio] 26.9 kg/m2 Dr. Clarita Vogel Work Phone: [facility] Work Phone: 03-13-2022 09:32-0400 Body temperature 98 [degF] Dr. Clarita Vogel Work Phone: [facility] Work Phone: 03-13-2022 09:32-0400 Body weight 82.[address] Clarita Vogel Work Phone: [facility] Work Phone: 03-13-2022 09:32-0400 Diastolic blood pressure 60 mm[Hg] Dr. Clarita Vogel Work Phone: [facility] Work Phone: 03-13-2022 09:32-0400 Heart rate 74 /min Dr. Clarita Vogel Work Phone: [facility] Work Phone: 03-13-2022 09:32-0400 Respiratory rate 15 /min Dr. Clarita Vogel Work Phone: [facility] Work Phone: 03-13-2022 09:32-0400 SaO2% (BldA) [Mass fraction] 98 % Dr. Clarita Vogel Work Phone: [facility] Work Phone: 03-13-2022 09:32-0400 Systolic blood pressure 120 mm[Hg] Dr. Clarita Vgoel Work Phone: [facility] Work Phone: 02-24-2022 10:06-0400 Body mass index (BMI) [Ratio] 26.2 kg/m2 Dr. Clarita Vogel Work Phone: [facility] Work Phone: 02-24-2022 10:06-0400 Body temperature 97.9 [degF] Dr. Clarita Vogel Work Phone: [facility] Work Phone: 02-24-2022 10:06-0400 Body weight 82.[address] Clarita Vogel Work Phone: [facility] Work Phone: 02-24-2022 10:06-0400 Diastolic blood pressure 78 mm[Hg] Dr. Clarita Vogel Work Phone: [facility] Work Phone: 02-24-2022 10:06-0400 Heart rate 67 /min Dr. Clarita Vogel Work Phone: [facility] Work Phone: 02-24-2022 10:06-0400 Respiratory rate 16 /min Dr. Clarita Vogel Work Phone: [facility] Work Phone: 02-24-2022 10:06-0400 SaO2% (BldA) [Mass fraction] 98 % Dr. Clarita Vogel Work Phone: [facility] Work Phone: 02-24-2022 10:06-0400 Systolic blood pressure 136 mm[Hg] Dr. Clarita Vogel Work Phone: [facility] Work Phone: Encounters Encounter Date Encounter Type Care Provider Facility Start: 04-18-2025 ambulatory Clarita Vogel Facility :[facility] Start: 01-15-2025 End: 01-15-[address] Clarita Vogel MD Work Phone: -Physical Therapy Start: 01-15-2025 End: 01-15-[address] Clarita Vogel MD -Physical Therapy Work Phone: Start: 12-20-2024 End: 12-20-[address] Clarita Vogel MD -[facility] Work Phone: Start: 12-20-2024 End: 12-20-[address] Clarita Vogel MD Work Phone: -[facility] Start: 11-27-2024 End: 11-27-[address] Clarita Vogel MD -[facility] Work Phone: Start: 11-27-2024 End: 11-27-[address] Clarita Vogel MD Work Phone: [facility] Work Phone: Start: 11-20-2024 End: 11-20-[address] Clarita Vogel MD Work Phone: [facility] Work Phone: Start: 11-20-2024 End: 11-20-[address] Clarita Vogel MD -Laboratory Work Phone: Start: 11-20-2024 End: 11-20-2024 ambulatory Clartia Vogel Facility:[facility] Start: 10-05-2024 End: 10-05-2024 Patient encounter procedure Danielle Chery SEED EXPERT-C -[facility] Work Phone: Start: 10-05-2024 End: 10-05-2024 ambulatory Danielle Chery SEED EXPERT Facility:[facility] Start: 07-03-2024 End: 07-03-2024 ambulatory Clarita Vogel Facility:[facility] Start: 06-02-2024 End: 06-02-2024 ambulatory [facility] Facility:[facility] Start: 05-29-2024 End: 05-29-2024 ambulatory Clarita Vogel Facility:[facility] Start: 05-23-2024 End: 05-23-2024 [facility] Start: 06-01-2023 End: 06-01-[address] Clarita Vogel Work Phone: [facility] Work Phone: Start: 06-01-2023 End: 06-01-[address] Clarita Vogel Work Phone: [facility] Work Phone: Start: 05-17-2023 End: 05-17-[address] Clarita Vogel Work Phone: [facility] Work Phone: Start: 05-17-2023 End: 05-17-[address] Clarita Vogel Work Phone: [facility] Work Phone: Start: 04-21-2023 End: 04-21-[address] Clarita Vogel Work Phone: [facility] Work Phone: Start: 04-13-2023 End: 04-13-[address] Clarita Vogel Work Phone: [facility] Work Phone: Start: 04-13-2023 End: 04-13-[address] Clarita Vogel Work Phone: [facility] Work Phone: Start: 04-08-2023 End: 04-08-[address] Clarita Vogel Work Phone: [facility] Work Phone: Start: 03-18-2023 End: 03-18-[address] Clarita Vogel Work Phone: [facility] Work Phone: Start: 03-18-2023 End: 03-18-[address] Clarita Vogel Work Phone: [facility] Work Phone: Start: 03-01-2023 Non-patient / Non-visit Dr. Swati Vogel Work Phone: [facility] Work Phone: Start: 02-26-2023 Non-patient / Non-visit Dr. Swati Vogel Work Phone: [facility] Start: 02-25-2023 End: 02-25-[address] [facility] Work [facility] Start: 02-25-2023 Non-patient / Non-visit Dr. Swati Vogel Work Phone: [facility] Start: 10-27-2022 End: 10-27-[address] Clarita Vogel Work Phone: [facility] Work Phone: Start: 10-27-2022 End: 10-27-[address] Clarita Vogel Work Phone: [facility] Start: 10-21-2022 End: 10-21-[address] Clarita Vogel Work Phone: [facility] Start: 10-14-2022 End: 10-14-2022 ambulatory [facility] Work Phone: Start: 10-14-2022 End: 10-14-2022 Patient encounter procedure [facility] Start: 04-09-2022 End: 04-09-[address] Clarita Vogel Work Phone: [facility] Start: 04-06-2022 End: 04-06-[address] Clarita Vogel Work Phone: [facility] Work Phone: Start: 04-06-2022 End: 04-06-[address] [facility] Start: 03-19-2022 End: 03-19-[address] Clarita Vogel Work Phone: [facility] Start: 03-13-2022 End: 03-13-[address] Clarita Vogel Work Phone: [facility] Start: 02-25-2022 End: 02-25-[address] Clariat Vogel Work Phone: [facility] Start: 01-07-2022 End: 01-07-[address] Clarita Vogel Work Phone: [facility] Start: 11-04-2021 End: 11-04-2021 Patient encounter procedure [facility] Procedures Date Procedure Procedure Detail Performing Clinician [...] Activity Detail Author Start: 04-21-2023 Patient referral [facility] Work Phone: CBC W Auto Different ial panel - Blood [facility] Comprehensive metabo lic 1999 panel - Serum or Plasma [facility] Lipid 1996 panel - S sukhi or Plasma [facility] Patient referral [facility] Work Phone: Prostate specific an tigen measurement [facility] T4 free measurement [facility] Work Phone: T4 free measurement [facility] Thyroid stimulating hormone measurement [facility] Work Phone: Thyroid stimulating hormone measurement [facility] Triiodothyronine, fr ee measurement [facility] Work Phone: Triiodothyronine, fr ee measurement [facility] Vitamin D, 25-hydrox y measurement [facility] Immunizations Immunization Date Immunization Notes Care Provider Fa noris 04-15-2024 RSV Adult Recombinan t (Arexvy) Dr. Clarita Vogel MD Work Phone: [facility] 03-10-2024 influenza, high dose seasonal, preservative-free Dr. Clarita Vogel MD Work Phone: [facility] 03-10-2024 Pfizer Covid-19 (Comirnaty) Dr. Clarita Vogel MD Work Phone: [facility] 03-01-2021 Covid [facility]Pf[facility] 02-19-2021 influenza, injectabl e, quadrivalent, preservative free Dr. Clarita Vogel Work Phone: [facility] 02-19-2021 influenza, seasonal, injectable [facility] 08-26-2020 Covid (Pfizer) [facility] 08-05-2020 Covid (Pfizer) [facility] 06-07-2018 zoster vaccine recombinant [facility] 04-07-2018 zoster vaccine recombinant [facility] 03-07-2013 pneumococcal conjuga te vaccine, 13 valent [facility] 03-07-2010 pneumococcal polysaccharide vaccine, 23 valent [facility] 01-06-2008 tetanus toxoid, redu meir diphtheria toxoid, and acellular pertussis vaccine, adsorbed [facility] Payers Date Payer Category Payer [employer] ( and others) [id number] 2024 Self-pay [id number] 2019 [employer] ( and others) [id number] 2010 Medicare [id number] Unknown [id number] Unknown [id number] Unknown [id number] Unknown [id number] Unknown [id number] Unknown [id number] Unknown [id number] Unknown [id number] Unknown [id number] Unknown [id number] Social History Date Type Detail Facility Start: 05-07-2021 End: 05-17-2023 Tobacco smoking status ORIS Unknown if ever smoked [facility] Start: 1945 Sex Assigned At Male [facility] Start: 07-03-2024 Tobacco smoking stat us ORIS Ex-smoker (finding) [facility] Clinical Notes 10-05-2024 to 01-15-2025 Note Date & Type Note Facility 01-15-2025 Discharge summary [facility] 01-15-2025 Discharge summary Note Date/Time January 15, 2025 10:51am [facility] Physical Therapy [facility] [address] [place] [address]. [address] [place] [address] / REHABILITATION SERVICES DISCHARGE SUMMARY MR#: [id number] Acct: [id number] Name: SHANKAR CHOW Rep #: [id number] : 1945 79 From: Cert. SULAIMAN Pappas, OCS Referring DrSusan: Dr. Clarita Vogel MD Status: REG RCR Insurance: MEDICARE PART A B FOR LIFE Discharge Summary D/C summary: It has been my pleasure to treat SHANKAR CHOW referred by Dr. Clarita Vogel MD, with the diagnosis of Bicipital tendonitis, right shoulder for a total of 7 visit(s). Discharge Date: 01/15/25 Please see the following information for a summary of their discharge status. Subjective Subjective: Doing well Full ROM ,no pain Able to left -No formal visits witH DR Lee Right Shoulder: Pain Intensity (Out of 10): 1 Overall Improvement % Improvement: 100 Objective Objective/Function: Posture: Forward head posture ,Thoracic kyphosis Palpation: Tenderness to palpation on right side proximal bicep tendon insertions UE ROM: WNL AROM shoulder flexion 160 degrees ,170 degrees ,ER 90 ,IR UE MMT: grossly 4+/5 Goals Goal 1:: Patient to decrease pain to improve quality of life and participation in leisure activities. Goal Progress: Goal Met Goal 2:: Patient to improve postural strength to improve pain and prevent further injury of shoulder/bicep. Goal Progress: Goal Met Goal 3:: Patient to improve gross shoulder strength to stabilize the joint and reduce pain for ease with functional activties. Goal Progress: Goal Met Goal 4:: Patient to improve Quick DASH score by 10 points to improve quality of life. Goal Progress: Goal Met Plan Plan: D/C TO HEP D/C Information Discharge Comments: HEP d/c sentence: If there are questions or concerns regarding this patient's physical therapy, please feel free to call me at [phone]. Thank you for the referral of thispatient. Sincerely, Star Alexander PT, Cert MDT, OCS Balance/Gait/Functional tests Balance/Special Test Scores Quick DASH Score: 2.2725 Improvement % Improvement: 100 <Electronically signed by Dominick Galdamez PT. SULAIMAN, OCS> 01/15/25 1051 CC: Dr. Clarita Vogel MD ~ [place] Signed [facility] Work Phone: 1(391) 428-830307-16-2025 [facility] [address] [place] [address] OFFICE VISIT Date of Service: 12/20/24 MR#: [id number] Acct: [id number] Name: SHANKAR CHOW Rep #: [id number] : 1945 Provider: Dr. Nadya Vogel MD Age/Sex: 79/M Location: [facility] Status: Signed Intake Vital Signs 11/27/24 08:03 12/20/24 10:01 Height 5 ft 9 in 5 ft 9 in Weight: 187 lb 8 oz 189 lb 2 oz BMI 27.6 27.9 BP 101/63 128/78 H Blood Pressure Location Lt brachial Lt brachial Position Sitting Sitting Respiration 16 16 Pulse 63 53 L Pulse Source Monitor Monitor Temp 98.6 F 98.7 F Temp Source Temporal Temporal Pulse Oximetry (%) 96 97 Oxygen Delivery Method room air room air Intake Visit Reasons: RT Bicep/Shoulder Pain Chief Complaint: Right bicep/shoulder pain Substation Superintendent Required: No Accompanied by: Self Is patient in pain?: Yes (Right shoulder/bicep) Pain scale (1-10): 3 Allergies ezetimibe (From Zetia) Adverse Reaction (Intermediate, Verified 12/20/24 09:55) unknown Sulfa (Sulfonamide Antibiotics) Adverse Reaction (Intermediate, Verified 12/20/24 09:55) uinknown Medications ?Medication ?Instructions ?Recorded ?Confirmed ?Type aspirin 81 mg tablet,delayed 81 mg PO QDAY 06/08/17 History release finasteride 5 mg tablet 5 mg PO QDAY 06/08/17 History multivitamin 1 tab PO QDAY 06/08/1712/20 History pravastatin 40 mg tablet 40 mg PO DAILY #90 tabs 12/08/2812/20/24 Rx sildenafil 100 mg tablet (Viagra) 100 mg PO ONCE PRN s exual activity 09/06/24 12/20/24 Rx #20 tabs levothyroxine 50 mcg tablet 50 mcg PO DAILY #90 tabs 0 12/18/24 12/20/24 Rx Have you fallen in the past year?: No PFSH Medical History (Updated 12/20/24 @ 10:[address] Clarita Vogel MD) Bicipital tendinitis, right shoulder Carpal tunnel syndrome of right wrist Popliteal [...] times per week HPI HPI Chief Complaint: Right bicep/shoulder pain Details: SHANKAR CHOW, is a 79 M who presents to the office today for an acute care follow-up visit. 79-year-old gentleman who has had right shoulder discomfort. Initially had some vague discomfort in the right bicep area and then worked itsway up to the shoulder. Does not recall any specific injury tothis. No abrupt onset of pain. Gradual process. He has not had any situations recently where he waspotentially overusing the right shoulder in any way to his recollection. It is bothersome at nighttime so he is trying to lay more on the left side and relaxing the right side. No clicks, locking, popping in the rightshoulder. He describes this in the anterior right shoulder. Review of systems per chart. Physical exam. Vital signs on chart. My exam is limited and focused. SHOULDER EVALUATION Inspection -unremarkable right. Venus's test (Supraspinatus) -unremarkable right External rotation (Infrasinatus) -unremarkable right. [place]ello's Lift Off (Subscapularis) -normal strength right, mild anterior discomfort Mcelhattan test (Subscapularis) - Painful drop-arm -negative. Arc - Sulcus sign -negative. Passive painful arc (Neer) - Parag-Hinson - BICEP Speeds test -mild discomfort, right. Yergason's test - SLAP Active-compression (O'Briens sign) -negative right. Crank test - Reproducible tenderness reproduces basically all the discomfort with palpation over the coracoid. ROS Const Constitutional: No body ache, chills, excessive sweating, fatigue, fever(s), frequent falls, headache(s), snoring, weakness or change in appetite Eyes Eyes: No blurry vision, change in vision, eye pain or Light sensitivity ENT ENT: No abnormal hearing, ear or mastoid pain, tinnitus, nasal congestion, headache(s), neck pain or sore throat Resp Respiratory: No cough, shortness of breath, snoring or wheezing Cardio Cardiology: No chest pain at rest, chest pain with exertion, excessive sweating,dyspnea on exertion, lightheadedness, orthopnea or palpitations Gastro GI: No abdominal pain, change in bowel habits, constipation, cramping, diarrhea,nausea/dyspepsia orvomiting Genitourinary Male: No burning urination, painful urination, urinary incontinence or urinary frequency Musc Musculoskeletal: Positive for limited range of motion and other (Right shoulder/bicep pain); No abnormal gait, joint pain, back pain, muscle weakness, neck pain or numbness Skin Skin: No dry skin, redness, lesions, itchy eyes, rash or wounds Neuro Neurology: No abnormal gait, abnormal hearing, weakness, frequent falls, headache(s), memory loss or numbness Psych Psychiatric: No anxiety, No change in appetite, No depression, No memory loss and No Thoughts of harming yourself/Others Endo Endocrine: No cold intolerance, excessive sweating, fatigue, flushing, heat intolerance, increased thirst/drinking or increased hunger Aller/Imm Allergy/Immunologic: No itchy eyes, seasonal allergy symptoms, hives or wheezing Jalil/Lymp Hematologic/Lymphatic: No easy bleeding or easy bruising Coding Level of Care Code Off vis,est,level 2 Diagnoses Bicipital tendinitis, right shoulder M75.21 Time Spent (min) 20 Assessment and Plan Assessment and Plan (1) Bicipital tendinitis, right shoulder: Status: Acute Orders: Referrals PT Referral M75.21 - Bicipital tendinitis, right shoulder Plan Details Additional Comments: Patient presented today as above. He appears to have bicipital tendinitis, short head biceps. I would suggest a trial of physical therapy. Hopefully he would be able to do home exercise regimen. He has had physical therapy at [facility] for his knees and has done well with that and feels comfortable. Hopefully however a single session or perhaps 2, for instruction on home therapywould be appropriate. Ice, and expectation of improvement over time as we discussed. Avoid NSAID I think at this point as we discussed. 20-minute visit. Clinical Quality Measures Falls Risk Screening/Assistive Devices Have you fallen in the past year?: No 12/20/24 1034 r MD> Date _ Clarita Vogel MD Cosigner Signature: Date (if applicable) CC: ~ [facility]07-16-2025 Progress note Author Clarita Vogel [facility] Note Date/Time December 20, 2024 10:3 4am [facility] [address] [place] [address] OFFICE VISIT Date of Service: 12/20/24 MR#: [id number] Acct: [id number] Name: SHANKAR CHOW Rep #: [id number] : 1945 Provider: Dr. Nadya Vogel MD Age/Sex: 79/M Location: [facility] Status: Signed Intake Vital Signs 11/27/24 08:03 12/20/24 10:01 Height 5 ft 9 in 5 ft 9 in Weight: 187 lb 8 oz 189 lb 2 oz BMI 27.6 27.9 BP 101/63 128/78 H Blood Pressure Location Lt brachial Lt brachial Position Sitting Sitting Respiration 16 16 Pulse 63 53 L Pulse Source Monitor Monitor Temp 98.6 F 98.7 F Temp Source Temporal Temporal Pulse Oximetry (%) 96 97 Oxygen Delivery Method room air room air Intake Visit Reasons: RT Bicep/Shoulder Pain Chief Complaint: Right bicep/shoulder pain Substation Superintendent Required: No Accompanied by: Self Is patient in pain?: Yes (Right shoulder/bicep) Pain scale (1-10): 3 Allergies ezetimibe (From Zetia) Adverse Reaction (Intermediate, Verified 12/20/24 09:55) unknown Sulfa (Sulfonamide Antibiotics) Adverse Reaction (Intermediate, Verified 12/20/24 09:55) uinknown Medications ?Medication ?Instructions ?Recorded ?Confirmed ?Type aspirin 81 mg tablet,delayed 81 mg PO QDAY 06/08/17 History release finasteride 5 mg tablet 5 mg PO QDAY 06/08/17 History multivitamin 1 tab PO QDAY 06/08/1712/20 History pravastatin 40 mg tablet 40 mg PO DAILY #90 tabs 05/0812/20/24 Rx sildenafil 100 mg tablet (Viagra) 100 mg PO ONCE PRN s exual activity 09/06/24 12/20/24 Rx #20 tabs levothyroxine 50 mcg tablet 50 mcg PO DAILY #90 tabs 0 12/18/24 12/20/24 Rx Have you fallen in the past year?: No PFSH Medical History (Updated 12/20/24 @ 10:[address] Clarita Vogel MD) Bicipital tendinitis, right shoulder Carpal tunnel syndrome of right wrist Popliteal [...] times per week HPI HPI Chief Complaint: Right bicep/shoulder pain Details: SHANKAR CHOW, is a 79 M who presents to the office today for an acute care follow-up visit. 79-year-old gentleman who has had right shoulder discomfort. Initially had some vague discomfort in the right bicep area and then worked itsway up to the shoulder. Does not recall any specific injury to this. No abrupt onset of pain. Gradual process. He has not had any situations recently where he was potentially overusing the right shoulder in any way to his recollection. It is bothersome at nighttime so he is trying to lay more on the left side and relaxing the right side. No clicks, locking, popping in the rightshoulder. He describes this in the anterior right shoulder. Review of systems per chart. Physical exam. Vital signs on chart. My exam is limited and focused. SHOULDER EVALUATION Inspection -unremarkable right. Venus's test (Supraspinatus) -unremarkable right External rotation (Infrasinatus) -unremarkable right. [place]'s Lift Off (Subscapularis) -normal strength right, mild anterior discomfort Mcelhattan test (Subscapularis) - Painful drop-arm -negative. Arc - Sulcus sign -negative. Passive painful arc (Neer) - Parag-Hinson - BICEP Speeds test -mild discomfort, right. Yergason's test - SLAP Active-compression (O'Briens sign) -negative right. Crank test - Reproducible tenderness reproduces basically all the discomfort with palpation over the coracoid. ROS Const Constitutional: No body ache, chills, excessive sweating, fatigue, fever(s), frequent falls, headache(s), snoring, weakness or change in appetite Eyes Eyes: No blurry vision, change in vision, eye pain or Light sensitivity ENT ENT: No abnormal hearing, ear or mastoid pain, tinnitus, nasal congestion, headache(s), neck pain or sore throat Resp Respiratory: No cough, shortness of breath, snoring or wheezing Cardio Cardiology: No chest pain at rest, chest pain with exertion, excessive sweating,dyspnea on exertion, lightheadedness, orthopnea or palpitations Gastro GI: No abdominal pain, change in bowel habits, constipation, cramping, diarrhea,nausea/dyspepsia or vomiting Genitourinary Male: No burning urination, painful urination, urinary incontinence or urinary frequency Musc Musculoskeletal: Positive for limited range of motion and other (Right shoulder/bicep pain); No abnormal gait, joint pain, back pain, muscle weakness, neck pain or numbness Skin Skin: No dry skin, redness, lesions, itchy eyes, rash or wounds Neuro Neurology: No abnormal gait, abnormal hearing, weakness, frequent falls, headache(s), memory loss or numbness Psych Psychiatric: No anxiety, No change in appetite, No depression, No memory loss and No Thoughts of harming yourself/Others Endo Endocrine: No cold intolerance, excessive sweating, fatigue, flushing, heat intolerance, increased thirst/drinking or increased hunger Aller/Imm Allergy/Immunologic: No itchy eyes, seasonal allergy symptoms, hives or wheezing Jalil/Lymp Hematologic/Lymphatic: No easy bleeding or easy bruising Coding Level of Care Code Off vis,est,level 2 Diagnoses Bicipital tendinitis, right shoulder M75.21 Time Spent (min) 20 Assessment and Plan Assessment and Plan (1) Bicipital tendinitis, right shoulder: Status: Acute Orders: Referrals PT Referral M75.21 - Bicipital tendinitis, right shoulder Plan Details Additional Comments: Patient presented today as above. He appears to have bicipital tendinitis, short head biceps. I would suggest a trial of physical therapy. Hopefully he would be able to do home exercise regimen. He has had physical therapy at [facility] for his knees and has done well with that and feels comfortable. Hopefully however a single session or perhaps 2, for instruction on home therapywould be appropriate. Ice, and expectation of improvement over time as we discussed. Avoid NSAID I think at this point as we discussed. 20-minute visit. Clinical Quality Measures Falls Risk Screening/Assistive Devices Have you fallen in the past year?: No 12/20/24 1034 <Electronically signed by Clarita guerra MD> Date _ Clarita Vogel MD Cosign Signature: Date (if applicable) CC: ~ [facility] Work Phone: 1(531) 371-550005-01-2025 Evaluation note* Diagnosis Onset Date Resolution Status Admit Date Vasovagal syncope acute October 8:16am Hyperlipidemia chronic October 05, 025 8:16am [facility] Work Phone: 1(998) 963-552105-01-2025 Evaluation note* Diagnosis Onset Date Resolution Status Admit Date Vasovagal syncope acute October 8:16am Hyperlipidemia chronic October 05, 025 8:16am BPH (benign prostatic hyperplasia) acute November 27, 2024 7:55am Carpal tunnel syndrome of ri ght wrist acute November 27, 2024 7:55am GERD (gastroesophageal reflu x disease) acute November 27, 2024 7:55am History of asbestos exposure acute November 27, 2024 7:55am Hypothyroidism acute November 27, 2024 7:55am Hyperlipidemia chronic November 27, 2024 7:55am Bicipital tendinitis, right shoulder acute December 20, 2024 9:49am [facility] Work Phone: Evaluation noteNo assessment information available [facility] Work Phone: Evaluation note* Diagnosis Onset Date Resolution Status Scrotal mass acute Contusion of left hand, initial encounter acute 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 Hypothyroidism acute Vasovagal syncope acute Hyperlipidemia chronic Hypothyroidism acute 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 Skin lesion acute Hyperlipidemia chronic [facility] Work Phone: Evaluation note* Diagnosis Onset Date Resolution Status GERD (gastroesophageal reflux disease) acute History of asbestos exposure acute Hypothyroidism acute Lung crackles acute [facility] Work Phone: Evaluation note* Diagnosis Onset Date Resolution Status Chest discomfort acute Vasovagal syncope acute Hyperlipidemia chronic [facility] Work Phone: Evaluation note* Diagnosis Onset Date Resolution Status Chest discomfort acute Vasovagal syncope acute Hyperlipidemia chronic BPH (benign prostatic hyperplasia) acute GERD (gastroesophageal reflux disease) acute History of asbestos exposure acute Hypothyroidism acute Lung crackles acute Hyperlipidemia chronic Left ankle sprain acute [facility] Work Phone: Hospital Discharge instructionsAmbulatory Orders* PT Referral Location: None Selected [facility] Work Phone: Reason for referral (narrative)No reason for referral [facility]: Chief Complaint and Reason for Visit Chief Complaint Admit Date 1 Y FU October 05, 2024 8:16am INT LABS November 20, 2024 7:06 am 6 M FU November 27, 2024 7:55 am Reason for Visit Admit Date Vasovagal syncope October 05, 2024 8:16am Hyperlipidemia October 05, 2024 8:16am Chief Complaint E ORDERS Chief Complaint NEED [...] crackles Hyperlipidemia Left ankle sprain Chief Complaint Admit Date 1 Y FU October 05, 2024 8:16am INT LABS November 20, 2024 7:06 am Chief Complaint Admit Date 1 Y October 05, 2024 8:16am INT LABS November 20, 2024 7:06 am 6 M FU November 27, 2024 7:55 am RT Bicep/Shoulder Pain December 20, 2024 9 :49am Reason for Visit Admit Date Vasovagal syncope October 05, 2024 8:16am Hyperlipidemia October 05, 2024 8:16am BPH (benign prostatic hyperplasia) November 27, 2024 7:55am Carpal tunnel syndrome of right wrist Ju ne 2024 7:55am GERD (gastroesophageal reflux disease) J [facility] 2024 7:55am History of asbestos exposure November 27, 2024 7:55am Hypothyroidism November 27, 2024 7:55 am Hyperlipidemia November 27, 2024 7:55 am Bicipital tendinitis, right shoulder Demetrius 2024 9:49am Chief Complaint Admit Date 1 Y FU October 05, 2024 8:16am INT LABS November 20, 2024 7:06 am 6 M FU November 27, 2024 7:55 am RT Bicep/Shoulder Pain December 20, 2024 9 :49am RIGHT SHOULDER.RX HERE January 15, 2025 10:00am Family History No Family History Records Found [...] MD Primary Care Provider Active Joshua Mcdonnell SEED EXPERT, SEED EXPERT-C Attending Provider Active Team Status: Active Member [...] Provider, Referri ng Provider Active Danielle Chery SEED EXPERT, SEED EXPERT-C Attending Provider Active Team Status: Inactive Member Role Status Dates Dr. Clarita Vogel MD Primary Care Provider, Referri ng Provider Active Kevin JUARES PA Attending Provider Active Team Status: Inactive Member Role Status Dates Dr. Clarita Vogel MD Primary Care Provider Active SUGROGE RODRIGUEZ Attending Provider, Referring Prov ider Active Team Status: Inactive Member Role Status Dates Dr. Clarita Vogel MD Primary Care Provider Active Kevin JUARES PA Attending Provider, Referring Pr ovider Active Team Status: Active Member Role Status Dates Dr. Clarita Vogel MD Primary Care Provider Active Team Status: Inactive Member Role Status Dates Dr. Clarita Vogel MD Primary Care Provider Active Start: October 05, 2024 End: October 05, 2024 Dr. Clarita Vogel MD Referring Provider Active Start: October 05, 2024 End: October 05, 2024 Danielle Chery SEED EXPERT, SEED EXPERT-C Attending Provider Active Start: October 05, 2024 End: October 05, 2024 Team Status: Inactive Member Role Status Dates Dr. Clarita Vogel MD Primary Care Provider Active Start: November 20, 2024 End: November 20, 2024 Dr. Clarita Vogel MD Attending Provider Active Start: November 20, 2024 End: November 20, 2024 Dr. Clarita Vogel MD Referring Provider Active Start: November 20, 2024 End: November 20, 2024 Team Status: Inactive Member Role Status Dates Dr. Clarita Vogel MD Primary Care Provider Active Start: November 27, 2024 End: November 27, 2024 Dr. Clarita Vogel MD Attending Provider Active Start: November 27, 2024 End: November 27, 2024 Team Status: Active Member Role/Relationship Status Dates Dr. Clarita Vogel MD Primary Care Provider Active Team Status: Inactive Member Role/Relationship Status Dates Dr. Clarita Vogel MD Primary Care Provider Active Start: October 05, 2024 End: October 05, 2024 Dr. Clarita Vogel MD Referring Provider Active Start: October 05, 2024 End: October 05, 2024 Danielle Chery NP, SEED EXPERT-C Attending Provider Active Start: October 05, 2024 End: October 05, 2024 Team Status: Inactive Member Role/Relationship Status Dates Dr. Clarita Vogel MD Primary Care Provider Active Start: November 20, 2024 End: November 20, 2024 Dr. Clarita Vogel MD Attending Provider Active Start: November 20, 2024 End: November 20, 2024 Dr. Clarita Vogel MD Referring Provider Active Start: November 20, 2024 End: November 20, 2024 Team Status: Inactive Member Role/Relationship Status Dates Dr. Clarita Vogel MD Primary Care Provider Active Start: November 27, 2024 End: November 27, 2024 Dr. Clarita Vogel MD Attending Provider Active Start: November 27, 2024 End: November 27, 2024 Team Status: Inactive Member Role/Relationship Status Dates Dr. Clarita Vogel MD Primary Care Provider Active Start: December 20, 2024 End: December 20, 2024 Dr. Clarita Vogel MD Attending Provider Active Start: December 20, 2024 End: December 20, 2024 Team Status: Inactive Member Role/Relationship Status Dates Dr. Clarita Vogel MD Primary Care Provider Active Start: January 15, 2025 End: January 15, 2025 Dr. Clarita Vogel MD Attending Provider Active Start: January 15, 2025 End: January 15, 2025 Dr. Clarita Vogel MD Referring Provider Active Start: January 15, 2025 End: January 15, 2025 (unrecognized sect ion and content) No Status Records Found INFORMATION SOURCE (unrecogn ized section and content) DATE CREATED AUTHOR 04/19/2025 [facility] FOR RECORDS PERTAINING TO PATIENTS WHO [...] BE BASED ON THE PRIMARY CLINICAL RECORDS. [facility] [employer] [facility]. provides no warranty or guarantee of the accuracy or completeness of information in this document.
[2025-05-15 07:13] LABS: Hematocrit 41.5 % (40-54); Hemoglobin 14.2 g/dL (13.0-16.5); Immature Granulocytes Count 0.020 X10^3/uL (0.0-0.0); Mean Corp Hgb Conc 34.2 g/dL (32-36); Mean Corpuscular Volume 93.3 fL (80-94); Mean Platelet Vol. 9.5 fl (6.2-12.0); NRBC Flagged by Analyzer 0 % (0-5); Platelet Count 224 K/mm3 (150-450); RBC Distribution Width CV 12.6 % (11.6-14.6); RBC Distribution Width SD 43.4 fl (35.1-43.9); Red Blood Count 4.45 M/mm3 (4.6-6.2); White Blood Count 7.0 K/mm3 (4.4-11.0)
[2025-05-15 08:22] LABS: AST(SGOT) 24 U/L (<=37); Alanine Aminotransfer ALT/SGPT 24 U/L (<=46); Albumin, Serum 4.2 g/dL (3.4-4.8); Alkaline Phosphatase 69 U/L (40-129); Anion Gap 9 (5-15); BUN 17 mg/dL (4-19); BUN/Creat Ratio 20.7 RATIO (10-20); Calcium,Total 9.1 mg/dL (7.6-11.0); Carbon Dioxide 27.4 mmol/L (21.0-32.0); Chloride 103 mmol/L (98-108); Free T3 2.7 pg/mL (2.18-3.98); Globulin 2.6 g/dL (2.2-4.2); Glucose 96 mg/dL (70-99); PSA,Total - Annual Screen 2.15 ng/mL (0.02-4.00); Potassium 4.0 mmol/L (3.3-5.1); Vitamin D,25 Hydroxy 34.2 ng/mL (30-100)
[2025-05-15 08:44] LABS: Cholesterol 173 mg/dL (<=200); Low Density Lipoprotein Calc. 84 mg/dL; Triglycerides 74 mg/dL; Very Low Density Lipoprotein 15 mg/dL (5-40); cholesterol:hdl ratio screen 2.29
== END | disposition home or self-care (01) ==
LOC: LAB 06:55
PROVIDERS: PCP Internal Medicine; Referring Provider Internal Medicine; Visit Provider Internal Medicine
DX: Z12.5 Encounter for screening for malignant neoplasm of prostate (principal); Z13.220 Encounter for screening for lipoid disorders; G56.01 Carpal tunnel syndrome, right upper limb; N40.0 Benign prostatic hyperplasia without lower urinary tract symptoms; E03.9 Hypothyroidism, unspecified; E55.9 Vitamin D deficiency, unspecified; K21.9 Gastro-esophageal reflux disease without esophagitis; E78.5 Hyperlipidemia, unspecified; Z77.090 Contact with and (suspected) exposure to asbestos
CPT/HCPCS: 36415; 80053; 80061; 82306; 84153; 84439; 84443; 84481; 85025; G0103